=== PATIENT | female | born 1995 | race Asian ===

== ENCOUNTER 2019-12-25 16:53 | Outpatient (REF) | payer OTHER, SELFPAY | END 2019-12-25 16:54 | disposition home or self-care (01) | LOC: HO.LNP 16:53 | PROVIDERS: Visit Provider Nurse Practitioner Family | DX: J02.9 Acute pharyngitis, unspecified (principal) | CPT/HCPCS: 87071; 87880 ==

== ENCOUNTER 2019-12-30 14:00 | Outpatient (REF) | payer OTHER, SELFPAY ==
[2020-01-06 14:40] LABS: Influenza A PCR NEGATIVE (Negative); Influenza B PCR NEGATIVE (Negative); Resp Syncy Virus RNA Qual PCR NEGATIVE (Negative); SARS COV2 PCR INHOUSE NEGATIVE (Negative)
== END 2019-12-30 14:01 | disposition home or self-care (01) ==
LOC: HO.HMGCLNP 14:00
PROVIDERS: Visit Provider Nurse Practitioner Family
DX: Z20.828 Contact with and (suspected) exposure to other viral communicable diseases (principal)
CPT/HCPCS: 0241U

== ENCOUNTER 2020-01-30 13:13 | Outpatient (REF) | payer OTHER, SELFPAY ==
[2020-01-30 15:11] LABS: Influenza A PCR NEGATIVE (Negative); Influenza B PCR NEGATIVE (Negative); Resp Syncy Virus RNA Qual PCR NEGATIVE (Negative); SARS COV2 PCR INHOUSE NEGATIVE (Negative)
== END 2020-01-30 13:14 | disposition home or self-care (01) ==
LOC: HO.LAB 13:13
PROVIDERS: Visit Provider Hospitalist
DX: Z20.828 Contact with and (suspected) exposure to other viral communicable diseases (principal)
CPT/HCPCS: 0241U

== ENCOUNTER 2020-03-30 22:38 | Emergency (ER) | payer OTHER, SELFPAY ==
--- NOTE | 2020-03-30 22:49 | ED_ITS ---
HPI - Skin/Abscess/Foreign Bdy General Chief complaint: Eye Problems Stated complaint: CONTACT IN EYE Time Seen by Provider: 03/30/20 22:49 Source: patient Mode of arrival: ambulatory Limitations: no limitations History of Present Illness HPI narrative: 24 y/o female presents to the ED with right eye pain since she thinks she got a contact lens stuck. She states at 7pm she tried to take the contact lens out but was unable to. Several people in her home attempted to remove the lens. She states she does not know if the lens is still in her eye. She does not feel a foreign body in her eye but she has pain, watering and redness. Her vision is blurry due to watering, otherwise no vision changes. She is wearing her glasses on arrival. She reports mild headache as well. Related Data Home Medications Medication Instructions Recorded Confirmed acetaminophen 300 mg-codeine 30 mg tab PO 12/25/19 01/30/20 tablet amitriptyline 50 mg tablet 50 mg PO BEDTIME 12/25/19 01/30/20 clonazepam 1 mg tablet 3 mg PO Q OTHER DAY PRN 12/25/19 01/30/20 erenumab-aooe 140 mg/mL 140 mg SUBCUT 12/25/19 01/30/20 subcutaneous auto-injector flu vacc [id number] 6mos up(PF) ml IM 12/25/19 01/30/20 galcanezumab-gnlm 120 mg/mL mg SUBCUT 12/25/19 01/30/20 subcutaneous pen injector levocetirizine 5 mg tablet 5 mg PO DAILY 12/25/19 01/30/20 norethindrone 1 mg-ethinyl 1 tab PO DAILY 12/25/19 01/30/20 estradiol 35 mcg tablet ondansetron HCl 8 mg tablet mg PO 12/25/19 01/30/20 prazosin 2 mg capsule 2 mg PO BEDTIME 12/25/19 01/30/20 topiramate 100 mg tablet 100 mg PO BID 12/25/19 01/30/20 zolpidem 10 mg tablet 10 mg PO BEDTIME PRN 12/25/19 01/30/20 Previous Rx's Medication Instructions Recorded codeine 10 mg-guaifenesin 100 mg/5 5 ml PO Q6H PRN #120 ml 12/30/19 mL oral liquid azithromycin 250 mg tablet See Rx Instructions PO .COMPLEX #6 01/30/20 tab ciprofloxacin HCl See Rx Instructions .ROUTE 03/30/20 .COMPLEX #5 ml Allergies Allergy/AdvReac Type Severity Reaction Status Date / Time Penicillins [PENICILLINS] Allergy Mild RASH Verified 03/30/20 23:29 amoxicillin [From AUGMENTIN] Allergy Unknown RASH Verified 03/30/20 23:29 clavulanic acid Allergy Unknown RASH Verified 03/30/20 23:29 [From AUGMENTIN] Pork/Porcine Containing AdvReac Unknown rastafarian Verified 03/30/20 23:29 Products reasons [PORK/PORCINE CONTAINING PRODUCTS] Review of Systems Review of Systems: Constitutional: No Fever, No Chills ENT/Mouth: No sore throat, No Rhinorrhea, No Swallowing Difficulty Eyes: + Eye Pain, + Swelling, + Redness Skin: No Skin Lesions, No rash Neuro: No Dizziness, + Headache Psych: + Anxiety/Panic Heme/Lymph: No Bruising PMFSH Past Medical History Attestation statement: The following information was validated with the patient. Social History Social History Smoking Status: Never smoker Use of substances other than those prescribed or required for medical reasons: No Advance Directives: No Physical Exam Vital Signs: Vital Signs: Last Vital Signs Temp 97.4 F 03/30/20 22:56 Pulse 97 03/30/20 22:56 Resp 16 03/30/20 22:56 BP 115/79 03/30/20 22:56 Pulse Ox 100 03/30/20 22:56 Body Mass Index 24.7 Appearance: Alert. Oriented X3. No acute distress. HEENT: right eye with injection and mild upper lid edema, no foreign body identified. Fluorescine exam consistent with small linear corneal abrasion at 6 o'clock, no ulcerations CVS: Normal heart rate and rhythm. Pulses normal. Respiratory: No respiratory distress. Skin: Skin warm and dry. Normal skin color. Normal skin turgor. No rashes. Extremities: atraumatic, no edema Neuro: Oriented X 3. Non-focal Course Course Course Narrative: 24 yo female presenting with question of stuck contact in her right eye. No visible contact on exam. Consistent with corneal abrasion. Will give Rx for cipro gtts given she wears contacts. She was advised to not wear her contacts for at least 1 week and f/u with her doctor. Stable for d/c. Discharge Plan Discharge Clinical Impression: Contact lens stuck Corneal abrasion Qualifiers: Encounter type: initial encounter Laterality: right Qualified Code(s): S05.01XA - Injury of conjunctiva and corneal abrasion without foreign body, right eye, initial encounter Patient Disposition: Home, Self-Care Instructions: Corneal Abrasion (ED), Eye Foreign Body (ED) Additional Instructions: Do not wear your contacts for 1 week. Use the prescribed antibiotic drops as directed. Follow up with the eye doctor if you have persistent or worsening symptoms. Prescriptions: New ciprofloxacin HCl 0.3 % drops See Rx Instructions .ROUTE .COMPLEX Qty: 5 RF: 0 No Action clonazepam 1 mg tablet 3 mg PO Q OTHER DAY PRNRF: 0 Emgality Pen 120 mg/mL pen injector subcut RF: 0 prazosin 2 mg capsule 2 mg PO BEDTIME RF: 0 amitriptyline 50 mg tablet 50 mg PO BEDTIME RF: 0 topiramate 100 mg tablet 100 mg PO BID RF: 0 Alyacen 1/35 (28) 1-35 mg-mcg tablet 1 tab PO DAILY RF: 0 Fluzone Quad [id number] (PF) 60 mcg (15 mcg x 4)/0.5 mL syringe IM RF: 0 zolpidem 10 mg tablet 10 mg PO BEDTIME PRNRF: 0 acetaminophen-codeine 300-30 mg tablet PO RF: 0 levocetirizine 5 mg tablet 5 mg PO DAILY RF: 0 Aimovig Autoinjector 140 mg/mL auto-injector 140 mg subcut RF: 0 ondansetron HCl 8 mg tablet PO RF: 0 codeine-guaifenesin [Guaifenesin AC] 10-100 mg/5 mL liquid 5 ml PO Q6H PRN (Reason: allergy symptoms) Qty: 120 RF: 0 azithromycin 250 mg tablet See Rx Instructions PO .COMPLEX Qty: 6 RF: 0 Referrals: Reynaldo Simmons [Physician] - 2 days Stand Alone Forms: Work/School Release Interventions: ED Discharge Assessment Last Done: 03/30/20 23:34 Discharge Date/Time: 03/30/20 23:40
[2020-03-30 22:56] VITALS: BP 115/79; PULSE 97; RESP 16; TEMP 36.3; O2SAT 100; BMI 24.7
[2020-03-30] MEDS: Tetracaine HCl/PF 0.5% Oph Sol 4 ML DROPS 3 DROP EYE-RIGHT (23:29)
[2020-03-30] MEDS: Fluorescein Sodium STRIP 1 STRIP EYE-RIGHT (23:29)
== END 2020-03-30 23:40 | disposition home or self-care (01) ==
LOC: HO.ED 23:15
PROVIDERS: Emergency Provider Student in an Organized Health Care Education/Training Program; PCP Internal Medicine
DX: S05.01XA Injury of conjunctiva and corneal abrasion without foreign body, right eye, initial encounter (principal); X58.XXXA Exposure to other specified factors, initial encounter; Y93.89 Activity, other specified; Y92.019 Unspecified place in single-family (private) house as the place of occurrence of the external cause; Y99.9 Unspecified external cause status
CPT/HCPCS: 99283

== ENCOUNTER 2020-12-30 22:25 | Emergency (ER) | payer OTHER, SELFPAY ==
--- NOTE | ~2020-12-30 | CT_ITS ---
EXAMINATION: CT HEAD WITHOUT CONTRAST CLINICAL INFORMATION: Left mouth droop COMPARISON: Brain MRI and CT dated 11/18/2016 TECHNIQUE: Contiguous axial imaging was performed from the skull base to vertex without intravenous administration of contrast. This CT examination was performed using dose optimization techniques as appropriate, variously including the following: *Automated exposure control *Adjustment of mA and/or kV according to patient size (this includes techniques or standardized protocols for targeted exams where dose is matched to indication/reason for exam; i.e. extremities or head) *Use of iterative reconstruction technique DLP: 679 mGy-cm FINDINGS: There is no evidence of acute intracranial hemorrhage or territorial infarction. No abnormal mass effect or midline shift is seen. Coles to white matter differentiation is well preserved. No extra-axial fluid collections are identified. The ventricles are normal in size. There is no abnormal attenuation within the brain parenchyma. The osseous structures and soft tissues are normal. The mastoid air cells and visualized portions of the paranasal sinuses are well aerated. CT/CT head/brain wo con IMPRESSION: No acute intracranial pathology.
[2020-12-30 22:50] VITALS: BP 137/95; PULSE 105; RESP 20; TEMP 36.8; O2SAT 100; BMI 24.7
--- NOTE | 2020-12-30 22:52 | ED_ITS ---
HPI - General Adult General Chief complaint: Seizure Stated complaint: severe h/a numbness Time Seen by Provider: 12/30/20 22:49 Source: patient and family Mode of arrival: ambulatory Limitations: no limitations History of Present Illness HPI narrative: Patient comes emergency room complaining of a migraine headache and upset a seizure. Patient states that she has taken multiple [id number] medications for the migraine headache which is in the bilateral temples. Patient complaining of nausea. Patient states that she had a pseudo- seizure today. It is noted that patient has drooping of the left side of the mouth, patient states that this is normal for her when she gets migraine headaches, she gets drooping of the mouth and slurred speech, patient has had this multiple times.. Patient denies taking any medications specific for migraines. Patient denies chest pain, no shortness of breath. Patient is not on any medications for pseudoseizures, takes clonazepam, but medications for anxiety/depression. Related Data Home Medications Medication Instructions Recorded Confirmed acetaminophen 300 mg-codeine 30 mg tab PO 12/25/19 01/30/20 tablet amitriptyline 50 mg tablet 50 mg PO BEDTIME 12/25/19 01/30/20 clonazepam 1 mg tablet 3 mg PO Q OTHER DAY PRN 12/25/19 01/30/20 erenumab-aooe 140 mg/mL 140 mg SUBCUT 12/25/19 01/30/20 subcutaneous auto-injector flu vacc [id number] 6mos up(PF) ml IM 12/25/19 01/30/20 galcanezumab-gnlm 120 mg/mL mg SUBCUT 12/25/19 01/30/20 subcutaneous pen injector levocetirizine 5 mg tablet 5 mg PO DAILY 12/25/19 01/30/20 norethindrone 1 mg-ethinyl 1 tab PO DAILY 12/25/19 01/30/20 estradiol 35 mcg tablet ondansetron HCl 8 mg tablet mg PO 12/25/19 01/30/20 prazosin 2 mg capsule 2 mg PO BEDTIME 12/25/19 01/30/20 topiramate 100 mg tablet 100 mg PO BID 12/25/19 01/30/20 zolpidem 10 mg tablet 10 mg PO BEDTIME PRN 12/25/19 01/30/20 Previous Rx's Medication Instructions Recorded codeine 10 mg-guaifenesin 100 mg/5 5 ml PO Q6H PRN #120 ml 12/30/19 mL oral liquid (Guaifenesin AC) azithromycin 250 mg tablet See Rx Instructions PO .COMPLEX #6 01/30/20 tab ciprofloxacin HCl 0.3 % eye drops See Rx Instructions .ROUTE 03/30/20 .COMPLEX #5 ml azithromycin 500 mg tablet 500 mg PO DAILY 5 Days #5 tab 10/28/20 prednisone 20 mg tablet 20 mg PO .COMPLEX #18 tab 10/28/20 ciprofloxacin HCl 500 mg tablet 500 mg PO BID #10 tab 11/23/20 phenazopyridine 200 mg tablet 200 mg PO TID 3 Days #9 tab 11/23/20 (Pyridium) ketorolac 10 mg tablet 10 mg PO TID PRN 5 Days #10 tab 12/31/20 metoclopramide HCl 5 mg tablet 5 mg PO DAILY PRN #10 tab 12/31/20 (Reglan) Allergies Allergy/AdvReac Type Severity Reaction Status Date / Time Penicillins [PENICILLINS] Allergy Mild RASH Verified 11/23/20 08:46 amoxicillin [From AUGMENTIN] Allergy Unknown RASH Verified 11/23/20 08:46 clavulanic acid Allergy Unknown RASH Verified 11/23/20 08:46 [From AUGMENTIN] Pork/Porcine Containing AdvReac Unknown yarsani Verified 11/23/20 08:46 Products reasons [PORK/PORCINE CONTAINING PRODUCTS] Review of Systems Review of Systems: Constitutional : No Weight loss, No Fever, No Chills, No Night Sweats, No Fatigue, No Malaise ENT/Mouth : No Hearing loss, No Ear Pain, No Nasal Congestion, No Sinus Pain, No Hoarseness, No sore throat, No Rhinorrhea, No Swallowing Difficulty Eyes: No Eye Pain, No Swelling, No Redness, No Foreign Body, No Discharge, No Vision Changes Cardiovascular : No Chest Pain, No SOB, No Dyspnea on Exertion, No Orthopnea, No Edema, No Palpitations Respiratory : No Cough, No Sputum, No Wheezing, No Smoke Exposure, No Dyspnea Gastrointestinal : No Nausea, No Vomiting, No Diarrhea, No Constipation, No abdominal Pain, No Hematochezia, No Melena Genitourinary : no irregular bleeding, No Dysuria, No Urinary Frequency, No Hematuria, No Urinary Incontinence, No Urgency, No Flank Pain, No Urinary Flow Changes, No Hesitancy Musculoskeletal : No joint pain, No Myalgias, No Joint Swelling Skin : No Skin Lesions, No rash Neuro : No Weakness, No Numbness, no paresthesias, no loss of consciousness, complaining a migraine headache, complaining of left-sided mouth drooping and slurred speech that happens to her with migraines Psych : No Anxiety/Panic, No Depression, No SI/HI/AH/VH, No Social Issues, Heme/Lymph: No Bruising, No Bleeding,No Lymphadenopathy Endocrine : No Polyuria, No Polydipsia, No Temperature Intolerance [facility] Past Medical History Medical History (Updated 12/31/20 @ 02:27 by Yu Sahni MD) Migraines Pseudoseizures Social History Social History Patient Tobacco Use Status: Never used Tobacco Use of substances other than those prescribed or required for medical reasons: No Advance Directives: No Advance Directives Information Provided: Yes Physical Exam Vital Signs: Vital Signs: Last Vital Signs Temp 98.3 F 12/30/20 22:50 Pulse 104 H 12/31/20 02:20 Resp 20 12/31/20 02:20 BP 125/77 12/31/20 02:20 Pulse Ox 100 12/31/20 00:00 Body Mass Index 24.7 Const: Other: Appearance: Alert. Oriented X3. No acute distress, crying, very anxious Eyes: Pupils equal, round and reactive to light. ENT: Pharynx normal. Neck: Normal inspection. Neck supple. No lymph nodes noted. No crepitus CVS: Normal heart rate and rhythm. Pulses normal. Normal S1 and S2 Respiratory: No respiratory distress. Breath sounds normal. No Wheezing. No rales Abdomen: Soft and nontender. No rigidity. No distention. good BS x4 Skin: Skin warm and dry. Normal skin color. Normal skin turgor. Extremities: No lower extremity edema. No Lacerations. No Rash Neuro: Oriented X 3. Patient has left-sided mouth drooping, slurred speech but still able to talk in full sentences. Course Course Course Narrative: Head CT negative, patient has not had any seizures/pseudoseizures emergency room Patient had 1 dose of sumatriptan p.o., Ativan, patient states that she still has significant headache, but patient has no neurological deficits, patient has no mouth drooping or slurred speech. Patient received 1 dose of IV fluids, Toradol IV, Reglan, Benadryl. Patient states that she feels much better, no longer having headache. On physical exam prior to discharge, patient no longer having slurry speech or drooping of the left mouth, physical exam is normal. Neurologically intact. Patient asymptomatic. Patient ready for discharge. Medical Decision Making Lab Data Result diagrams: 12/30/20 23:11 12/30/20 23:11 Labs: Lab Results 12/30/20 12/30/20 12/31/20 Range/Units 23:11 23:11 01:37 WBC 13.3 H (4.8-10.8) X10*3/uL RBC 4.76 (4.20-5.50) X10*6/uL Hgb 13.2 (12.0-16.0) g/dl Hct 40.2 (37.0-47.0) % MCV 84.5 (80.0-98.0) fL MCH 27.7 (27.0-33.0) pg MCHC 32.8 (31.0-35.0) g/dl RDW 12.9 (11.0-16.0) % Plt Count 283 (160-400) X10*3/uL MPV 9.3 L (9.4-12.3) fL Immature Gran % (Auto) 0.3 (0.0-0.4) % Neut % (Auto) 61.4 (45-73) % Lymph % (Auto) 31.1 (20-40) % [place] % (Auto) 5.6 (2-11) % Eos % (Auto) 1.4 (0-4) % Baso % (Auto) 0.2 (0-2) % Lymph # (Auto) 4.1 (1.2-4.9) X10*3/uL [place] # (Auto) 0.7 (0.1-1.2) X10*3/uL Eos # (Auto) 0.2 (0.0-0.4) X10*3/uL Baso # (Auto) 0.0 (0.0-0.2) X10*3/uL Abs Immat Gran (auto) 0.04 H (0.00-0.03) X10*3/uL Absolute Neuts (auto) 8.1 (2.0-8.3) x10*3/uL Absolute Nucleated RBC 0.000 (0.0-0.012) X10*3/uL Nucleated RBC % (auto) 0.0 (0.0-0.2) /100WBC Sodium 139 (135-145) mmol/L Potassium 4.1 (3.3-5.1) mmol/L Chloride 107 (96-108) mmol/L Carbon Dioxide 21 L (22-29) mmol/L Anion Gap 15 (12-20) BUN 10 (9-16) mg/dL Creatinine 0.79 (0.5-1.4) mg/dL Estim Creat Clear Calc 98.5 Estimated GFR > 60 Random Glucose 83 (60-115) mg/dL Calcium 9.0 (8.4-10.2) mg/dL Total Bilirubin 0.4 (0.0-1.0) mg/dL Direct Bilirubin 0.2 (0.0-0.5) mg/dL AST 18 (5-31) U/L ALT 13 (0-31) U/L Alkaline Phosphatase 41 (39-117) U/L Total Protein 7.7 (6.5-8.0) g/dL Albumin 4.2 (3.5-5.0) g/dL Urine Color YELLOW Urine Appearance CLEAR Urine pH 6.0 (5.0-8.0) Ur Specific [place] 1.015 (1.005-1.025) Urine Protein NEG (NEG-TRACE) MG/DL Urine Glucose (UA) NEG (NEG) MG/DL Urine Ketones NEG (NEG) MG/DL Urine Blood TRACE (NEG) Urine Nitrite NEG (NEG) Ur Leukocyte Esterase NEG (NEG) Urine RBC 1-4 (0) /HPF Urine WBC 0-2 (0-4) /HPF Ur Squamous Epith Cells 2+ /LPF Urine Bacteria NONE /LPF Urine Mucus TRACE /LPF Urine Test (NEGATIVE) Urine Opiates Screen (Not Detect) Urine Fentanyl Screen (Not Detect) Ur Barbiturates Screen (Not Detect) Ur Phencyclidine Scrn (Not Detect) Ur Amphetamines Screen (Not Detect) U Benzodiazepines Scrn (Not Detect) Urine Cocaine Screen (Not Detect) U Marijuana (THC) Screen (Not Detect) 12/31/20 12/31/20 Range/Units 01:37 01:37 WBC (4.8-10.8) X10*3/uL RBC (4.20-5.50) X10*6/uL Hgb (12.0-16.0) g/dl Hct (37.0-47.0) % MCV (80.0-98.0) fL MCH (27.0-33.0) pg MCHC (31.0-35.0) g/dl RDW (11.0-16.0) % Plt Count (160-400) X10*3/uL MPV (9.4-12.3) fL Immature Gran % (Auto) (0.0-0.4) % Neut % (Auto) (45-73) % Lymph % (Auto) (20-40) % [place] % (Auto) (2-11) % Eos % (Auto) (0-4) % Baso % (Auto) (0-2) % Lymph # (Auto) (1.2-4.9) X10*3/uL [place] # (Auto) (0.1-1.2) X10*3/uL Eos # (Auto) (0.0-0.4) X10*3/uL Baso # (Auto) (0.0-0.2) X10*3/uL Abs Immat Gran (auto) (0.00-0.03) X10*3/uL Absolute Neuts (auto) (2.0-8.3) x10*3/uL Absolute Nucleated RBC (0.0-0.012) X10*3/uL Nucleated RBC % (auto) (0.0-0.2) /100WBC Sodium (135-145) mmol/L Potassium (3.3-5.1) mmol/L Chloride (96-108) mmol/L Carbon Dioxide (22-29) mmol/L Anion Gap (12-20) BUN (9-16) mg/dL Creatinine (0.5-1.4) mg/dL Estim Creat Clear Calc Estimated GFR Random Glucose (60-115) mg/dL Calcium (8.4-10.2) mg/dL Total Bilirubin (0.0-1.0) mg/dL Direct Bilirubin (0.0-0.5) mg/dL AST (5-31) U/L ALT (0-31) U/L Alkaline Phosphatase (39-117) U/L Total Protein (6.5-8.0) g/dL Albumin (3.5-5.0) g/dL Urine Color Urine Appearance Urine pH (5.0-8.0) Ur Specific [place] (1.005-1.025) Urine Protein (NEG-TRACE) MG/DL Urine Glucose (UA) (NEG) MG/DL Urine Ketones (NEG) MG/DL Urine Blood (NEG) Urine Nitrite (NEG) Ur Leukocyte Esterase (NEG) Urine RBC (0) /HPF Urine WBC (0-4) /HPF Ur Squamous Epith Cells /LPF Urine Bacteria /LPF Urine Mucus /LPF Urine Test NEGATIVE (NEGATIVE) Urine Opiates Screen Not Detected (Not Detect) Urine Fentanyl Screen Not Detected (Not Detect) Ur Barbiturates Screen Not Detected (Not Detect) Ur Phencyclidine Scrn Not Detected (Not Detect) Ur Amphetamines Screen Not Detected (Not Detect) U Benzodiazepines Scrn Not Detected (Not Detect) Urine Cocaine Screen Not Detected (Not Detect) U Marijuana (THC) Screen Not Detected (Not Detect) Imaging Data CT scan - head: Radiologist's impression: There is no evidence of acute intracranial hemorrhage or territorial infarction. No abnormal mass effect or midline shift is seen. Coles to white matter differentiation is well preserved. No extra-axial fluid collections are identified. The ventricles are normal in size. There is no abnormal attenuation within the brain parenchyma. The osseous structures and soft tissues are normal. The mastoid air cells and visualized portions of the paranasal sinuses are well aerated. ? CT/CT head/brain wo con IMPRESSION: No acute intracranial pathology. Discharge Plan Discharge Clinical Impression: Migraines Qualifiers: Migraine type: unspecified Status migrainosus presence: without status migrainosus Intractability: not intractable Qualified Code(s): G43.909 - Migraine, unspecified, not intractable, without status migrainosus Patient Disposition: Home, Self-Care Instructions: Acute Headache (ED) Additional Instructions: Please follow-up with your primary care physician tomorrow. If you have any worsening or new symptoms, please return to the emergency room or call 911 Prescriptions: New ketorolac 10 mg tablet 10 mg PO TID PRN (Reason: pain) 5 Days Qty: 10 RF: 0 metoclopramide HCl [Reglan] 5 mg tablet 5 mg PO DAILY PRN (Reason: nausea and vomiting) Qty: 10 RF: 0 No Action ciprofloxacin HCl 0.3 % drops See Rx Instructions .ROUTE .COMPLEX Qty: 5 RF: 0 clonazepam 1 mg tablet 3 mg PO Q OTHER DAY PRNRF: 0 Emgality Pen 120 mg/mL pen injector subcut RF: 0 prazosin 2 mg capsule 2 mg PO BEDTIME RF: 0 amitriptyline 50 mg tablet 50 mg PO BEDTIME RF: 0 topiramate 100 mg tablet 100 mg PO BID RF: 0 Alyacen 35 (28) 1-35 mg-mcg tablet 1 tab PO DAILY RF: 0 Fluzone Quad [id number] (PF) 60 mcg (15 mcg x 4)/0.5 mL syringe IM RF: 0 zolpidem 10 mg tablet 10 mg PO BEDTIME PRNRF: 0 acetaminophen-codeine 300-30 mg tablet PO RF: 0 levocetirizine 5 mg tablet 5 mg PO DAILY RF: 0 Aimovig Autoinjector 140 mg/mL auto-injector 140 mg subcut RF: 0 ondansetron HCl 8 mg tablet PO RF: 0 codeine-guaifenesin [Guaifenesin AC] 10-100 mg/5 mL liquid 5 ml PO Q6H PRN (Reason: allergy symptoms) Qty: 120 RF: 0 azithromycin 250 mg tablet See Rx Instructions PO .COMPLEX Qty: 6 RF: 0 azithromycin 500 mg tablet 500 mg PO DAILY 5 Days Qty: 5 RF: 0 prednisone 20 mg tablet 20 mg PO .COMPLEX Qty: 18 RF: 0 ciprofloxacin HCl 500 mg tablet 500 mg PO BID Qty: 10 RF: 0 phenazopyridine [Pyridium] 200 mg tablet 200 mg PO TID 3 Days Qty: 9 RF: 0
[2020-12-30] MEDS: LORazepam 2 MG/ML VIAL IVPUSH (22:55)
[2020-12-30 23:14] LABS: MANUAL DIFF FLAG NO
[2020-12-30] MEDS: SUMAtriptan succinate 100 MG TABLET PO (23:14)
[2020-12-30 23:15] LABS: Basophils Percent Auto 0.2 % (0-2); Eosinophils Absolute Auto 0.2 X10*3/uL (0.0-0.4); Eosinophils Percent Auto 1.4 % (0-4); Hematocrit 40.2 % (37.0-47.0); Hemoglobin 13.2 g/dl (12.0-16.0); Imm Gran Abs Auto 0.04 X10*3/uL (0.00-0.03); Imm Gran Pct Auto 0.3 % (0.0-0.4); Lymphocytes Absolute Auto 4.1 X10*3/uL (1.2-4.9); Lymphocytes Percent Auto 31.1 % (20-40); Mean Corpuscular HGB Conc 32.8 g/dl (31.0-35.0); Mean Corpuscular Hemoglobin 27.7 pg (27.0-33.0); Mean Corpuscular Volume 84.5 fL (80.0-98.0); Mean Platelet Volume 9.3 fL (9.4-12.3); Monocytes Absolute Auto 0.7 X10*3/uL (0.1-1.2); Monocytes Percent Auto 5.6 % (2-11); Neutrophils Absolute Auto 8.1 x10*3/uL (2.0-8.3); Neutrophils Percent Auto 61.4 % (45-73); Platelet Count 283 X10*3/uL (160-400); Red Blood Count 4.76 X10*6/uL (4.20-5.50); Red Cell Distribution Width 12.9 % (11.0-16.0); White Blood Count 13.3 X10*3/uL (4.8-10.8)
[2020-12-30] MEDS: 0.9 % Sodium Chloride 1,000 ML 999 ML IVCONT (23:15)
[2020-12-30 23:33] LABS: Alanine Aminotransferase 13 U/L (0-31); Albumin Level 4.2 g/dL (3.5-5.0); Alkaline Phosphatase 41 U/L (39-117); Anion Gap 15 (12-20); Aspartate Amino Transferase 18 U/L (5-31); Bilirubin Direct 0.2 mg/dL (0.0-0.5); Bilirubin Total 0.4 mg/dL (0.0-1.0); Blood Urea Nitrogen 10 mg/dL (9-16); Carbon Dioxide 21 mmol/L (22-29); Chloride 107 mmol/L (96-108); Creatinine Clr Calc Pharmacy 98.5; Estimated Glomerular Filt Rate > 60; Glucose Random 83 mg/dL (60-115); Potassium 4.1 mmol/L (3.3-5.1); Sodium 139 mmol/L (135-145); Total Protein 7.7 g/dL (6.5-8.0)
[2020-12-31] VITALS: BP 122/86; PULSE 87; RESP 16; O2SAT 100
[2020-12-31] MEDS: diphenhydrAMINE HCL 50 MG/ML VIAL 25 MG IVPUSH (01:12)
[2020-12-31] MEDS: Metoclopramide HCl 10 MG/2 ML VIAL IVPUSH (01:12)
[2020-12-31] MEDS: Ketorolac Tromethamine 15 MG/ML VIAL 30 MG IVPUSH (01:13)
[2020-12-31 02:00] VITALS: BP 124/80; PULSE 86; RESP 16
[2020-12-31 02:10] LABS: Amphetamine Screen Urine Not Detected (Not Detect); Barbiturates, Urine Not Detected (Not Detect); Benzodiazepines Screen Urine Not Detected (Not Detect); Cannabinoid Screen Urine Not Detected (Not Detect); Cocaine Screen Urine Not Detected (Not Detect); Fentanyl, urine Not Detected (Not Detect); Opiate Screen Urine Not Detected (Not Detect); Phencyclidine Screen Urine Not Detected (Not Detect)
[2020-12-31 02:12] LABS: UPreg QC Valid YES; Urine Pregnancy NEGATIVE (NEGATIVE)
[2020-12-31 02:14] LABS: Appearance Urine CLEAR; Color Urine YELLOW; Glucose Urine UA NEG (NEG); Leukocyte Esterase Urine NEG (NEG); Nitrite Urine NEG (NEG); Specific Gravity - Urine 1.015 (1.005-1.025); UACC Culture Trigger NO; Urine Blood TRACE (NEG); Urine Ketones NEG (NEG); Urine Protein NEG (NEG-TRACE)
[2020-12-31 02:16] LABS: Mucus Urine TRACE /LPF; Squamous Epithelial Cell Urine 2+ /LPF; WBC Urine 0-2 /HPF (0-4)
[2020-12-31 02:20] VITALS: BP 125/77; PULSE 104; RESP 20
== END 2020-12-31 02:45 | disposition home or self-care (01) ==
PROVIDERS: Emergency Provider Emergency Medicine; PCP Internal Medicine
DX: G43.909 Migraine, unspecified, not intractable, without status migrainosus (principal)
CPT/HCPCS: 36415; 70450; 80048; 80076; 80307; 81001; 81003; 81025; 85025; 96361; 96374; 96375; 99284; J1200; J1885; J2060; J2765

== ENCOUNTER 2021-06-04 07:22 | Emergency (ER) | payer OTHER, SELFPAY ==
[2021-06-04 07:25] VITALS: BP 134/80; PULSE 98; RESP 15; TEMP 36.1; O2SAT 98; BMI 26.5
--- NOTE | 2021-06-04 08:03 | ED.HA ---
HPI - Headache General Chief Complaint: Headache Stated Complaint: Migraine Time Seen by Provider: 06/04/21 07:56 Source: patient Mode of arrival: ambulatory Limitations: no limitations History of Present Illness HPI Narrative: Patient comes to the emergency room complaining of a migraine headache that started 4 days ago. Patient has tried oral Toradol, Tylenol No. 3. Patient is prone to migraines, states she sees Dr. Cochran from Neurology. Patient takes amitriptyline, montly erenumab shots. Patient states the migraine started with an aura, is on the right side of her head, complaining of photophobia, nausea. Related Data Home Medications Medication Instructions Recorded Confirmed acetaminophen 300 mg-codeine 30 mg tab PO 12/25/19 01/30/20 tablet amitriptyline 50 mg tablet 50 mg PO BEDTIME 12/25/19 01/30/20 clonazepam 1 mg tablet 3 mg PO Q OTHER DAY PRN 12/25/19 01/30/20 erenumab-aooe 140 mg/mL 140 mg SUBCUT 12/25/19 01/30/20 subcutaneous auto-injector flu vacc [id number] 6mos up(PF) ml IM 12/25/19 01/30/20 galcanezumab-gnlm 120 mg/mL mg SUBCUT 12/25/19 01/30/20 subcutaneous pen injector levocetirizine 5 mg tablet 5 mg PO DAILY 12/25/19 01/30/20 norethindrone 1 mg-ethinyl 1 tab PO DAILY 12/25/19 01/30/20 estradiol 35 mcg tablet ondansetron HCl 8 mg tablet mg PO 12/25/19 01/30/20 prazosin 2 mg capsule 2 mg PO BEDTIME 12/25/19 01/30/20 topiramate 100 mg tablet 100 mg PO BID 12/25/19 01/30/20 zolpidem 10 mg tablet 10 mg PO BEDTIME PRN 12/25/19 01/30/20 Previous Rx's Medication Instructions Recorded codeine 10 mg-guaifenesin 100 mg/5 5 ml PO Q6H PRN #120 ml 12/30/19 mL oral liquid (Guaifenesin AC) azithromycin 250 mg tablet See Rx Instructions PO .COMPLEX #6 01/30/20 tab ciprofloxacin HCl 0.3 % eye drops See Rx Instructions .ROUTE 03/30/20 .COMPLEX #5 ml azithromycin 500 mg tablet 500 mg PO DAILY 5 Days #5 tab 10/28/20 prednisone 20 mg tablet 20 mg PO .COMPLEX #18 tab 10/28/20 ciprofloxacin HCl 500 mg tablet 500 mg PO BID #10 tab 11/23/20 phenazopyridine 200 mg tablet 200 mg PO TID 3 Days #9 tab 11/23/20 (Pyridium) ketorolac 10 mg tablet 10 mg PO TID PRN 5 Days #10 tab 12/31/20 metoclopramide HCl 5 mg tablet 5 mg PO DAILY PRN #10 tab 12/31/20 (Reglan) diphenhydramine HCl 25 mg capsule 25 mg PO BEDTIME PRN #14 cap 06/04/21 (Benadryl) ketorolac 10 mg tablet 10 mg PO TID PRN 5 Days #10 tab 06/04/21 metoclopramide HCl 5 mg tablet 5 mg PO DAILY PRN #10 tab 06/04/21 (Reglan) Allergies Allergy/AdvReac Type Severity Reaction Status Date / Time Penicillins [PENICILLINS] Allergy Mild RASH Verified 11/23/20 08:46 amoxicillin [From AUGMENTIN] Allergy Unknown RASH Verified 11/23/20 08:46 clavulanic acid Allergy Unknown RASH Verified 11/23/20 08:46 [From AUGMENTIN] Pork/Porcine Containing AdvReac Unknown rastafari Verified 11/23/20 08:46 Products reasons [PORK/PORCINE CONTAINING PRODUCTS] Review of Systems Review of Systems: Constitutional : No Weight loss, No Fever, No Chills, No Night Sweats, No Fatigue, No Malaise ENT/Mouth : No Hearing loss, No Ear Pain, No Nasal Congestion, No Sinus Pain, No Hoarseness, No sore throat, No Rhinorrhea, No Swallowing Difficulty Eyes: No Eye Pain, No Swelling, No Redness, No Foreign Body, No Discharge, No Vision Changes Cardiovascular : No Chest Pain, No SOB, No Dyspnea on Exertion, No Orthopnea, No Edema, No Palpitations Respiratory : No Cough, No Sputum, No Wheezing, No Smoke Exposure, No Dyspnea Gastrointestinal : No Nausea, No Vomiting, No Diarrhea, No Constipation, No abdominal Pain, No Hematochezia, No Melena Genitourinary : no irregular bleeding, No Dysuria, No Urinary Frequency, No Hematuria, No Urinary Incontinence, No Urgency, No Flank Pain, No Urinary Flow Changes, No Hesitancy Musculoskeletal : No joint pain, No Myalgias, No Joint Swelling Skin : No Skin Lesions, No rash Neuro : No Weakness, No Numbness, No Paresthesias, No Loss of Consciousness, No Dizziness, complaining of a migraine Headache Psych : No Anxiety/Panic, No Depression, No SI/HI/AH/VH, No Social Issues, Heme/Lymph: No Bruising, No Bleeding,No Lymphadenopathy Endocrine : No Polyuria, No Polydipsia, No Temperature Intolerance [facility] Past Medical History Medical History (Updated 06/04/21 @ 10:43 by Yu Sahni MD) Migraines Pseudoseizures Social History Social History Alcohol intake: never Patient Tobacco Use Status: Never used Tobacco Use of substances other than those prescribed or required for medical reasons: No Advance Directives: No Advance Directives Information Provided: No Patient : No Physical Exam Vital Signs: Vital Signs: Last Vital Signs Temp 98.8 F 06/04/21 10:22 Pulse 84 06/04/21 10:22 Resp 14 06/04/21 10:22 BP 110/74 06/04/21 10:22 Pulse Ox 100 06/04/21 10:22 BMI result Body Mass Index 26.5 Course Course Course Narrative: Patient is getting IV fluids, Reglan, Benadryl and Toradol. We will reassess for clinical improvement Patient states she feels much better, headache nearly resolved. Patient requesting medication to help her sleep. Discharge Plan Discharge Clinical Impression: Migraines Patient Disposition: Home, Self-Care Instructions: Migraine Headache (ED) Additional Instructions: Please follow-up with your primary care physician tomorrow. If you have any worsening or new symptoms, please return to the emergency room or call 911 Prescriptions: New ketorolac 10 mg tablet 10 mg PO TID PRN (Reason: pain) 5 Days Qty: 10 0RF Rx Instructions: Do not use this medication with NSAIDs/Motrin. In case of migraines take together with Reglan metoclopramide HCl [Reglan] 5 mg tablet 5 mg PO DAILY PRN (Reason: nausea and vomiting) Qty: 10 0RF Rx Instructions: Take together with ketorolac p.r.n. migraine diphenhydramine HCl [Benadryl] 25 mg capsule 25 mg PO BEDTIME PRN (Reason: sleep) Qty: 14 0RF No Action ciprofloxacin HCl 0.3 % drops See Rx Instructions .ROUTE .COMPLEX Qty: 5 0RF Rx Instructions: put 1-2 drps in affected eye(s) every 2hr up to 8 times/day x2days; then 4 times/day x5days ketorolac 10 mg tablet 10 mg PO TID PRN (Reason: pain) 5 Days Qty: 10 0RF metoclopramide HCl [Reglan] 5 mg tablet 5 mg PO DAILY PRN (Reason: nausea and vomiting) Qty: 10 0RF Rx Instructions: Take together with Toradol p.r.n. migraine headache clonazepam 1 mg tablet 3 mg PO Q OTHER DAY PRN0RF Emgality Pen 120 mg/mL pen injector subcut 0RF prazosin 2 mg capsule 2 mg PO BEDTIME 0RF amitriptyline 50 mg tablet 50 mg PO BEDTIME 0RF topiramate 100 mg tablet 100 mg PO BID 0RF Alyacen /35 (28) 1-35 mg-mcg tablet 1 tab PO DAILY 0RF Fluzone Quad [id number] (PF) 60 mcg (15 mcg x 4)/0.5 mL syringe IM 0RF zolpidem 10 mg tablet 10 mg PO BEDTIME PRN0RF acetaminophen-codeine 300-30 mg tablet PO 0RF levocetirizine 5 mg tablet 5 mg PO DAILY 0RF Aimovig Autoinjector 140 mg/mL auto-injector 140 mg subcut 0RF ondansetron HCl 8 mg tablet PO 0RF codeine-guaifenesin [Guaifenesin AC] 10-100 mg/5 mL liquid 5 ml PO Q6H PRN (Reason: allergy symptoms) Qty: 120 0RF azithromycin 250 mg tablet See Rx Instructions PO .COMPLEX Qty: 6 0RF Rx Instructions: take 500 mg today (day 1), then 250 mg for 4 days (days 2-5) PO azithromycin 500 mg tablet 500 mg PO DAILY 5 Days Qty: 5 0RF prednisone 20 mg tablet 20 mg PO .COMPLEX Qty: 18 0RF Rx Instructions: 20 mg PO 3 p.o. daily for 3 days followed by 2 p.o. daily for 3 days followed by 1 p.o. daily for 3 days; ciprofloxacin HCl 500 mg tablet 500 mg PO BID Qty: 10 0RF phenazopyridine [Pyridium] 200 mg tablet 200 mg PO TID 3 Days Qty: 9 0RF
[2021-06-04] MEDS: Ketorolac Tromethamine 30 MG/ML VIAL IVPUSH (08:30)
[2021-06-04] MEDS: diphenhydrAMINE HCL 50 MG/ML VIAL 25 MG IVPUSH (08:31)
[2021-06-04] MEDS: Metoclopramide HCl 10 MG/2 ML VIAL IVPUSH (08:32)
[2021-06-04] MEDS: 0.9 % Sodium Chloride 1,000 ML 999 ML IVCONT (08:32)
[2021-06-04 10:22] VITALS: BP 110/74; PULSE 84; RESP 14; TEMP 37.1; O2SAT 100
== END 2021-06-04 10:58 | disposition home or self-care (01) ==
PROVIDERS: Emergency Provider Emergency Medicine; PCP Internal Medicine
DX: G43.909 Migraine, unspecified, not intractable, without status migrainosus (principal)
CPT/HCPCS: 96361; 96374; 96375; 99284; J1200; J1885; J2765

== ENCOUNTER 2021-12-05 10:49 | Outpatient (REF) | payer OTHER, SELFPAY ==
[2021-12-05 11:16] LABS: Binax Now Covid-19 Ag Negative (Negative)
[2021-12-05 11:17] LABS: Binax Internal Control QC Valid
== END 2021-12-05 10:50 | disposition home or self-care (01) ==
LOC: HO.HMGCLDS 10:49
PROVIDERS: PCP Internal Medicine; Visit Provider Internal Medicine
DX: Z20.822 Contact with and (suspected) exposure to COVID-19 (principal); J06.9 Acute upper respiratory infection, unspecified
CPT/HCPCS: 87811; C9803

== ENCOUNTER → 2022-04-06 10:07 | Outpatient (BNVA) | payer OTHER, SELFPAY | PROVIDERS: PCP Internal Medicine; Visit Provider Nurse Practitioner Family | DX: G43.109 Migraine with aura, not intractable, without status migrainosus (principal); G47.00 Insomnia, unspecified | CPT/HCPCS: 99202 ==

== ENCOUNTER 2022-04-19 17:40 | Outpatient (REF) | payer OTHER, SELFPAY ==
[2022-04-19 18:34] LABS: Influenza A PCR NEGATIVE (Negative); Influenza B PCR NEGATIVE (Negative); Resp Syncy Virus RNA Qual PCR NEGATIVE (Negative); SARS COV2 PCR INHOUSE NEGATIVE (Negative)
== END 2022-04-19 17:41 | disposition home or self-care (01) ==
LOC: HO.LNP 17:40
PROVIDERS: Visit Provider Nurse Practitioner Family
DX: Z20.822 Contact with and (suspected) exposure to COVID-19 (principal); R09.89 Other specified symptoms and signs involving the circulatory and respiratory systems
CPT/HCPCS: 0241U

== ENCOUNTER 2022-04-28 10:34 | Outpatient (REF) | payer OTHER, SELFPAY ==
[2022-04-28 11:24] LABS: MANUAL DIFF FLAG NO
[2022-04-28 11:39] LABS: Basophils Percent Auto 0.2 % (0-2); Eosinophils Absolute Auto 0.1 X10*3/uL (0.0-0.4); Eosinophils Percent Auto 0.7 % (0-4); Hematocrit 38.4 % (37.0-47.0); Hemoglobin 12.6 g/dl (12.0-16.0); Imm Gran Abs Auto 0.03 X10*3/uL (0.00-0.03); Imm Gran Pct Auto 0.3 % (0.0-0.4); Lymphocytes Absolute Auto 4.8 X10*3/uL (1.2-4.9); Mean Corpuscular HGB Conc 32.8 g/dl (31.0-35.0); Mean Corpuscular Hemoglobin 27.3 pg (27.0-33.0); Mean Corpuscular Volume 83.3 fL (80.0-98.0); Mean Platelet Volume 10.4 fL (9.4-12.3); Monocytes Absolute Auto 0.6 X10*3/uL (0.1-1.2); Monocytes Percent Auto 5.7 % (2-11); Neutrophils Absolute Auto 4.8 x10*3/uL (2.0-8.3); Neutrophils Percent Auto 46.1 % (45-73); Platelet Count 295 X10*3/uL (160-400); Red Blood Count 4.61 X10*6/uL (4.20-5.50); Red Cell Distribution Width 12.8 % (11.0-16.0); White Blood Count 10.3 X10*3/uL (4.8-10.8)
[2022-04-28 12:39] LABS: Glucose Fasting 76 mg/dL (60-99)
[2022-04-28 13:17] LABS: TSH reflex Free T4 3.53 uIU/mL (0.32-4.0); Vitamin B12 272 pg/mL (200-900); Vitamin D 25-OH Total 7.6 ng/mL (>30)
== END 2022-04-28 10:35 | disposition home or self-care (01) ==
LOC: HO.HMGCLDS 10:34
PROVIDERS: PCP Internal Medicine; Visit Provider Internal Medicine
DX: F32.A Depression, unspecified (principal); F41.9 Anxiety disorder, unspecified; G47.00 Insomnia, unspecified; R12 Heartburn; R53.83 Other fatigue
CPT/HCPCS: 36415; 82306; 82607; 82746; 82947; 84443; 85025

== ENCOUNTER 2022-05-22 14:32 | Outpatient (REF) | payer OTHER, SELFPAY | END 2022-05-22 14:33 | disposition home or self-care (01) | LOC: HO.MDS 14:32 | PROVIDERS: Visit Provider Nurse Practitioner Family | DX: G43.109 Migraine with aura, not intractable, without status migrainosus (principal) | CPT/HCPCS: 96365; J3032 ==

== ENCOUNTER 2022-06-26 12:00 | Outpatient (RCR) | payer OTHER, SELFPAY ==
--- NOTE | 2022-06-26 13:24 | MHC.PT.EP ---
[facility] [place] [facility] [place] [facility] [place] Office [address] Jacki Kapadia [address] [phone] F: [phone] F: [phone] F: [phone] F: [phone] Physical Therapy Plan of Care Date of Evaluation: Date of Surgery: N/A Diagnosis: cervicalgia, migraine with aura (RC) Assessment: pt is a 26 y/o female presenting to physical therapy w/ referring diagnosis of cervicalgia, migraine with aura. Impairments include pain, decreased range of motion, decreased strength, impaired functional mobility, impaired postural awareness, and altered ambulation mechanics. pt is a good candidate for skilled PT due to age, potential remediation of impairments, typical disease/condition progression and prognosis, comorbidities, and motivation. pt would benefit from skilled PT intervention to provide a tailored strengthening and stretching exercise program, functional training, gait training, postural re-training, neuromuscular re-education, modalities as needed for pain, equipment safety demonstration. Frequency and Duration: The patient will be seen 1/wk for 6 wks Short Term Goals: pt will be I w/ HEP to promote self-management of condition. pt will demo proper sitting posture w/ lumbar roll to promote neutral spine w/ seated ADLs/work related tasks. Long-Term Goals: pt will improve B cervical rotation by 10 degrees to promote ease w/ head turns while driving. pt will report a statistically significant improvement in self-reported outcome measure, NDI, to promote return to PLOF. Treatment Plan: Modalities to reduce pain, spasms and effusion. Manual therapy to restore motion and function. Therapeutic exercise to improve strength and flexibility. Neuromuscular re-education for posture and balance. Therapeutic activities to return to functional activities of daily living. Electronically signed by: Mira Hernandez PT, DPT Please sign and return to therapist. Thank you for your referral.
--- NOTE | 2022-07-11 12:42 | MHC.PT.DC ---
[facility] [place] Office [place] Office [place] Office [address] Jacki Kapadia [address] [phone] F: [phone] F: [phone] F: [phone] F: [phone] Physical Therapy Discharge Report Diagnosis: cervicalgia, migraine with aura (RC) Date of Surgery: N/A Date of Evaluation: 06/26/22 Date of Discharge: 07/11/22 Treatments to Date: 1 Cancellations to Date: 0 No Shows to Date: 2 Discharge Status: Visit Non-compliance Discharge Summary: The patient only scheduled two follow-ups compared to the recommended 8+. She no showed the two she scheduled. She will be discharged for visit non-compliance. Of note, she did appear to have severe anxiety and may benefit from behavioral/mental therapy evaluation to determine if this may have any effect on her symptoms as well. I do not believe physical therapy alone would address all her symptoms. Electronically signed by: Mira Hernandez PT, DPT Please sign and return to therapist. Thank you for your referral.
== END 2022-07-11 12:42 | disposition home or self-care (01) ==
LOC: HO.PT 12:00
PROVIDERS: PCP Internal Medicine; Visit Provider Nurse Practitioner Family
DX: G43.109 Migraine with aura, not intractable, without status migrainosus (principal); M54.2 Cervicalgia
CPT/HCPCS: 97110; 97162; 97535

== ENCOUNTER 2022-08-21 08:12 | Outpatient (REF) | payer OTHER, SELFPAY | END 2022-08-21 08:13 | disposition home or self-care (01) | LOC: HO.MDS 08:12 | PROVIDERS: Visit Provider Nurse Practitioner Family | DX: G43.109 Migraine with aura, not intractable, without status migrainosus (principal) | CPT/HCPCS: 96365; J3032 ==

== ENCOUNTER 2022-11-22 14:34 | Outpatient (AMB) | payer OTHER, SELFPAY ==
--- NOTE | 2022-11-22 14:43 | MHC.OFFVIS ---
Intake Vital Signs 11/22/22 14:45 Height 5 ft 3 in Weight 154 lb 4 oz BMI 27.3 BP 100/84 Blood Pressure Location Rt brachial Pulse 79 Pulse Source Pulse Oximeter Pulse Oximetry (%) 98 Oxygen Delivery Method Room Air Intake Visit Reasons: headache/insomnia-LVM Intake Note: Patient presents for headache/ insomnia. Patient states I'm following up on medication, I'm due for medication and I've been getting headaches, I'm also having insomnia episodes I take Ambien and I sleep for about 3 hours you wake up and in between sleep. Allergies Penicillins [PENICILLINS] Allergy (Mild, Verified 11/22/22 14:47) RASH amoxicillin [From AUGMENTIN] Allergy (Unknown, Verified 11/22/22 14:47) RASH clavulanic acid [From AUGMENTIN] Allergy (Unknown, Verified 11/22/22 14:47) RASH Pork/Porcine Containing Products [PORK/PORCINE CONTAINING PRODUCTS] Adverse Reaction (Unknown, Verified 11/22/22 14:47) christianity reasons Medication List - Last Reconciled 11/22/22 by BRITTANY Dia buspirone 5 mg PO TID cholecalciferol (vitamin D3) 1,250 mcg PO QWEEK 3 months clonazepam 1 mg PO BEDTIME 30 days eptinezumab-jjmr (Vyepti) 100 mg IV [id number] 90 days famotidine 20 mg PO DAILY fluticasone propionate 50 mcg/actuation 1 spray intranasal Q12H levocetirizine 5 mg PO QPM naratriptan take 1/2 - 1 tab at onset of headache; if no relief may repeat 1 tab after at least 4 hrs; max = 2 tabs/24 hrs orally PRN; 30 days norethindrone-ethin estradiol 1-35 mg-mcg 1 tab PO DAILY ondansetron 4 mg PO Q8H PRN pantoprazole 40 mg PO DAILY prednisone 20 mg PO BID rizatriptan 5 - 10 mg (0.5 - 1 x 10 mg) PO Q2H PRN 21 days zolpidem 10 mg PO BEDTIME PRN 30 days HPI HPI Comments History of Present Illness Details 27-yr-old female presents for f/u visit. Pt denies any significant interval medical changes. Pt reports that her migraine attacks are much better controlled since starting Vyepti. She is now usually only having bothersome breakthrough migraines in the 7-9 days priro to her next Vyepti infusion. No side effects from use. She is not tolertaing Naratriptan. Sometimes reading can trigger headache- both from eye strain and need to focus. Pt reports she cannot fall asleep without taking her Ambien. This allows her to sleep for 3 hours, and then has fragmented sleep. Sometimes is she cannot fall back asleep, she will take an extra dose of Buspirone 5mg or an extra Ambien. Gets into bed around 9-10pm and does not fall asleep until 12-1am, and gets out of bed by 9-10am. Goes to the gym after work- to tire herself out. Often wakes up clenching and very tight. She is occasionally having panic attacks- triggered by stress, poor sleep, migraine. Noticing difficulty focusing, distractable, wanting to do multiple things at once. She is seeing a therapist every 2 weeks. She is also looking to be assessed for ADHD/ADD. [facility] Medical History Chronic heartburn Fatigue Pseudoseizures Surgical History Hx of appendectomy Family History Father Epilepsy Hypertension Diabetes Mental health disorder Mother Hyperthyroidism Sister Hyperthyroidism Social History Housing: House Alcohol intake: never Patient Tobacco Use Status: Never used Tobacco e-Cigarette/Vaping Use: Never Used Current occupational status: employed Cognitive needs: No Hearing needs: No Vision needs: Yes Review of Systems Const All systems reviewed & are unremarkable except as noted in HPI and below Physical Exam Vital Signs: Last Vital Signs Pulse 79 11/22/22 14:45 BP 100/84 11/22/22 14:45 Pulse Ox 98 11/22/22 14:45 Oxygen Delivery Method Room Air 11/22/22 14:45 BMI result Body Mass Index 27.3 Const General: cooperative and no acute distress Orientation/consciousness: patient oriented x3 HEENT Head: Yes normocephalic Resp Effort & Inspection: normal respiratory effort and able to speak in complete sentences Neuro General: patient oriented x3, gait normal and CN's II-XI intact bilaterally Cognition (Neuro): normal cognition Motor exam (neuro): 5/5 motor strength present throughout Psych Appearance: grossly normal Mental Status: mental status grossly normal Speech and movement: Normal speech and movement present Affect: normal affect Attitude: cooperative Thought process: Normal thought process present Thought content: Normal thought content present Insight: Good insight present (Psych) Judgement: Good judgement present (Psych) Assessment & Plan Assessment & Plan (1) Migraine with aura: Code(s): G43.109 - Migraine with aura, not intractable, without status migrainosus (2) Insomnia: Code(s): G47.00 - Insomnia, unspecified Plan For overall headache management: Discussed importance of good self-care, including but not limited to maintaining a healthy diet, adequate fluid intake, adequate sleep, and engaging in regular physical activity. For headache triggers: Track headaches. Eye exam as scheduled. For sleep: Continue Clonazepam 1mg qhs. Adjust Ambien from 10mg IR qhs prn to 12.5mg ER qhs prn.. Patient may benefit from listening to online CBTi resources- info given. Future considerations: Biofeedback. Gabapentin. For cognition- Info given on psychologist who does ADHD evaluations in the [facility]. ? For acute headache treatment: Re-try Ubrelvy 100mg prn- especially in the 1-2 weeks prior to her next Vyepti infusion is due. Previous acute migraine medication trials: Sumatriptan- chest burning. Ubrelvy 50mg samples- unsure of effect. Rizatripatn- not tolerated. Naratriptan- not tolerated. Acute migraine medication contraindications: none at this time. ? For headache prevention medication: Pt stopped Amitriptyline 75mg qhs- was not tolerating Continue Vyepti 100mg/ml IV infusion every 3 months, as pt is having significant reduction in migraine frequency. Previous migraine prevention medication trials: Topiramate- ineffective and mood changes. Propranolol- caused hypotension. Aimovig- nausea, joint pain. Ajovy- ineffective. Emgality- ineffective. Botox- x's 2 cycles- ineffective. Mag- ineffective. Migraine prevention medication contraindications: I would avoid atogepant d/t risk for worsening constipation. ? Information also given on non-pharmacological interventions, such as Cefaly or Nerivio neuromodulation devices. ? f/u in 4 months or sooner prn. Medications: New ubrogepant (Ubrelvy) take at onset of migraine, may repeat in 2hrs (may take w/ Ibuprofen) 50 - 100 mg (0.5 - 1 x 100 mg) PO ONCE 30 days PRN 16 tabs 3RF migraine headache zolpidem ER 12.5 mg PO BEDTIME 30 days PRN 30 tabs 2RF sleep Coding Level of Care Code Est Pt Level 4 (74519) Diagnoses Migraine with aura G43.109 Insomnia G47.00
[2022-11-22 14:45] VITALS: BP 100/84; PULSE 79; O2SAT 98; BMI 27.3
== END 2022-11-22 15:32 | disposition home or self-care (01) ==
PROVIDERS: PCP Internal Medicine; Visit Provider Nurse Practitioner Family
DX: G43.109 Migraine with aura, not intractable, without status migrainosus (principal); G47.00 Insomnia, unspecified
CPT/HCPCS: 99214

== ENCOUNTER → 2022-11-22 14:34 | Outpatient (BNVA) | payer OTHER, SELFPAY | PROVIDERS: PCP Internal Medicine; Visit Provider Nurse Practitioner Family | DX: G43.109 Migraine with aura, not intractable, without status migrainosus (principal); G47.00 Insomnia, unspecified | CPT/HCPCS: 99212 ==

== ENCOUNTER 2022-11-23 08:46 | Outpatient (REF) | payer OTHER, SELFPAY | END 2022-11-23 08:47 | disposition home or self-care (01) | LOC: HO.MDS 08:46 | PROVIDERS: Visit Provider Nurse Practitioner Family | DX: G43.109 Migraine with aura, not intractable, without status migrainosus (principal) | CPT/HCPCS: 96365; 96375; J1200; J2405; J3032 ==

== ENCOUNTER 2023-02-16 13:09 | Outpatient (AMB) | payer OTHER, SELFPAY ==
[2023-02-16 14:47] VITALS: BP 110/74; PULSE 76; O2SAT 99; BMI 27.3
--- NOTE | 2023-02-16 14:47 | AM.OFFWIN_ITS ---
Intake Vital Signs 02/16/23 14:47 Height 5 ft 3 in Weight 154 lb BMI 27.3 BP 110/74 Blood Pressure Location Rt brachial Position Sitting Pulse 76 Pulse Source Pulse Oximeter Pulse Oximetry (%) 99 Intake Visit Reasons: EST/sore throat ([phone]) Intake Note: pt is here today for sore throat started 1 week ago Patient Tobacco Use Status: Never used Tobacco Allergies eptinezumab-jjmr Allergy (Severe, Verified 02/16/23 15:12) throat swelling Penicillins [PENICILLINS] Allergy (Mild, Verified 02/16/23 15:12) RASH amoxicillin [From AUGMENTIN] Allergy (Unknown, Verified 02/16/23 15:12) RASH clavulanic acid [From AUGMENTIN] Allergy (Unknown, Verified 02/16/23 15:12) RASH Pork/Porcine Containing Products [PORK/PORCINE CONTAINING PRODUCTS] Adverse Reaction (Unknown, Verified 02/16/23 15:12) rastafari reasons Medication List - Last Reconciled 02/16/23 by Earnest Paredes MD buspirone 5 mg PO TID cholecalciferol (vitamin D3) 1,250 mcg PO QWEEK 3 months clonazepam 1 mg PO BEDTIME 30 days epinephrine 0.3 mg (0.3 mL) IM Q15M PRN 7 days famotidine 20 mg PO DAILY fluticasone propionate 50 mcg/actuation 1 spray intranasal Q12H levocetirizine 5 mg PO QPM naratriptan take 1/2 - 1 tab at onset of headache; if no relief may repeat 1 tab after at least 4 hrs; max = 2 tabs/24 hrs orally PRN; 30 days norethindrone-ethin estradiol 1-35 mg-mcg 1 tab PO DAILY ondansetron 4 mg PO Q8H PRN pantoprazole 40 mg PO DAILY prednisone 20 mg PO BID rizatriptan 5 - 10 mg (0.5 - 1 x 10 mg) PO Q2H PRN 21 days ubrogepant (Ubrelvy) 50 - 100 mg (0.5 - 1 x 100 mg) PO ONCE PRN 30 days zolpidem 10 mg PO BEDTIME PRN 30 days zolpidem ER 12.5 mg PO BEDTIME PRN 30 days Do you need a note to return to daycare/school/sports/work: No HPI EST/sore throat ([phone]) HPI Details Patient presents for a sick visit. Reporting symptoms of sinus congestion, sore throat and difficulty swallowing. Low-grade fever. No family member is sick. Recently travelled from [place]. Patient reports symptoms of malaise and fatigue. [facility] Medical History Chronic heartburn Fatigue Pseudoseizures Surgical History Hx of appendectomy Family History Father Epilepsy Hypertension Diabetes Mental health disorder Mother Hyperthyroidism Sister Hyperthyroidism Social History Housing: House Alcohol intake: never Patient Tobacco Use Status: Never used Tobacco e-Cigarette/Vaping Use: Never Used Current occupational status: employed Cognitive needs: No Hearing needs: No Vision needs: Yes Physical Exam Const General: cooperative and healthy appearing Nutritional Appearance: well nourished Orientation/consciousness: patient oriented x3 Limitations: no limitations HEENT Head: Yes normal to inspection Eyes General: appearance normal, both eyes and all related structures Neck Neck: Yes normal visual inspection Chest Chest palpation & inspection: normal palpation of entire chest wall Resp Effort & Inspection: normal respiratory effort Neuro General: patient oriented x3 Assessment & Plan Assessment & Plan (1) Acute bronchitis: Code(s): J20.9 - Acute bronchitis, unspecified Plan: Antibiotics ordered. Increase fluid intake. Tylenol for aches and pains. If symptoms worsen, follow-up here for a recheck. Coding Level of Care Code Est Pt Level 3 (54182) Diagnoses Acute bronchitis J20.9
== END 2023-02-16 15:34 | disposition home or self-care (01) ==
PROVIDERS: PCP Internal Medicine; Visit Provider Internal Medicine
DX: J20.9 Acute bronchitis, unspecified (principal)
CPT/HCPCS: 99213

== ENCOUNTER 2023-03-05 15:03 | Outpatient (REF) | payer OTHER, SELFPAY | END 2023-03-05 15:04 | disposition home or self-care (01) | LOC: HO.MDS 15:03 | PROVIDERS: Visit Provider Nurse Practitioner Family | DX: G43.109 Migraine with aura, not intractable, without status migrainosus (principal) | CPT/HCPCS: 96365; 96375; J1200; J1720; J3032 ==

== ENCOUNTER 2023-03-14 09:16 | Outpatient (AMB) | payer OTHER, SELFPAY ==
--- NOTE | 2023-03-14 09:16 | A.OFFVIS_ITS ---
Intake Intake Visit Reasons: f/u for HURTADO & Insomnia-LVM Intake Note: Patient presents for insomnia. not doing any better Allergies eptinezumab-jjmr Allergy (Severe, Verified 03/14/23 09:17) throat swelling Penicillins [PENICILLINS] Allergy (Mild, Verified 03/14/23 09:17) RASH amoxicillin [From AUGMENTIN] Allergy (Unknown, Verified 03/14/23 09:17) RASH clavulanic acid [From AUGMENTIN] Allergy (Unknown, Verified 03/14/23 09:17) RASH Pork/Porcine Containing Products [PORK/PORCINE CONTAINING PRODUCTS] Adverse Reaction (Unknown, Verified 03/14/23 09:17) yazdanism reasons Medication List - Last Reconciled 03/14/23 by BRITTANY Dia albuterol sulfate 90 mcg/actuation (Ventolin HFA) 1 inh inhalation QID PRN azithromycin take 500 mg today (day 1), then 250 mg for 4 days (days 2-5) PO buspirone 5 mg PO TID cholecalciferol (vitamin D3) 1,250 mcg PO QWEEK 3 months clonazepam 1 mg PO BEDTIME 30 days diphenhydramine-0.9 % sod.chlr 50 mg/50 mL 50 mg (50 mL) IV Q4H PRN 7 days epinephrine 0.3 mg (0.3 mL) IM Q15M PRN 7 days famotidine 20 mg PO DAILY fluticasone propionate 50 mcg/actuation 1 spray intranasal Q12H hydrocortisone sod succ (PF) 100mg prior to Vyepti infusion and then prn intravenously 2 times a day PRN; 7 days levocetirizine 5 mg PO QPM naratriptan take 1/2 - 1 tab at onset of headache; if no relief may repeat 1 tab after at least 4 hrs; max = 2 tabs/24 hrs orally PRN; 30 days norethindrone-ethin estradiol 1-35 mg-mcg 1 tab PO DAILY ondansetron 4 mg PO Q8H PRN ondansetron HCl 4 - 8 mg (2 - 4 mL) IV Q4H PRN 7 days pantoprazole 40 mg PO DAILY prednisone 20 mg PO BID rizatriptan 5 - 10 mg (0.5 - 1 x 10 mg) PO Q2H PRN 21 days ubrogepant (Ubrelvy) 50 - 100 mg (0.5 - 1 x 100 mg) PO ONCE PRN 30 days zolpidem 10 mg PO BEDTIME PRN 30 days HPI HPI Comments History of Present Illness Details 27-year-old female presents for f/u tele video visit via [employer]. Pt currently has URI symptoms, which she attributes to her COVID-19 vaccination yesterday which she did due to exposure to COVID. During the last Vyepti infusion, where she was pre-medicated w/ IV solu-medrol 10-15 minutes prior to the infusion, she developed throat tightness. She was given IV benadryl, and within 15 minutes the throat tightness resolved, did have some residual coughing, but otherwise felt fine. She would like to continue biopsy if possible, she has found it to be very effective in reducing her migraine. She does have an appointment w/ [facility] mental health to establish care w/ a psychiatrist to discuss treatment of her mood and ADHD symptoms. She continues to have sleep difficulties, but now finds that she is doing better on Ambien and to release melatonin. Baseline headache characteristics: Aura: She can see dark bubbles/circles- may come the day or so before. During the headache- this is more pronounced- dark circles, squirrly lines, and colors. Severe, Bitemporal throbbing pain a/w Photophobia, phonophobia, osmophobia, nausea, vomiting, jaw clenching, not right in space dizziness, generalized weakness, facial weakness, brain fog, left mouth mild spasms, stuttering/word finding difficulties, activity intolerance, pseudoseizures. Current number of typical migraine days per month: 1 attack per per week of shorter duration- now just 1-2 days, however increased to daily in the week prior to the Vyepti infusion. Average painfulness of these migraines: Severe on day 1, then mild on 2nd day Current number of non-migraine headache days per month: None Average painfulness of these headaches: n/a Current number of days of acute medication use per month: 3 Previous number of migraine days per month prior to starting current preventive tx: > 12 severe days per month. [facility] Medical History Chronic heartburn Fatigue Pseudoseizures Surgical History Hx of appendectomy Family History Father Epilepsy Hypertension Diabetes Mental health disorder Mother Hyperthyroidism Sister Hyperthyroidism Social History Housing: House Alcohol intake: never Patient Tobacco Use Status: Never used Tobacco e-Cigarette/Vaping Use: Never Used Current occupational status: employed Cognitive needs: No Hearing needs: No Vision needs: Yes Physical Exam Const General: cooperative and no acute distress Orientation/consciousness: patient oriented x3 HEENT Other: Mild audible nasal congestion Resp Effort & Inspection: normal respiratory effort and able to speak in complete sentences Neuro General: patient oriented x3 Cognition (Neuro): normal cognition Psych Appearance: grossly normal Mental Status: mental status grossly normal Speech and movement: Normal speech and movement present Affect: normal affect Attitude: cooperative Assessment & Plan Assessment & Plan (1) Migraine with aura: Code(s): G43.109 - Migraine with aura, not intractable, without status migrainosus (2) ADHD (attention deficit hyperactivity disorder): Code(s): F90.9 - Attention-deficit hyperactivity disorder, unspecified type (3) Bipolar disorder: Code(s): F31.9 - Bipolar disorder, unspecified (4) Insomnia: Code(s): G47.00 - Insomnia, unspecified Plan For overall headache management: Continue to optimize good self-care, including but not limited to maintaining a healthy diet, adequate fluid intake, adequate sleep, and engaging in regular physical activity. Track headaches. ? For sleep: Continue Clonazepam 1mg qhs. Continue Ambien from 10mg IR qhs prn. Continue melatonin PRN. Only Patient may benefit from listening to online CBTi resources- info was resting previously given. Future considerations: Biofeedback. Gabapentin. ? For ADHD and mood d/o- Psychiatry consult at [facility] as scheduled ? For acute headache treatment: Ubrelvy 100mg prn- especially in the 1-2 weeks prior to her next Vyepti infusion is due. Previous acute migraine medication trials: Sumatriptan- chest burning. Ubrelvy 50mg samples- unsure of effect. Rizatripatn- not tolerated. Naratriptan- not tolerated. Acute migraine medication contraindications: none at this time. ? For headache prevention medication: For now hold Vyepti 100mg/ml IV infusion every 3 months, as pt is having significant reduction in migraine frequency. Trial Qulipta 60 mg q.h.s.. Monitor for constipation, weight loss. If Qulipta ineffective, especially at the end of the Vyepti cycle approaches, reconsider trying Vyepti with a longer duration of pre-infusion steroid prophylactic treatment. Previous migraine prevention medication trials: Topiramate- ineffective and mood changes. Propranolol- caused hypotension. Aimovig- nausea, joint pain. Ajovy- ineffective. Emgality- ineffective. Botox- x's 2 cycles- ineffective. Mag- ineffective. Amitriptyline 75mg qhs- not tolerated. Migraine prevention medication contraindications: I would avoid atogepant d/t risk for worsening constipation. Nurtec G-tube contains pork, which is religiously contraindicated. ? Information also given on non-pharmacological interventions, such as Cefaly or Nerivio neuromodulation devices. ? f/u in early May or sooner prn. Medications: New atogepant at bedtime 60 mg PO DAILY 30 tabs 6RF 30 days Discontinued zolpidem ER Discontinued Reason: Doctor's Order 12.5 mg PO BEDTIME 30 days PRN 30 tabs 2RF sleep Telehealth Telehealth Location of provider rendering services: practice address Location of patient: address on file Patient Identification confirmed using: Name, : Yes Telehealth method: video Patient verbally consented to treatment: Yes Patient verbally consented to billing insurance company: Yes Patient informed of any privacy concerns related to visit: Yes Minutes spent on Phone/Video with Pt.: 30 Coding Level of Care Code Tele Est Pt Level 4 (13302) Diagnoses Migraine with aura G43.109 ADHD (attention deficit hyperactivity disorder) F90.9 Bipolar disorder F31.9 Insomnia G47.00
== END 2023-03-15 10:49 | disposition home or self-care (01) ==
LOC: HO.HSMS 09:16
PROVIDERS: PCP Internal Medicine; Visit Provider Nurse Practitioner Family
DX: G43.109 Migraine with aura, not intractable, without status migrainosus (principal); F90.9 Attention-deficit hyperactivity disorder, unspecified type; F31.9 Bipolar disorder, unspecified; G47.00 Insomnia, unspecified
CPT/HCPCS: 99214

== ENCOUNTER → 2023-03-14 09:16 | Outpatient (BNVA) | payer OTHER, SELFPAY | PROVIDERS: PCP Internal Medicine; Visit Provider Nurse Practitioner Family ==

== ENCOUNTER → 2023-04-11 08:33 | Outpatient (AMB) | payer OTHER, SELFPAY ==
[2023-04-11 08:38] VITALS: BP 100/68; PULSE 81; O2SAT 99; BMI 26.2
--- NOTE | 2023-04-11 08:38 | A.OFFPC_ITS ---
Vital Signs 04/11/23 08:38 Height 5 ft 3 in Weight 148 lb BMI 26.2 BP 100/68 Blood Pressure Location Lt brachial Position Sitting Pulse 81 Pulse Source Pulse Oximeter Pulse Oximetry (%) 99 Oxygen Delivery Method Room Air Intake Visit Reasons: Annual PE Intake Note: Pt is here today for her PE: last papsmear last year in [place] Is last menstrual period known: Yes Last menstrual period: 03/28/23 Allergies eptinezumab-jjmr Allergy (Severe, Verified 04/11/23 08:59) throat swelling Penicillins [PENICILLINS] Allergy (Mild, Verified 04/11/23 08:59) RASH amoxicillin [From AUGMENTIN] Allergy (Unknown, Verified 04/11/23 08:59) RASH clavulanic acid [From AUGMENTIN] Allergy (Unknown, Verified 04/11/23 08:59) RASH Pork/Porcine Containing Products [PORK/PORCINE CONTAINING PRODUCTS] Adverse Reaction (Unknown, Verified 04/11/23 08:59) sabianism reasons Medication List - Last Reconciled 04/11/23 by Мария Rodriguez MD albuterol sulfate 90 mcg/actuation (Ventolin HFA) 1 inh inhalation QID PRN atogepant 60 mg PO DAILY 30 days clonazepam 1 mg PO BEDTIME 30 days diphenhydramine-0.9 % sod.chlr 50 mg/50 mL 50 mg (50 mL) IV Q4H PRN 7 days epinephrine 0.3 mg (0.3 mL) IM Q15M PRN 7 days eptinezumab-jjmr (Vyepti) 100 mg IV [id number] hydrocortisone sod succ (PF) 100mg prior to Vyepti infusion and then prn intravenously 2 times a day PRN; 7 days levocetirizine 5 mg PO QPM norethindrone-ethin estradiol 1-35 mg-mcg 1 tab PO DAILY ondansetron 4 mg PO Q8H PRN ondansetron HCl 4 - 8 mg (2 - 4 mL) IV Q4H PRN 7 days ubrogepant (Ubrelvy) 50 - 100 mg (0.5 - 1 x 100 mg) PO ONCE PRN 30 days zolpidem 10 mg PO BEDTIME Tobacco use date assessed: 04/11/23 Dental Screening Dental Screen Date: 04/11/23 Did you have a dental visit in the last 12 months?: Yes Did you have a dental problem in the last 6 months where you did not have access to dental care?: No Was dental information given to patient?: Patient has dentist HPI Annual PE HPI Details 27-year-old lady with history of migrain e with aura, ADHD, bipolar disorder, primary insomnia, here today for her physical exam. She goes to [place] for her routine Pap and pelvic exam, last done a year ago is up-to-date with her COVID vaccinations including booster and flu shot as well as Tdap. Requesting to have an STI screening. She is currently being followed by [facility] neurology department for her chronic migraine with aura, insomnia and has been referred to [facility] psych for evaluation and treatment of her ADHD and bipolar disorder. She missed her appointment for this month, but already rescheduled for next month to be seen. [facility] Medical History (Updated 04/11/23 @ 23:58 by Мария Rodriguez MD) Vitamin D deficiency Family history of hyperthyroidism Chronic heartburn Fatigue Pseudoseizures Surgical History Hx of appendectomy Family History Father Epilepsy Hypertension Diabetes Mental health disorder Mother Hyperthyroidism Sister Hyperthyroidism Social History Housing: House Alcohol intake: never Patient Tobacco Use Status: Never used Tobacco e-Cigarette/Vaping Use: Never Used Current occupational status: employed Cognitive needs: No Hearing needs: No Vision needs: Yes Female Reproductive History Menstrual Date of last menstrual period: 03/28/23 Date of last pap smear: 07/10/22 Other: Goes to [facility] for her routine Pap smear and pelvic exam Questionnaire PHQ-9 Over the last 2 weeks, how often have you been bothered by any of the following problems? 1. Little interest or pleasure in doing things: several days 2. Feeling down, depressed, or hopeless: several days 3. Trouble falling or staying asleep, or sleeping too much: nearly every day 4. Feeling tired or having little energy: several days 5. Poor appetite or overeating: several days 6. Feeling bad about yourself - or that you are a failure or have let yourself or your family down: several days 7. Trouble concentrating on things, such as reading the newspaper or watching television: several days 8. Moving or speaking so slowly that other people could have noticed. Or the opposite - being so fidgety or restless that you have been moving around a lot more than usual: several days 9. Thoughts that you would be better off or of hurting yourself in some way: not at all Total score: 10 Depression Screening Interpretation: Positive (Has bipolar disorder, referred to Psychiatry by her neurologist) Depression Screening Follow-up: Existing condition, In treatment and Community Mental Health Worker F/U Depression Screening Done: Yes 24634 - PHQ-9 Billing: Yes Source: Developed by Drs. Coy Gabriel, Patricia Ceja, Mahin Huang and colleagues, with an educational nishi from [employer]. Thrive Questionnaire Date Thrive assessed: 04/11/23 I am a: Patient What is your living situation today?: I have a steady place to live Within the past 12 months, did the food you bought not last and you didn't have the money to get more?: Never true Within the past 12 months, did you worry whether your food would run out before you got money to buy more?: Never true Do you have trouble paying for medicines?: No Do you have trouble getting transportation to medical appointments?: No Do you have trouble paying your heating and electricity bill?: No Do you have trouble taking care of your child, family member or friend?: No Do you have trouble with day-to-day activities such as bathing, preparing meals, shopping, managing finances, etc.?: No Are you currently unemployed and looking for a job?: No Are you interested in more education?: No Please select the resources that you would like help with: None THRIVE Score: 0 AUDIT C Alcohol Use Questionnaire (AUDIT-C) 1. How often do you have a drink containing alcohol?: Never 2. How many drinks containing alcohol do you have on a typical day when you are drinking?: 1 or 2 3. How often do you have six or more drinks on one occasion?: Never Total Score: 0 AXEL-7 AMB Questionnaire AXEL-7 Date AXEL - 7 assessed: 04/11/23 Feeling nervous, anxious, or on edge: 2 = More than half the days Not being able to stop or control worryin = More than half the days Worrying too much about different things: 2 = More than half the days Trouble relaxin = Several days Being so restless that it is hard to sit still: 2 = More than half the days Becoming easily annoyed or irritable: 2 = More than half the days Feeling afraid as if something awful might happen: 2 = More than half the days Total AXEL-7 score (0-4 normal; 5-9 mild; 10-14 moderate; 15-21 severe): 13 Source: Developed by Drs. Coy Gabriel, Patricia Ceja, Mahin Huang and colleagues, with an educational nishi from [employer]. AXEL-7 Assessment Billing AXEL-7 Assessment Tool: AXEL-7 Assessment 08910 Review of Systems Const Reports as per HPI Eyes Denies change in vision and Reports requires corrective lenses ENT Reports no additional complaints Card Denies chest pain, Denies rapid heart rate, Denies irregular heart rhythm, Denies lightheadedness and Denies dyspnea Resp Denies cough and Denies dyspnea GI Denies abdominal pain, Denies melena, Denies hematochezia and Denies heartburn Reports no additional complaints Musc Reports arthralgias Skin/Breast Denies breast swelling, Denies breast pain, Denies breast mass and Denies rash Neuro Reports no additional complaints Psych Reports anxiety and Reports depression Endo Reports no additional complaints Kendall/Lymph Denies easy bleeding Aller/Immun Reports no additional complaints Physical exam (Primary Care) Vital Signs: Last Vital Signs Pulse 81 04/11/23 08:38 BP 100/68 04/11/23 08:38 Pulse Ox 99 04/11/23 08:38 Oxygen Delivery Method Room Air 04/11/23 08:38 BMI result Body Mass Index 26.2 Tobacco/Smoking Status: Tobacco use Status Tobacco use date assessed 04/11/23 04/11/23 08:44 Patient Tobacco Use Status Never used Tobacco 04/11/23 08:44 e-Cigarette/Vaping Use Never Used 04/11/23 08:44 PHQ-9: PHQ-9 Score PHQ-9: Total score 10 04/11/23 16:03 Depression Screening Interpretation: Positive (Has bipolar disorder, referred to Psychiatry by her neurologist) Depression Screening Follow-up: Existing condition, In treatment and Community Mental Health Worker F/U Thrive Assessment: Date of Thrive Assessment Date Thrive assessed 04/11/23 04/11/23 08:44 Const Other: Alert oriented x3, no acute cardiorespiratory distress noted, ambulatory with normal gait Orientation/consciousness: patient oriented x3 HENMT Head: Yes normocephalic Ears: external ears normal, TM's normal bilaterally and EAC's normal General nose exam: Normal external nose present and No nasal discharge present Face and sinus: Yes face symmetric Mouth: Normal oral and palatal mucosa present and moist mucous membranes Eyes General: appearance normal, both eyes and all related structures Neck Neck: Yes full ROM, Yes no lymphadenopathy and Yes supple Thyroid: Thyroid normal Chest Breast/axilla inspection: normal inspection of the breasts Breast/axilla palpation: normal palpation of the breasts Resp Auscultation: clear to auscultation bilaterally Cardio Other: S1-S2 present regular rate and rhythm GI Palpation (GI): Soft to palpation, nontender, no guarding and no masses Auscultation: normal bowel sounds Other: Followed by OBGYN at [place] General: Yes no CVA tenderness and Yes deferred Back/Spine/Pelvis Back: no CVA tenderness and No back tenderness Skin General skin exam: no rashes or lesions noted Neuro General: patient oriented x3, gait normal, moves all extremities, Normal light touch and pain sensation, no focal motor deficits and CN's II-XI intact bilaterally Extrem General: Yes full ROM, Yes no joint enlargement, Yes no clubbing, cyanosis or edema, Yes no calf tenderness and Yes normal gait Psych Appearance: grossly normal and well kempt Mental Status: mental status grossly normal Speech and movement: Normal speech and movement present Affect: normal affect Attitude: cooperative Thought process: Normal thought process present Thought content: Normal thought content present Assessment and Plan Assessment & Plan (1) Bipolar disorder: Code(s): F31.9 - Bipolar disorder, unspecified Qualifiers: Active/Remission status: remission status unspecified Qualified Code(s): F31.9 - Bipolar disorder, unspecified Plan: She has been referred to see [facility] Psychiatry, has an appointment already scheduled for next month. (2) ADHD (attention deficit hyperactivity disorder): Code(s): F90.9 - Attention-deficit hyperactivity disorder, unspecified type Qualifiers: Attention deficit-hyperactivity disorder type: unspecified Qualified Code(s): F90.9 - Attention-deficit hyperactivity disorder, unspecified type Plan: She has been referred to see [facility] Psychiatry, has an appointment already scheduled for next month (3) Insomnia: Code(s): G47.00 - Insomnia, unspecified Qualifiers: Insomnia type: primary Qualified Code(s): F51.01 - Primary insomnia Plan: Followed by sleep clinic at [place], started on zolpidem 10 mg at bedtime as needed (4) Migraine with aura: Code(s): G43.109 - Migraine with aura, not intractable, without status migrainosus Qualifiers: Status migrainosus presence: without status migrainosus Intractability: not intractable Qualified Code(s): G43.109 - Migraine with aura, not intractable, without status migrainosus Plan: Followed by Neurology at [facility], currently on She has been referred to see [facility] Psychiatry, has an appointment already scheduled for next month peeryepti infusion every 3 month which has been helping control her migraines has not had any headache for the last several months since starting the medication (5) Annual visit for general adult medical examination with abnormal findings: Code(s): Z00.01 - Encounter for general adult medical examination with abnormal findings Plan: Will check appropriate labs. Recommended dental visit every 6 months and regular eye exams, at least every 2 years. Take adequate calcium in diet and vitamin-D 3 at 2000 IU per cap once a day, in addition to weight-bearing exercises to help maintain good muscle tone and weight control. Instructed to do self-breast exam, and recommended to get yearly mammogram, starting at age 40. Up-to-date with her vaccinations. (6) Screening examination for STI: Code(s): Z11.3 - Encounter for screening for infections with a predominantly sexual mode of transmission Plan: Will check hepatitis-B and C profile as well as HIV antibody. Patient without any history of exposure to STDs (7) Family history of hyperthyroidism: Code(s): Z83.49 - Family history of other endocrine, nutritional and metabolic diseases Plan: Check TSH and free T4 level (8) Vitamin D deficiency: Code(s): E55.9 - Vitamin D deficiency, unspecified Plan: Will check vitamin-D level Orders: Orders Comprehensive [place]. Panel Fast 04/11/23 E55.9 - Vitamin D deficiency, unspecified, G47.00 - Insomnia, unspecified, Z13.1 - Encounter for screening for diabetes mellitus, Z13.220 - Encounter for screening for lipoid disorders, Z83.49 - Family history of other endocrine, nutritional and metabolic diseases Lipid Panel 04/11/23 E55.9 - Vitamin D deficiency, unspecified, G47.00 - Insomnia, unspecified, Z13.1 - Encounter for screening for diabetes mellitus, Z13.220 - Encounter for screening for lipoid disorders, Z83.49 - Family history of other endocrine, nutritional and metabolic diseases HIV Ab/Ag 04/11/23 Z11.3 - Encounter for screening for infections with a predominantly sexual mode of transmission Hepatitis B,C Profile 04/11/23 Z11.3 - Encounter for screening for infections with a predominantly sexual mode of transmission Complete Blood Count Auto Diff 04/11/23 E55.9 - Vitamin D deficiency, unspecified, G47.00 - Insomnia, unspecified, Z13.1 - Encounter for screening for diabetes mellitus, Z13.220 - Encounter for screening for lipoid disorders, Z83.49 - Family history of other endocrine, nutritional and metabolic diseases Vitamin D 25-OH Total 04/11/23 E55.9 - Vitamin D deficiency, unspecified, G47.00 - Insomnia, unspecified, Z13.1 - Encounter for screening for diabetes mellitus, Z13.220 - Encounter for screening for lipoid disorders, Z83.49 - Family history of other endocrine, nutritional and metabolic diseases TSH reflex Free T4 04/11/23 E55.9 - Vitamin D deficiency, unspecified, G47.00 - Insomnia, unspecified, Z13.1 - Encounter for screening for diabetes mellitus, Z13.220 - Encounter for screening for lipoid disorders, Z83.49 - Family history of other endocrine, nutritional and metabolic diseases Coding Level of Care Code Est Pt Prev Care 18-39y(15409) Diagnoses Bipolar affective disorder, remission status unspecified F31.9 Active/Remission status: remission status unspecified Attention deficit hyperactivity disorder (ADHD), unspecified ADHD type F90.9 Attention deficit-hyperactivity disorder type: unspecified Primary insomnia F51.01 Insomnia type: primary Migraine with aura and without status migrainosus, not intractable G43.109 Status migrainosus presence: without status migrainosus Intractability: not intractable Annual visit for general adult medical examination with abnormal findings Z00.01 Screening examination for STI Z11.3 Family history of hyperthyroidism Z83.49 Vitamin D deficiency E55.9 Additional Codes AXEL-7 Assessment Billing - AXEL-7 Assessment Tool: AXEL-7 Assessment 84771 ([id number])
== END ==
PROVIDERS: PCP Internal Medicine; Visit Provider Internal Medicine
DX: Z00.00 Encounter for general adult medical examination without abnormal findings (principal); F31.9 Bipolar disorder, unspecified; F90.9 Attention-deficit hyperactivity disorder, unspecified type; F51.01 Primary insomnia; G43.109 Migraine with aura, not intractable, without status migrainosus; Z11.3 Encounter for screening for infections with a predominantly sexual mode of transmission; Z83.49 Family history of other endocrine, nutritional and metabolic diseases; E55.9 Vitamin D deficiency, unspecified
CPT/HCPCS: 99395

== ENCOUNTER 2023-04-11 09:25 | Outpatient (REF) | payer OTHER, SELFPAY ==
[2023-04-11 11:32] LABS: MANUAL DIFF FLAG NO
[2023-04-11 11:49] LABS: Basophils Percent Auto 0.5 % (0-2); Eosinophils Absolute Auto 0.1 X10*3/uL (0.0-0.4); Eosinophils Percent Auto 1.5 % (0-4); Hematocrit 38.3 % (37.0-47.0); Hemoglobin 12.9 g/dl (12.0-16.0); Imm Gran Abs Auto 0.02 X10*3/uL (0.00-0.03); Imm Gran Pct Auto 0.3 % (0.0-0.4); Lymphocytes Absolute Auto 2.9 X10*3/uL (1.2-4.9); Lymphocytes Percent Auto 36.7 % (20-40); Mean Corpuscular HGB Conc 33.7 g/dl (31.0-35.0); Mean Corpuscular Hemoglobin 28.2 pg (27.0-33.0); Mean Corpuscular Volume 83.6 fL (80.0-98.0); Mean Platelet Volume 10.2 fL (9.4-12.3); Monocytes Absolute Auto 0.4 X10*3/uL (0.1-1.2); Monocytes Percent Auto 5.5 % (2-11); Neutrophils Absolute Auto 4.3 x10*3/uL (2.0-8.3); Neutrophils Percent Auto 55.5 % (45-73); Platelet Count 266 X10*3/uL (160-400); Red Blood Count 4.58 X10*6/uL (4.20-5.50); Red Cell Distribution Width 12.6 % (11.0-16.0); White Blood Count 7.8 X10*3/uL (4.8-10.8)
[2023-04-11 12:45] LABS: Alanine Aminotransferase 16 U/L (0-31); Alkaline Phosphatase 43 U/L (39-117); Anion Gap 12 (12-20); Aspartate Amino Transferase 14 U/L (5-31); Bilirubin Total 0.3 mg/dL (0.0-1.0); Blood Urea Nitrogen 15 mg/dL (9-16); Calcium 9.1 mg/dL (8.4-10.2); Carbon Dioxide 25 mmol/L (22-29); Chloride 107 mmol/L (96-108); Cholesterol 152 mg/dL (<200); Estimated Glomerular Filt Rate > 60; Glucose Fasting 72 mg/dL (60-99); HDL Cholesterol 36 mg/dL (>40); LDL Cholesterol Calculated 94 mg/dL (<100); Potassium 3.7 mmol/L (3.3-5.1); Sodium 140 mmol/L (135-145); TSH reflex Free T4 1.96 uIU/mL (0.32-4.0); Total Protein 7.4 g/dL (6.5-8.0); Triglycerides 111 mg/dL (<150); Vitamin D 25-OH Total 90.6 ng/mL (>30)
[2023-04-12 04:19] LABS: HBc Num1 0.19 S/CO (0.00-0.79); HBsAGNum1 0.39 S/CO (0.00-0.99); HIV AB/AG Nonreactive (Nonreactive); HIV Num 1 0.05 S/CO (0.00-0.99); Hepatitis B Core Antibody Nonreactive (Nonreactive); Hepatitis B Surface Antigen Negative (Negative); ~Hepatitis B Surface Antibody REACTIVE (Nonreactive); ~Hepatitis C Antibody Nonreactive (Nonreactive)
== END 2023-04-11 09:26 | disposition home or self-care (01) ==
LOC: HO.HMGCLDS 09:25
PROVIDERS: PCP Internal Medicine; Visit Provider Internal Medicine
DX: G47.00 Insomnia, unspecified (principal); E55.9 Vitamin D deficiency, unspecified; Z83.49 Family history of other endocrine, nutritional and metabolic diseases; Z13.220 Encounter for screening for lipoid disorders; Z13.1 Encounter for screening for diabetes mellitus; Z11.3 Encounter for screening for infections with a predominantly sexual mode of transmission
CPT/HCPCS: 36415; 80053; 80061; 82306; 84443; 85025; 86704; 86706; 86803; 87340; 87389

== ENCOUNTER → 2023-06-26 10:40 | Outpatient (BNVA) | payer OTHER, SELFPAY | PROVIDERS: PCP Internal Medicine; Visit Provider Nurse Practitioner Family ==

== ENCOUNTER 2023-06-26 10:56 | Outpatient (AMB) | payer OTHER, SELFPAY ==
--- NOTE | 2023-06-26 10:40 | A.OFFVIS_ITS ---
Intake Visit Reasons: Follow Up - Confirmed Intake Note: Patient presents for f/u. Allergies eptinezumab-jjmr Allergy (Severe, Verified 06/26/23 10:41) throat swelling Penicillins [PENICILLINS] Allergy (Mild, Verified 06/26/23 10:41) RASH amoxicillin [From AUGMENTIN] Allergy (Unknown, Verified 06/26/23 10:41) RASH clavulanic acid [From AUGMENTIN] Allergy (Unknown, Verified 06/26/23 10:41) RASH Pork/Porcine Containing Products [PORK/PORCINE CONTAINING PRODUCTS] Adverse Reaction (Unknown, Verified 06/26/23 10:41) mandaen reasons Medication List - Last Reconciled 06/26/23 by BRITTANY Dia albuterol sulfate 90 mcg/actuation (Ventolin HFA) 1 inh inhalation QID PRN atogepant 60 mg PO DAILY 30 days clonazepam 1 mg PO BEDTIME 30 days diphenhydramine-0.9 % sod.chlr 50 mg/50 mL 50 mg (50 mL) IV Q4H PRN 7 days epinephrine 0.3 mg (0.3 mL) IM Q15M PRN 7 days eptinezumab-jjmr (Vyepti) 100 mg IV [id number] hydrocortisone sod succ (PF) 100mg prior to Vyepti infusion and then prn intravenously 2 times a day PRN; 7 days levocetirizine 5 mg PO QPM norethindrone-ethin estradiol 1-35 mg-mcg 1 tab PO DAILY ondansetron 4 mg PO Q8H PRN ondansetron HCl 4 - 8 mg (2 - 4 mL) IV Q4H PRN 7 days ubrogepant (Ubrelvy) 50 - 100 mg (0.5 - 1 x 100 mg) PO ONCE PRN 30 days zolpidem 10 mg PO BEDTIME 30 days HPI Comments Details: 27-yr-old female presents for f/u televideo visit via [facility]. Pt denies any significant interval medical changes. Pt reports that the Qulipta 60mg qd is very helpful. Pt has noted some wt loss and constipation. She is having less intense and less frequent headaches. She is having 3-4 headache days per week, but duration are intensity are much more tolerable. Before starting qulipta she was 6-7 migraine dyas per week, which would last longer. Using Advil as needed, finds it more helpful than Ubrelvy. Baseline headache characteristics: Aura: She can see dark bubbles/circles- may come the day or so before. During the headache- this is more pronounced- dark circles, squirrly lines, and colors. Severe, Bitemporal throbbing pain a/w Photophobia, phonophobia, osmophobia, nausea, vomiting, jaw clenching, not right in space dizziness, generalized weakness, facial weakness, brain fog, left mouth mild spasms, stuttering/word finding difficulties, activity intolerance, pseudoseizures. She also would like to discuss her sleep. States she is able to fall asleep for 4-5 hrs, but then wakes up and has di fficulty falling back asleep. She typically takes the Ambien 1/2 hr before going to bed, goes to bed once sleepy, around 10-11pm, then wakes up after 5hrs, and then she cannot fall back asleep. She is using the weighted, warming blanket, and white noise. Denies daytime naps. Takes coffee in the am. She has been noticing waking up biting her lip (like there a sustained lip bite, but no blood or tongue biting) and her whole body feels clenched. Denies loss of urine/bowel. Denies h/o seizure. Has a h/o daytime pseudoseizure sz's- but has not had an attack in a long time. She did have psychiatry consult- who suggested trying pt on lexapro. [facility] Medical History (Updated 06/26/23 @ 21:23 by BRITTANY Dia) Vitamin D deficiency Family history of hyperthyroidism Chronic heartburn Fatigue Pseudoseizures Surgical History Hx of appendectomy Family History Father Epilepsy Hypertension Diabetes Mental health disorder Mother Hyperthyroidism Sister Hyperthyroidism Social History Housing: House Alcohol intake: never Patient Tobacco Use Status: Never used Tobacco e-Cigarette/Vaping Use: Never Used Current occupational status: employed Cognitive needs: No Hearing needs: No Vision needs: Yes Physical Exam Const General: cooperative and no acute distress Orientation/consciousness: patient oriented x3 Resp Effort & Inspection: normal respiratory effort and able to speak in complete sentences Neuro General: patient oriented x3 Cognition (Neuro): normal cognition Psych Appearance: grossly normal Mental Status: mental status grossly normal Speech and movement: Normal speech and movement present Affect: normal affect Attitude: cooperative Telehealth Telehealth Tele[facility] Location of provider rendering services: practice address Location of patient: address on file Patient Identification confirmed using: Name, : Yes Telehealth method: video Patient verbally consented to treatment: Yes Patient verbally consented to billing insurance company: Yes Patient informed of any privacy concerns related to visit: Yes Minutes spent on Phone/Video with Pt.: 23 Assessment & Plan Assessment & Plan (1) Migraine with aura: Code(s): G43.109 - Migraine with aura, not intractable, without status migrainosus Category: Medical Qualifiers: Status migrainosus presence: without status migrainosus Intractability: not intractable Qualified Code(s): G43.109 - Migraine with aura, not intractable, without status migrainosus (2) Insomnia: Code(s): G47.00 - Insomnia, unspecified Category: Medical Qualifiers: Insomnia type: primary Qualified Code(s): F51.01 - Primary insomnia (3) Depression: Code(s): F32.A - Depression, unspecified Category: Medical (4) ADHD (attention deficit hyperactivity disorder): Code(s): F90.9 - Attention-deficit hyperactivity disorder, unspecified type Category: Medical Qualifiers: Attention deficit-hyperactivity disorder type: unspecified Qualified Code(s): F90.9 - Attention-deficit hyperactivity disorder, unspecified type Plan For overall headache management: Continue to optimize good self-care, including but not limited to maintaining a healthy diet, adequate fluid intake, adequate sleep, and engaging in regular physical activity. Track headaches. ? For sleep: Continue Clonazepam 1mg qhs. Continue Ambien 10mg IR qhs prn. Continue melatonin PRN. Future considerations: Biofeedback. Gabapentin. Lunesta/Belsomra. ? For ADHD and mood d/o- Reviewed Psychiatry consult. Start Lexapro 5mg qam. ? For acute headache treatment: Ubrelvy 100mg prn- especially in the 1-2 weeks prior to her next Vyepti infusion is due. Previous acute migraine medication trials: Sumatriptan- chest burning. Ubrelvy 50mg samples- unsure of effect. Rizatripatn- not tolerated. Naratriptan- not tolerated. Acute migraine medication contraindications: none at this time. ? For headache prevention medication: Continue Qulipta 60 mg q.h.s.. Monitor for constipation, weight loss. Start Magensium 400mg qhs- may help sleep and nocturnal muscle tension as well. Previous migraine prevention medication trials: Topiramate- ineffective and mood changes. Propranolol- caused hypotension. Aimovig- nausea, joint pain. Ajovy- ineffective. Emgality- ineffective. Botox- x's 2 cycles- ineffective. Mag- ineffective. Amitriptyline 75mg qhs- not tolerated. Vyepti 100mg- effective but caused hypersensitivity recation. Migraine prevention medication contraindications: Nurtec ODT- contains pork, which is religiously contraindicated. ? ? Will f/u w/ pt in 1-2 months and f/u in clinic in 6 months or sooner prn. Medications: New magnesium oxide may hold for loose stools 400 mg PO BEDTIME 30 tabs 6RF 30 days escitalopram oxalate 5 mg PO DAILY 30 tabs 3RF 30 days Scribe Plan - Not visible on output: Reviewed possible medication side effects, including but not limited to drowsiness, dizziness. Coding Level of Care Code Tele Est Pt Level 4 (17303) Diagnoses Migraine with aura and without status migrainosus, not intractable G43.109 Status migrainosus presence: without status migrainosus Intractability: not intractable Primary insomnia F51.01 Insomnia type: primary Depression F32.A Attention deficit hyperactivity disorder (ADHD), unspecified ADHD type F90.9 Attention deficit-hyperactivity disorder type: unspecified
== END 2023-06-26 11:00 | disposition home or self-care (01) ==
PROVIDERS: PCP Internal Medicine; Visit Provider Nurse Practitioner Family
DX: G43.109 Migraine with aura, not intractable, without status migrainosus (principal); F51.01 Primary insomnia; F32.A Depression, unspecified; F90.9 Attention-deficit hyperactivity disorder, unspecified type
CPT/HCPCS: 99214

== ENCOUNTER 2023-08-03 15:18 | Outpatient (AMB) | payer OTHER, SELFPAY ==
[2023-08-03 15:19] VITALS: BMI 26.6
--- NOTE | 2023-08-03 15:19 | A.OFFVIS_ITS ---
Vital Signs 08/03/23 15:19 Height 5 ft 3 in Weight 150 lb BMI 26.6 Intake Visit Reasons: ED follow up [employer] Required: No Accompanied by: Self / Same As Patient Allergies eptinezumab-jjmr Allergy (Severe, Verified 08/03/23 15:20) throat swelling Penicillins [PENICILLINS] Allergy (Mild, Verified 08/03/23 15:20) RASH amoxicillin [From AUGMENTIN] Allergy (Unknown, Verified 08/03/23 15:20) RASH clavulanic acid [From AUGMENTIN] Allergy (Unknown, Verified 08/03/23 15:20) RASH Pork/Porcine Containing Products [PORK/PORCINE CONTAINING PRODUCTS] Adverse Reaction (Unknown, Verified 08/03/23 15:20) mandaeism reasons Medication List - Last Reconciled 08/03/23 by BRITTANY Dia albuterol sulfate 90 mcg/actuation (Ventolin HFA) 1 inh inhalation QID PRN atogepant 60 mg PO DAILY 30 days blood sugar diagnostic (Advanced Glucose Meter Test Strips) As directed blood-glucose meter (Advanced Glucose Meter) As directed clonazepam 1 mg PO BEDTIME 30 days clonazepam 1 mg (2 x 0.5 mg) PO BEDTIME 30 days diphenhydramine-0.9 % sod.chlr 50 mg/50 mL 50 mg (50 mL) IV Q4H PRN 7 days epinephrine 0.3 mg (0.3 mL) IM Q15M PRN 7 days eptinezumab-jjmr (Vyepti) 100 mg IV [id number] escitalopram oxalate 5 mg PO DAILY 30 days hydrocortisone sod succ (PF) 100mg prior to Vyepti infusion and then prn intravenously 2 times a day PRN; 7 days levocetirizine 5 mg PO QPM magnesium oxide 400 mg PO BEDTIME 30 days norethindrone-ethin estradiol 1-35 mg-mcg 1 tab PO DAILY ondansetron 4 mg PO Q8H PRN ondansetron HCl 4 - 8 mg (2 - 4 mL) IV Q4H PRN 7 days zolpidem 10 mg PO BEDTIME 30 days HPI Comments Details: 27-yr-old female presents for f/u urgent televideo visit via [facility]- for episodes of pre-syncope/syncope.. Pt reports 2 weeks ago, she had a convulsive syncopal episode. She went to the ER, and work-up was normal. Her BG was 60-70. 07/17/23, Head CT w/o- unremarkable. Per [facility] note, 07/17/23: Patient did have 1 minute long tonic-clonic seizure upon arrival to the ED which was self resolving. ?She was given a Keppra load of 1 g. ?Patient appeared to be slightly confused after the episode however had no urinary incontinence or tongue biting. ?Patient then stated she was feeling very anxious, she was given 1 mg of IV Ativan as well as 2.5 mg of droperidol. 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 CBC, CMP, TSH- NL. There was elevated Lactate- [facility] 07/17/23 18:49 07/17/23 17:21 Lactate 1.7 ?5.8 H Normal Range: 0.5- 2.2 Ever since, she has had 4 episodes of feeling heart racing, head spinning, muscle stiffness, shaking, everything going black, almost fainting. It feels like she will pass out. This is f/b a strong headache. This feels similar to the episode 2 weeks ago. Now she feels she is able to prevent the episode from progressing into passing out, by sitting down and taking sugar (as there was thought that this may be due to low blood sugar). One episode started when working/standing. Today, she was sitting when her heart rate started racing, then got up and walked around when she felt the other symptoms and almost passed out. Overall she is not eating much- likely d/t the Qulipta, however it does help the migraine attacks. But today she had eaten and taken a coffee and a poweraide. She also wonders if this is r/t her recently starting lexapro- she ?'s serotonin syndrome [facility] Medical History (Updated 08/04/23 @ 16:44 by BRITTANY Dia) Vitamin D deficiency Family history of hyperthyroidism Chronic heartburn Fatigue Pseudoseizures Surgical History Hx of appendectomy Family History Father Epilepsy Hypertension Diabetes Mental health disorder Mother Hyperthyroidism Sister Hyperthyroidism Social History Housing: House Alcohol intake: never Patient Tobacco Use Status: Never used Tobacco e-Cigarette/Vaping Use: Never Used Current occupational status: employed Cognitive needs: No Hearing needs: No Vision needs: Yes Physical Exam Vital Signs: BMI result Body Mass Index 26.6 Const General: cooperative, no acute distress and tired appearing (pale) Orientation/consciousness: patient oriented x3 Resp Effort & Inspection: normal respiratory effort and able to speak in complete sentences Neuro General: patient oriented x3 Cognition (Neuro): normal cognition Psych Appearance: grossly normal Mental Status: mental status grossly normal Speech and movement: Normal speech and movement present Affect: normal affect Attitude: cooperative Telehealth Telehealth Telehealth Platform: [employer] Location of provider rendering services: practice address Location of patient: address on file Patient Identification confirmed using: Name, : Yes Telehealth method: video Patient verbally consented to treatment: Yes Patient verbally consented to billing insurance company: Yes Patient informed of any privacy concerns related to visit: Yes Minutes spent on Phone/Video with Pt.: 23 Assessment & Plan Assessment & Plan (1) Convulsive syncope: Comment: Pt had a witnessed 1 min tonic-clonic episode f/b fatigue and confusion in [facility] ER a/w transient elevated Lactate level- which does support a dx of epileptic convulsion. However, since, pt has had similar episodes where she has been able to halt the attack before full convulsive syncope commences- which does suggest a nonepileptic convulsion. Note- it is possible for a pt to have both epileptic and non-epileptic convulsion d/o's. ? if Lexapro, even at low 5mg dose, could be affecting seizure threshold and/or mood control. Code(s): R55 - Syncope and collapse Category: Medical (2) Palpitations: Code(s): R00.2 - Palpitations Category: Medical (3) Syncope: Code(s): R55 - Syncope and collapse Category: Medical (4) Pre-syncope: Code(s): R55 - Syncope and collapse Category: Medical (5) Migraine with aura: Code(s): G43.109 - Migraine with aura, not intractable, without status migrainosus Category: Medical Qualifiers: Status migrainosus presence: without status migrainosus Intractability: not intractable Qualified Code(s): G43.109 - Migraine with aura, not intractable, without status migrainosus Plan Hold Lexapro Increase fluids, including electrolyte beverages Add several small meals Check blood sugar during episodes palpitations, shakiness, and presyncope. Pt advised to undergo baseline EEG as already ordered, and 72 hr EEG, 72 hr Holter, and tilt table test. Will f/u upon review of above. Orders: Orders ECG Tilt Table Test 08/03/23 R00.2 - Palpitations, R55 - Syncope and collapse ECG 3 day holter monitor 08/03/23 R00.2 - Palpitations, R55 - Syncope and collapse EEG ambulatory 08/03/23 R00.2 - Palpitations, R55 - Syncope and collapse Medications: New blood-glucose meter (Advanced Glucose Meter) As directed 1 ea 0RF E16.2 - Hypoglycemia, unspecified blood sugar diagnostic (Advanced Glucose Meter Test Strips) As directed 100 ea 1RF E16.2 - Hypoglycemia, unspecified Coding Level of Care Code Tele Est Pt Level 4 (90355) Diagnoses Convulsive syncope R55 Palpitations R00.2 Syncope R55 Pre-syncope R55 Migraine with aura and without status migrainosus, not intractable G43.109 Status migrainosus presence: without status migrainosus Intractability: not intractable
== END 2023-08-03 16:00 ==
LOC: HO.HSMS 15:18
PROVIDERS: PCP Internal Medicine; Visit Provider Nurse Practitioner Family
DX: R55 Syncope and collapse (principal); R00.2 Palpitations; G43.109 Migraine with aura, not intractable, without status migrainosus
CPT/HCPCS: 99214

== ENCOUNTER → 2023-08-03 15:18 | Outpatient (BNVA) | payer OTHER, SELFPAY | PROVIDERS: PCP Internal Medicine; Visit Provider Nurse Practitioner Family ==

== ENCOUNTER → 2023-09-05 13:43 | Outpatient (REF) | payer OTHER, SELFPAY ==
--- NOTE | 2023-09-05 13:47 | HM_ITS ---
Conclusion: 1. Patient was monitored for total period of 2 days and 20 hours 2. Baseline was normal sinus rhythm with average heart of 75 beats per minute 3. No significant arrhythmias or pauses noted 4. Patient marked the counter 3 times with symptoms of heart racing, dizziness, dizziness and palpitation correlating with sinus rhythm and sinus tachycardia. MTDD
== END ==
LOC: HO.CARD 13:43
PROVIDERS: PCP Internal Medicine; Visit Provider Nurse Practitioner Family
DX: R00.2 Palpitations (principal); R55 Syncope and collapse
CPT/HCPCS: 93242

== ENCOUNTER → 2023-09-05 13:47 | Outpatient (BNV) | payer OTHER, SELFPAY | PROVIDERS: PCP Internal Medicine; Visit Provider Internal Medicine Cardiovascular Disease | DX: R00.0 Tachycardia, unspecified (principal) | CPT/HCPCS: 93244 ==

== ENCOUNTER 2023-10-17 09:02 | Outpatient (AMB) | payer OTHER, SELFPAY ==
[2023-10-17 09:11] VITALS: BP 104/60; PULSE 81; BMI 23.8
--- NOTE | 2023-10-17 09:11 | A.OFFVIS_ITS ---
Vital Signs 10/17/23 09:11 10/17/23 09:21 10/17/23 09:22 10/17/23 09:23 Height 5 ft 3 in Weight 134 lb 7.712 oz BMI 23.8 BP 104/60 108/70 116/75 119/79 Blood Pressure Location Lt brachial Lt brachial Lt brachial Lt brachial Position Sitting Supine Sitting Standing Pulse 81 85 82 100 Pulse Source Monitor Pulse Oximeter Pulse Oximeter Pulse Oximeter Intake Visit Reasons: [employer]/ Sharon Mares/Syncope and collapse Allergies eptinezumab-jjmr Allergy (Severe, Verified 08/03/23 15:20) throat swelling Penicillins [PENICILLINS] Allergy (Mild, Verified 08/03/23 15:20) RASH amoxicillin [From AUGMENTIN] Allergy (Unknown, Verified 08/03/23 15:20) RASH clavulanic acid [From AUGMENTIN] Allergy (Unknown, Verified 08/03/23 15:20) RASH Pork/Porcine Containing Products [PORK/PORCINE CONTAINING PRODUCTS] Adverse Reaction (Unknown, Verified 08/03/23 15:20) alevism reasons Medication List - Last Reconciled 10/17/23 by Eric Rucker MD albuterol sulfate 90 mcg/actuation (Ventolin HFA) 1 inh inhalation QID PRN atogepant 60 mg PO DAILY 30 days blood-glucose meter (Advanced Glucose Meter) As directed clonazepam 1 mg PO BEDTIME 30 days diphenhydramine-0.9 % sod.chlr 50 mg/50 mL 50 mg (50 mL) IV Q4H PRN 7 days epinephrine 0.3 mg (0.3 mL) IM Q15M PRN 7 days eptinezumab-jjmr (Vyepti) 100 mg IV [id number] hydrocortisone sod succ (PF) 100mg prior to Vyepti infusion and then prn intravenously 2 times a day PRN; 7 days magnesium oxide 400 mg PO BEDTIME 30 days norethindrone-ethin estradiol 1-35 mg-mcg 1 tab PO DAILY omega 8-[id number]-fish oil 100-160-1,000 mg (Fish Oil) caps PO ondansetron 4 mg PO Q8H PRN ondansetron HCl 4 - 8 mg (2 - 4 mL) IV Q4H PRN 7 days zolpidem 10 mg PO BEDTIME 30 days HPI Comments Details: Thank you for referring Juany in cardiology consultation today for recurrent episodes of syncope. She is a 28-year-old young woman who has been having long history of migraine headaches as well as possible bipolar disorder and ADHD. Patient over the last 3 months since starting Qlipta has been having episodes of passing out. Patient says since starting the medication for migraine which has helped her significantly she has had reduced appetite, she has lost weight but also has led to reduced oral water intake and salt intake. She said she just does not feel like eating much. However she has noticed increased symptoms of passing out in the last 3 months. Especially worse on heart days. She says a typical symptoms she would happen in upright position when she would start getting lightheaded and then feel cold and then she would feel heart racing and then feel like she has black out vision and then if she would not sit down she would pass out. She usually passes out even when she tries to sit down. The best weight aborted is when she lies down and raises her legs. She underwent a tilt-table test at [facility] which was positive for syncopal episode where she after prolonged period of standing had symptoms which would typical and subsequently she passed out and a blood pressure was 70 systolic. Heart rate prior to passing out was 140 beats per minute in sinus tachycardia with no clear drop in the heart rate reported. In the past she has to have similar symptoms and was labeled as having panic attacks although she says symptoms similar with heart racing. However she has never passed out in the past. These symptoms only have accentuated in this year since starting her medication with reduced oral intake. She denies any exertional chest pain. Denies any shortness of breath, orthopnea, PND, leg edema. [facility] Medical History Vitamin D deficiency Family history of hyperthyroidism Chronic heartburn Fatigue Pseudoseizures Surgical History Hx of appendectomy Family History Father Epilepsy Hypertension Diabetes Mental health disorder Mother Hyperthyroidism Sister Hyperthyroidism Social History Housing: House Alcohol intake: never Patient Tobacco Use Status: Never used Tobacco e-Cigarette/Vaping Use: Never Used Current occupational status: employed Cognitive needs: No Hearing needs: No Vision needs: Yes Review of Systems Const Denies weakness ENT Reports dizziness Card Denies chest pain, Denies chest pain with activity, Denies syncope, Denies rapid heart rate, Denies pedal edema, Denies edema, Denies leg edema, Denies lightheadedness, Denies palpitations, Denies dyspnea, Denies dyspnea on exertion and Denies orthopnea Resp Denies cough, Denies dyspnea and Denies dyspnea on exertion GI Denies hematochezia and Denies change in stool character Musc Denies abnormal gait, Denies muscle cramps, Denies muscle weakness, Denies numbness, Denies radiating pain into limb and Denies tingling Neuro Denies abnormal gait, Reports dizziness, Denies syncope, Denies numbness, Denies tingling and Denies weakness Endo Denies palpitations Physical Exam Vital Signs: Last Vital Signs Pulse 100 10/17/23 09:23 BP 119/79 10/17/23 09:23 BMI result Body Mass Index 23.8 Const General: cooperative, comfortable, no acute distress, well developed, alert, awake and Physically active Nutritional Appearance: average body habitus and well nourished Orientation/consciousness: patient oriented x3 Limitations: no limitations HEENT Head: Yes normocephalic and Yes atraumatic Neck Neck: Yes trachea midline, Yes supple and Yes no JVD Resp Effort & Inspection: normal respiratory effort Auscultation: clear to auscultation bilaterally Cardio Jugular venous distension: no JVD Palpation: normal PMI Rate: regular rate Rhythm: regular rhythm Heart sounds: S1 normal heart sound present, S2 normal heart sound present, no click, no gallops, no murmurs and no rubs GI Auscultation: normal bowel sounds Skin General skin exam: no rashes or lesions noted Neuro General: patient oriented x3 and no focal motor deficits Extrem General: Yes no clubbing, cyanosis or edema Psych Appearance: grossly normal Office Procedures EKG Details: EKG shows normal sinus rhythm with right axis deviation with nonspecific ST changes [id number], Complete Assessment & Plan Assessment & Plan (1) Syncope: Code(s): R55 - Syncope and collapse Category: Medical Plan: Syncopal episodes young woman since starting new migraine medication. I do not see any obvious reported incidences of orthostatic hypotension with this medication and based on mechanism of action less likely. Her most likely related to reduced oral intake of fluids as well as losing weight. She has clear demonstration of orthostatic syncope on tilt table test. Most likely diagnosis postural orthostatic tachycardia syndrome rather than neurocardiogenic syncope although management would be the same. This was discussed with her. I would obtain echocardiogram to evaluate for any structural abnormalities. I have advised her to increase fluid intake and liberalize her salt intake or solute intake significantly. If her symptoms remain persistently present at that point time would suggest her to be started on fludrocortisone therapy as intravascular volume expanded. This was discussed with her. Orthostatic precautions were discussed in details. She understands the symptoms well. Adv ised to seek most often supine position. Also advised to avoid prolonged standing postures which kind of provoked her symptoms as well. Will follow up in the clinic in 6 weeks time, sooner p.r.n.. Thank you for allowing me to partake in his care Orders: Orders TSH reflex Free T4 Today R55 - Syncope and collapse Metanephrines, Plasma Today R55 - Syncope and collapse Complete Blood Count Auto Diff Today R55 - Syncope and collapse Basic Metabolic Panel Today R55 - Syncope and collapse Coding Level of Care Code New Pt Level 4 (89774) Diagnoses Syncope R55 CPT Codes EKG - CPT: 20924-[id number], Complete ([id number])
[2023-10-17 09:21] VITALS: BP 108/70; PULSE 85
[2023-10-17 09:22] VITALS: BP 116/75; PULSE 82
[2023-10-17 09:23] VITALS: BP 119/79; PULSE 100
== END 2023-10-17 09:44 | disposition home or self-care (01) ==
PROVIDERS: PCP Internal Medicine; Visit Provider Internal Medicine Cardiovascular Disease
DX: R55 Syncope and collapse (principal)
CPT/HCPCS: 93010; 99204

== ENCOUNTER → 2023-10-17 09:02 | Outpatient (BNVA) | payer OTHER, SELFPAY | PROVIDERS: PCP Internal Medicine; Visit Provider Internal Medicine Cardiovascular Disease | DX: R55 Syncope and collapse (principal) | CPT/HCPCS: 93005; 99202 ==

== ENCOUNTER 2023-11-07 09:00 | Outpatient (REF) | payer OTHER, SELFPAY ==
[2023-11-07 10:09] LABS: MANUAL DIFF FLAG NO
[2023-11-07 10:18] LABS: Basophils Percent Auto 0.2 % (0-2); Eosinophils Absolute Auto 0.1 X10*3/uL (0.0-0.4); Eosinophils Percent Auto 1.6 % (0-4); Hematocrit 39.2 % (37.0-47.0); Hemoglobin 13.3 g/dl (12.0-16.0); Imm Gran Abs Auto 0.03 X10*3/uL (0.00-0.03); Imm Gran Pct Auto 0.4 % (0.0-0.4); Lymphocytes Absolute Auto 3.1 X10*3/uL (1.2-4.9); Mean Corpuscular HGB Conc 33.9 g/dl (31.0-35.0); Mean Corpuscular Hemoglobin 28.4 pg (27.0-33.0); Mean Corpuscular Volume 83.6 fL (80.0-98.0); Mean Platelet Volume 9.8 fL (9.4-12.3); Monocytes Absolute Auto 0.4 X10*3/uL (0.1-1.2); Neutrophils Absolute Auto 4.7 x10*3/uL (2.0-8.3); Neutrophils Percent Auto 55.8 % (45-73); Platelet Count 286 X10*3/uL (160-400); Red Blood Count 4.69 X10*6/uL (4.20-5.50); Red Cell Distribution Width 12.5 % (11.0-16.0); White Blood Count 8.3 X10*3/uL (4.8-10.8)
[2023-11-07 10:49] LABS: Anion Gap 13 (12-20); Blood Urea Nitrogen 15 mg/dL (9-16); Calcium 9.3 mg/dL (8.4-10.2); Carbon Dioxide 20 mmol/L (22-29); Chloride 108 mmol/L (96-108); Estimated Glomerular Filt Rate > 60; Glucose Random 110 mg/dL (60-115); Potassium 3.7 mmol/L (3.3-5.1); Sodium 137 mmol/L (135-145)
[2023-11-07 10:56] LABS: TSH reflex Free T4 2.52 uIU/mL (0.32-4.0)
== END 2023-11-07 09:01 | disposition home or self-care (01) ==
LOC: HO.HMGCLDS 09:00
PROVIDERS: PCP Internal Medicine; Visit Provider Internal Medicine Cardiovascular Disease
DX: R55 Syncope and collapse (principal)
CPT/HCPCS: 36415; 80048; 84443; 85025

== ENCOUNTER → 2023-12-12 | Outpatient (REF) | payer OTHER, SELFPAY ==
[2023-12-16 16:48] LABS: Metanephrine, Free 28 pg/mL (<=57); Normetanephrines, Free 43 pg/mL (<=148); Total Metanephrine, Free 71 pg/mL (<=205)
== END ==
LOC: HO.CARD
PROVIDERS: PCP Internal Medicine; Visit Provider Internal Medicine Cardiovascular Disease
DX: R55 Syncope and collapse (principal)
CPT/HCPCS: 36415; 83835

== ENCOUNTER 2024-01-04 07:57 | Outpatient (REF) | payer OTHER, SELFPAY ==
--- NOTE | 2024-01-04 08:02 | EEG_ITS ---
This is a 16-channel EEG with an EKG lead. The patient is reported awake during the tracing. Background EEG rhythm is low amplitude fast with no obvious asymmetry or paroxysmal tendency. Photic stimulation does not produce any significant abnormality. Hyperventilation is unremarkable. Cardiac lead does not reveal any significant abnormality. No sharp wave spikes or paroxysmal tendency noted. IMPRESSION: Unremarkable EEG. MD GEMMA Gomez/NEO / [id number]
== END 2024-01-04 07:58 | disposition home or self-care (01) ==
LOC: HO.NEURO 07:57
PROVIDERS: Visit Provider Nurse Practitioner Family
DX: R56.9 Unspecified convulsions (principal)
CPT/HCPCS: 95816

== ENCOUNTER 2024-02-18 11:18 | Outpatient (AMB) | payer OTHER, SELFPAY ==
--- NOTE | 2024-02-18 11:19 | A.OFFVIS_ITS ---
Intake Visit Reasons: 7 month F/U Intake Note: patient presents for follow up. Allergies eptinezumab-jjmr Allergy (Severe, Verified 02/18/24 11:19) throat swelling Penicillins [PENICILLINS] Allergy (Mild, Verified 02/18/24 11:19) RASH amoxicillin [From AUGMENTIN] Allergy (Unknown, Verified 02/18/24 11:19) RASH clavulanic acid [From AUGMENTIN] Allergy (Unknown, Verified 02/18/24 11:19) RASH Pork/Porcine Containing Products [PORK/PORCINE CONTAINING PRODUCTS] Adverse Re action (Unknown, Verified 02/18/24 11:19) jewish reasons Medication List - Last Reconciled 02/18/24 by BRITTANY Dia albuterol sulfate 90 mcg/actuation (Ventolin HFA) 1 inh inhalation QID PRN atogepant 60 mg PO DAILY 30 days blood-glucose meter (Advanced Glucose Meter) As directed clonazepam 1 mg PO BEDTIME 30 days diphenhydramine-0.9 % sod.chlr 50 mg/50 mL 50 mg (50 mL) IV Q4H PRN 7 days epinephrine 0.3 mg (0.3 mL) IM Q15M PRN 7 days eptinezumab-jjmr (Vyepti) 100 mg IV [id number] hydrocortisone sod succ (PF) 100mg prior to Vyepti infusion and then prn intravenously 2 times a day PRN; 7 days magnesium oxide 400 mg PO BEDTIME 30 days norethindrone-ethin estradiol 1-35 mg-mcg 1 tab PO DAILY omega 2-cmc-sdo-fish oil 100-160-1,000 mg (Fish Oil) caps PO ondansetron 4 mg PO Q8H PRN ondansetron HCl 4 - 8 mg (2 - 4 mL) IV Q4H PRN 7 days zolpidem 10 mg PO BEDTIME 30 days HPI Comments Details: 28-yr-old female presents for f/u televideo visit via [employer]- for episodes of pre-syncope/syncope and migraine. Pt had positive tilt table test for orthostatic syncope during the test. Report diagnosis was neurocardiogenic syncope, however follow-up cardiology consult suggested diagnosis is likely POTS. Pt has opted to try conservative measures for now. She is trying to take fluids and salt liberally- but is not specifically measuring her salt intake She states this is helping, but can still have episodes of lightheadedness and syncope. She also has been having increased anxiety, which is preventing her from sleeping well even with taking Ambien. Her ring alerts her that her nocturnal HR can be elevated in the 90s. Last night, she had to take Nyquil in addition to her Ambien in order to get some sleep. She is taking the Clonazepam qhs and 1 extra tab qhs for sleep. She is seeing a therapist, who suggested the patient start on a medication for her mood. She did have a psychiatric consult in 04/17/2023, who did not feel that patient had bipolar disorder. Recommendations included retrial of sertraline- as 50 mg was previously ineffective the patient notes she did not tolerate this, trying an alternate SSRI such as fluoxetine or paroxetine, trial of escitalopram- patient states she had tried this before did not tolerate, trial of an SNRI such as duloxetine, or could consider trial of lamotrigine for mood stabilization. Other previous trials: Bupropion caused severe mood changes. Her migraine is better controlled on Qulipta, now having 3-4 bad migraine days per month. Previous HPI, 08/03/23: Pt reports 2 weeks ago, she had a convulsive syncopal episode. She went to the ER, and work-up was normal. Her BG was 60-70. 07/17/23, Head CT w/o- unremarkable. Per [facility] note, 07/17/23: Patient did have 1 minute long tonic-clonic seizure upon arrival to the ED which was self resolving. ?She was given a Keppra load of 1 g. ?Patient appeared to be slightly confused after the episode however had no urinary incontinence or tongue biting. ?Patient then stated she was feeling very anxious, she was given 1 mg of IV Ativan as well as 2.5 mg of droperidol. 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 CBC, CMP, TSH- NL. There was elevated Lactate- [facility] 07/17/23 18:49 07/17/23 17:21 Lactate 1.7 ?5.8 H Normal Range: 0.5- 2.2 Ever since, she has had 4 episodes of feeling heart racing, head spinning, muscle stiffness, shaking, everything going black, almost fainting. It feels like she will pass out. This is f/b a strong headache. This feels similar to the episode 2 weeks ago. Now she feels she is able to prevent the episode from progressing into passing out, by sitting down and taking sugar (as there was thought that this may be due to low blood sugar). One episode started when working/standing. Today, she was sitting when her heart rate started racing, then got up and walked around when she felt the other symptoms and almost passed out. Overall she is not eating much- likely d/t the Qulipta, however it does help the migraine attacks. But today she had eaten and taken a coffee and a poweraide. She also wonders if this is r/t her recently starting lexapro- she ?'s serotonin syndrome [facility] Medical History (Updated 02/18/24 @ 13:27 by BRITTANY Dia) Bipolar disorder Vitamin D deficiency Family history of hyperthyroidism Chronic heartburn Fatigue Pseudoseizures Surgical History Hx of appendectomy Family History Father Epilepsy Hypertension Diabetes Mental health disorder Mother Hyperthyroidism Sister Hyperthyroidism Social History Housing: House Alcohol intake: never Patient Tobacco Use Status: Never used Tobacco e-Cigarette/Vaping Use: Never Used Current occupational status: employed Cognitive needs: No Hearing needs: No Vision needs: Yes Physical Exam Const General: cooperative, no acute distress and tired appearing (pale) Orientation/consciousness: patient oriented x3 Resp Effort & Inspection: normal respiratory effort and able to speak in complete sentences Neuro General: patient oriented x3 Cognition (Neuro): normal cognition Psych Appearance: grossly normal Mental Status: mental status grossly normal Speech and movement: Normal speech and movement present Affect: normal affect Attitude: cooperative Telehealth Telehealth Telehealth Platform: [facility] Location of provider rendering services: practice address Location of patient: address on file Patient Identification confirmed using: Name, : Yes Telehealth method: video Patient verbally consented to treatment: Yes Patient verbally consented to billing insurance company: Yes Patient informed of any privacy concerns related to visit: Yes Minutes spent on Phone/Video with Pt.: 29 Assessment & Plan Assessment & Plan (1) Convulsive syncope: Comment: Pt had a witnessed 1 min tonic-clonic episode f/b fatigue and confusion in [facility] ER a/w transient elevated Lactate level- which does support a dx of epileptic convulsion. However, since, pt has had similar episodes where she has been able to halt the attack before full convulsive syncope commences- which does suggest a nonepileptic convulsion. Note- it is possible for a pt to have both epileptic and non-epileptic convulsion d/o's. ? if Lexapro, even at low 5mg dose, could be affecting seizure threshold and/or mood control. Code(s): R55 - Syncope and collapse Category: Medical (2) Palpitations: Code(s): R00.2 - Palpitations Category: Medical (3) Syncope: Comment: POTS versus neurocardiogenic syncope Code(s): R55 - Syncope and collapse Category: Medical (4) Pre-syncope: Code(s): R55 - Syncope and collapse Category: Medical (5) Migraine with aura: Code(s): G43.109 - Migraine with aura, not intractable, without status migrainosus Category: Medical Qualifiers: Status migrainosus presence: without status migrainosus Intractability: not intractable Qualified Code(s): G43.109 - Migraine with aura, not intractable, without status migrainosus (6) Sleep difficulties: Code(s): G47.9 - Sleep disorder, unspecified Category: Medical Plan For syncope: Reviewed EEG: Unremarkable. Reviewed tilt-table test and Cardiology notes: Orthostatic hypotension, tachycardia. Likely POTS I have encouraged her to increase intake of fluids and salt, including electrolyte replacement beverages.. Try taking boluses of fluids prior to situations likely to exacerbate orthostatic hypotension, such as showering right during hot environments. Ensure she is eating several small meals a day. Follow-up with cardiology as scheduled. For sleep and mood: Start fluoxetine 20 mg q.a.m.- this may help POTS symptoms as well. Reviewed common adverse effects of fluoxetine, patient advised to notify us with any untoward effects. Start propranolol 10 mg p.o. b.i.d. p.r.n. anxiety, tachycardia. Patient advised to monitor for worsening of orthostatic lightheadedness. Continue clonazepam 1 mg q.h.s., may take extra half tab q.d. p.r.n.. For now, continue zolpidem 10 mg q.h.s.. For acute headache treatment: Ubrelvy 100mg prn. Previous acute migraine medication trials: Sumatriptan- chest burning. Ubrelvy 50mg samples- unsure of effect. Rizatripatn- not tolerated. Naratriptan- not minda erated. Acute migraine medication contraindications: none at this time. ? For headache prevention medication: Continue Qulipta 60 mg q.h.s.- reviewed that this may decrease her appetite, should be mindful to eat several small meals throughout the day to prevent syncopal episodes. Continue Magnesium 400mg qhs- is helpful for constipation as well. Previous migraine prevention medication trials: Topiramate- ineffective and mood changes. Propranolol- caused hypotension. Aimovig- nausea, joint pain. Ajovy- ineffective. Emgality- ineffective. Botox- x's 2 cycles- ineffective. Mag- ineffective. Amitriptyline 75mg qhs- not tolerated. Vyepti 100mg- effective but caused hypersensitivity recation. Migraine prevention medication contraindications: Nurtec ODT- contains pork, which is religiously contraindicated. Pt to follow-up in 3-4 months or sooner prn. Medications: New fluoxetine 20 mg PO QAM 30 days 30 tabs 6RF propranolol 10 mg PO BID 30 days PRN 30 tabs 1RF tachycardia and anxiety Changed From clonazepam 1 mg PO BEDTIME 30 days 30 tabs 3RF To clonazepam 1 - 2 mg (1 - 2 x 1 mg) PO BEDTIME 30 days 45 tabs 3RF Refilled magnesium oxide may hold for loose stools 400 mg PO BEDTIME 30 days 30 tabs 6RF atogepant at bedtime 60 mg PO DAILY 30 days 30 tabs 6RF ubrogepant (Ubrelvy) take at onset of migraine, may repeat in 2hrs (may take w/ Ibuprofen) 50 - 100 mg (0.5 - 1 x 100 mg) PO ONCE 30 days PRN 16 tabs 6RF migraine headache Coding Level of Care Code Tele Est Pt Level 4 (00674) Complex EM visit Add On G2211 Diagnoses Convulsive syncope R55 Palpitations R00.2 Syncope R55 Pre-syncope R55 Migraine with aura and without status migrainosus, not intractable G43.109 Status migrainosus presence: without status migrainosus Intractability: not intractable Sleep difficulties G47.9
== END 2024-02-21 08:06 | disposition home or self-care (01) ==
LOC: HO.HSMS 11:18
PROVIDERS: PCP Internal Medicine; Visit Provider Nurse Practitioner Family
DX: R55 Syncope and collapse (principal); R00.2 Palpitations; G43.109 Migraine with aura, not intractable, without status migrainosus; G47.9 Sleep disorder, unspecified
CPT/HCPCS: 99214; G2211

== ENCOUNTER → 2024-02-18 11:18 | Outpatient (BNVA) | payer OTHER, SELFPAY | PROVIDERS: PCP Internal Medicine; Visit Provider Nurse Practitioner Family ==

== ENCOUNTER 2024-05-13 10:50 | Outpatient (AMB) | payer OTHER, SELFPAY ==
[2024-05-13 10:54] VITALS: BP 102/60; PULSE 69; TEMP 36.6; O2SAT 100; BMI 22.0
--- NOTE | 2024-05-13 10:54 | AM.OFFWIN_ITS ---
Intake Vital Signs 05/13/24 10:54 Height 5 ft 3 in Weight 124 lb 2 oz BMI 22.0 BP 102/60 Blood Pressure Location Lt brachial Position Sitting Pulse 69 Pulse Source Pulse Oximeter Temp 97.8 F Temp Source Oral Pulse Oximetry (%) 100 Oxygen Delivery Method Room Air Intake Visit Reasons: EP-fainting spells & rt shoulder pain from a fall Intake Note: Pt presents to the office today for c/o fainting on sunday while walking up the stairs due to her POTS. Pt states she fell on her right side mainly hitting her shoulder. Pt does not remember if she hit her head but does have pain on the right side of her head. Patient Tobacco Use Status: Never used Tobacco Allergies eptinezumab-jjmr Allergy (Severe, Verified 05/13/24 10:57) throat swelling Penicillins [PENICILLINS] Allergy (Mild, Verified 05/13/24 10:57) RASH amoxicillin [From AUGMENTIN] Allergy (Unknown, Verified 05/13/24 10:57) RASH clavulanic acid [From AUGMENTIN] Allergy (Unknown, Verified 05/13/24 10:57) RASH Pork/Porcine Containing Products [PORK/PORCINE CONTAINING PRODUCTS] Adverse Reaction (Unknown, Verified 05/13/24 10:57) jainism reasons HPI HPI Comments History of Present Illness Details This is a 28-year-old female with a past medical history of postural tachycardic syndrome presenting for evaluation of right shoulder pain. Patient states that she is currently fasting from sunrise to sunset as it is Ramadan. Patient states secondary to fasting and her postural tachycardia syndrome, she feels significantly more lightheaded during this time. On Sunday, the patient was walking up the stairs with a laundry basket in her hand when she had a brief syncopal episode falling onto her right side. Patient is complaining of pain in her right shoulder that radiates to her neck. She has been taking Advil and Tylenol without relief of her symptoms. Additionally, patient states that she has had an unintentional 10 lb weight loss since September. She intends to follow up with her primary care provider as an outpatient. [facility] Medical History (Updated 05/13/24 @ 11:38 by Mira Soto PA-C) Bipolar disorder Vitamin D deficiency Family history of hyperthyroidism Chronic heartburn Fatigue Pseudoseizures Surgical History Hx of appendectomy Family History Father Epilepsy Hypertension Diabetes Mental health disorder Mother Hyperthyroidism Sister Hyperthyroidism Social History Housing: House Alcohol intake: never Patient Tobacco Use Status: Never used Tobacco e-Cigarette/Vaping Use: Never Used Current occupational status: employed Cognitive needs: No Hearing needs: No Vision needs: Yes Review of Systems Const All systems reviewed & are unremarkable except as noted in HPI and below Reports no additional complaints and Reports weight loss (10lb past six months) Eyes Reports no additional complaints ENT Reports no additional complaints and Reports neck pain Card Reports no additional complaints Resp Reports no additional complaints GI Reports no additional complaints Reports no additional complaints Musc Reports no additional complaints, Reports arthralgias (right shoulder) and Reports neck pain Skin/Breast Reports system reviewed and no additional complaints, except as documented Neuro Reports no additional complaints Psych Reports no additional complaints Endo Reports no additional complaints Kendall/Lymph Reports no additional complaints Aller/Immun Reports no additional complaints Physical Exam Vital Signs: Last Vital Signs Temp 97.8 F 05/13/24 10:54 Pulse 69 05/13/24 10:54 BP 102/60 05/13/24 10:54 Pulse Ox 100 05/13/24 10:54 Oxygen Delivery Method Room Air 05/13/24 10:54 BMI result Body Mass Index 22.0 Const General: cooperative, healthy appearing, comfortable, no acute distress, well developed, alert, awake and Physically active Nutritional Appearance: thin Orientation/consciousness: patient oriented x3 Limitations: no limitations Back/Spine/Pelvis Cervical Spine: normal cervical lordosis, cervical ROM normal, cervical muscular tenderness (right radiating to right SCM), No cervical spasm and No Cervical spine tenderness Skin General skin exam: no rashes or lesions noted Neuro General: patient oriented x3 Extrem Right upper extremity: normal to inspection and shoulder/upper arm (pain to palpation lateral right shoulder with limited abduction) Details: normal to inspection and tenderness Location: of the clavicle Laterality: laterally; no swelling Psych Appearance: grossly normal Mental Status: mental status grossly normal Affect: normal affect Insight: Good insight present (Psych) Judgement: Good judgement present (Psych) Results Reviewed Results Reviewed: No acute findings noted on imaging of the right shoulder. Assessment & Plan Assessment & Plan (1) Pain of right shoulder after trauma: Comment: No acute findings noted on imaging. Code(s): M25.511 - Pain in right shoulder Plan: Naprosyn b.i.d. to be taken prior to sunrise and after sunset daily with food for 7-10 days, ROM as tolerated and warm compresses. Orders: Orders XR shoulder RT min 2V Today M25.511 - Pain in right shoulder Medications: New naproxen (Naprosyn) 500 mg PO BID 20 tabs 0RF Coding Level of Care Code Est Pt Level 3 (02444) Diagnoses Pain of right shoulder after trauma M25.511 Time Spent (min) 25
--- OUTSIDE RECORDS SUMMARY | 2024-05-13 12:53 | XMS_ITS | Clinical Summary ---
Author Organization [employer] Address [address] [place] [address] [address] [place] [address] Care Team Providers Care Forger Helper Name Role Phone Unavailable Primary Care Provider Unavailabl e Allergies Active Allergy Reactions Criticality Noted Date Comments Amoxicillin-Pot Clavulanate 12/20/19 Medications clonazePAM (KlonoPIN) 1 MG tablet Take 1 tablet by mouth at bedtime. 12/20/2015 Active Alyacen 1/35 1-35 MG-MCG tablet Take 1 tablet by mouth Once per day. Active zolpidem CR (Ambien CR) 6.25 MG ER tablet Take 6.25 mg by mouth if needed at bedtime for sleep. Do not crush, chew, or split. Active Social History Tobacco Use Types Packs/Day Years Used Date Smoking Tobacco: Never Smokeless Tobacco: Never Tobacco Cessation:Counseling Given: Not Answered Alcohol Use Standard Drinks/Week Comments Defer 0 (1 standard drink = 0.6 oz pur e alcohol) Comments Unknown Sex and Gender Information Value Date Recorded Sex Assigned at Female 12/26/2021 10:26 AM EDT Legal Sex Female 10:26 AM EDT Gender Identity Female 12/26/2021 10:26 AM EDT Sexual Orientation Straight 12/26/2021 10 :26 AM EDT Last Filed Vital Signs Vital Sign Reading Time Taken Comments Blood Pressure 110/80 12/31/2023 10:48 AM EST Pulse - - Temperature - - Respiratory Rate - - Oxygen Saturation - - Inhaled Oxygen Concentration - - Weight - - Height - - Body Mass Index - - Plan of Treatment Health Maintenance Due Date Last Done Comments Depression Screening 1996 HIV Screening 1996 SDOH Screening 1996 Alcohol/Substance Use Screening 2008 Family Planning (PISQ) 08/22/2011 Hepatitis A Vaccines (2 of 2 - 2-dose series) 04/25/2013 10/25/2012 Hepatitis C Screening 2014 Pap Smear 2017 Dental Oral Exam 01/07/2022 07/06/2021, , 10/15/2013 Dental Prophylaxis 01/07/2022 07/06/2021, 0 11/22/2015, 10/15/2013 COVID-19 Vaccine ( season) 2023 03/04/2021, 03/23/2020, 02/24/2020 Influenza Vaccine (#1) 2023 , 11/09/2020, 11/02/2019, Additional history exists DTaP/Tdap/Td Vaccines (8 - Td or Tdap) 09/30/2024 09/30/2014, 10/25/2012, 08/20/2001, Additional history exists Dental X-Ray: Bitewings 12/20/2024 12/20/19 24, 07/06/2021, 11/22/2015, Additional history exists Tobacco Screening 12/30/2024 12/31/2023 Dental X-Ray: Full Mouth 12/20/2026 024, 07/06/2021, 11/12/2013 Zoster Vaccines (1 of 2) 2046 RSV Patients and Patients Aged 60 years or older (1 - 1-dose 75+ series) 08/22/2071 HIB Vaccines Completed 08/20/2001, 01/26, 1996, Additional history exists Hepatitis B Vaccines Completed 10/25/2012, 08/20/2001, 02/13/1998, Additional history exists IPV Vaccines Completed 10/25/2012, 07/28, 02/13/1998, Additional history exists Meningococcal Vaccine Completed 10/01/2014, 015 HPV Vaccines Aged Out No longer eligi ble based on patient's age to complete this topic Pneumococcal Vaccine: Pediatrics (0 to 5 Years) and At-Risk Patients (6 to 49) Years) Aged Out No longer eligible based on patient's age to complete this topic RSV under 20 months Aged Out No longe r eligible based on patient's age to complete this topic Rotavirus Vaccines Aged Out No longer eligible based on patient's age to complete this topic Procedures Procedure Name Priority Date/Time Associated Diagnosis Comments PANORAMIC RADIOGRAPHIC IMAGE Routine 12/20/2023 1:00 PM EDT BITEWING - SINGLE RADIOGRAPHIC IMAGE Routine 12/20/2023 1:00 PM EDT PROPHYLAXIS - ADULT Routine 07/06/2021 1 2:00 AM EDT PERIODIC ORAL EVALUATION - ESTABLISHED PATIENT Routine 07/06/2021 12:00 AM EDT from Last 3 Months or Most Recently Relevant to Health Maintenance Insurance [place] AD[place]
--- OUTSIDE RECORDS SUMMARY | 2024-05-13 12:53 | XMS_ITS | Encounter Summary ---
Author Organization [employer] [facility] Address [address] [place] [id number] Care Team Providers Care Shank Faker Name Role Phone Unavailable Primary Care Provider Unavailabl e Encounter Details Date Type Department Care Team (Latest Contact Info) Description 07/06/2021 Abstract [facility] CONVERSIONS Dental, Provider, DDS Social History Tobacco Use Types Packs/Day Years Used Date Smoking Tobacco: Never Assessed Comments Unknown Sex and Gender Information Value Date Recorded Sex Assigned at Female 12/26/2021 10:26 AM EDT Legal Sex Female 10:26 AM EDT Gender Identity Female 12/26/2021 10:26 AM EDT Sexual Orientation Straight 12/26/2021 10 :26 AM EDT documented as of this encounter Plan of Treatment Not on file documented as of this encounter Visit Diagnoses Not on filedocumented in this encounter
--- OUTSIDE RECORDS SUMMARY | 2024-05-13 12:53 | XMS_ITS | Encounter Summary ---
Author Organization [employer] Address [address] [place] [address] [address] [place] [address] Care Team Providers Care Metal Baler Name Role Phone Unavailable Primary Care Provider Unavailabl e Reason for Visit * Reason Onset Date Comments rs no show appt 02/05/2024 Encounter Details Date Type Department Care Team ([facility] st Contact Info) Description 02/05/2024 Telephone C [facility] [address] [place], [place] [phone] Jeffrey Pool [address] [place], [place] [phone] rs no show appt Social History Tobacco Use Types Packs/Day Years Used Date Smoking Tobacco: Never Smokeless Tobacco: Never Alcohol Use Standard Drinks/Week Comments Defer 0 (1 standard drink = 0.6 oz pur e alcohol) Comments Unknown Sex and Gender Information Value Date Recorded Sex Assigned at Female 12/26/2021 10:26 AM EDT Legal Sex Female 10:26 AM EDT Gender Identity Female 12/26/2021 10:26 AM EDT Sexual Orientation Straight 12/26/2021 10 :26 AM EDT documented as of this encounter Miscellaneous Notes * Telephone Encounter - Maria Del Carmen Iverson - 02/05/2024 9:37 AM EST Patient called in stating that she had half of rct done and then appt was cancelled by office. Reminded patient next 2 appts were no show and there is currently a waiting period before her next appt can be scheduled. Informed patient if she has pain or swelling she may come in as an emergency patient. However she is currently waiting to have it rescheduled and office will reach out to her with a date and time to come in. documented in this encounter Plan of Treatment Not on file documented as of this encounter Visit Diagnoses Not on filedocumented in this encounter
== END 2024-05-13 11:40 | disposition home or self-care (01) ==
PROVIDERS: PCP Internal Medicine; Visit Provider Physician Assistant
DX: M25.511 Pain in right shoulder (principal)

== ENCOUNTER 2024-05-13 10:50 | Outpatient (REF) | payer OTHER, SELFPAY ==
--- NOTE | ~2024-05-13 | XR_ITS ---
EXAMINATION: XR SHOULDER 2 OR MORE VIEWS RIGHT HISTORY: M25.511 - Pain in right shoulder COMPARISON: There are no prior studies available for comparison. FINDINGS: Three views of the right shoulder are submitted. Osseous mineralization is normal. There is no fracture or dislocation. The glenohumeral and acromioclavicular joint spaces are preserved. The soft tissues are unremarkable. XR/XR shoulder RT min 2V IMPRESSION: Unremarkable examination of the right shoulder. Electronically signed by: Coy Soler MD 05/13/2024 12:28 PM EDT
--- OUTSIDE RECORDS SUMMARY | 2024-05-13 13:43 | XMS_ITS | Clinical Summary ---
Author Organization [facility] Address [address] [place] [phone] Phone Care Team Providers Care Clutch Inspector Name Role Phone Мария Rodriguez MD Primary Care Provider [phone] Immunizations Name Administration Dates Next Due COVID-19 (Pre-12/18) Moderna Vaccine, mRNA, PF 03/04/2021,03/23/2020,02/24/2020 Hepatitis B Adult 10/25/2012, 2,02/13/1998,1996,1996,1996 Influenza Quadrivalent Prese rvative Free IM 12/01/2021 Influenza, Unspecified Formulation 11/09/2020 MMR 10/25/2012, 2,02/13/1998,1997 Tdap 10/25/2012 Varicella 10/25/2012,08/20/1997 Social History Tobacco Use Types Packs/Day Years Used Date Smoking Tobacco: Never Assessed Education Answer Date Recorded Are you interested in more education? Not on cruz e 06/24/2022 Are you concerned about learning? Not on file 06/24/2022 No 06/24/2022 No 06/24/2022 Digital Access Answer Date Recorded No 07/23/2022 No 07/23/2022 No 07/23/2022 Reliable internet access at home? Not on file 07/23/2022 Device with a working camera? Not on file Sex and Gender Information Value Date Recorded Sex Assigned at Not on file Gender Identity Not on file Sexual Orientation Not on file Plan of Treatment Health Maintenance Due Date Last Done Comments DEPRESSION SCREENING 2008 SMOKING Hx and SMOKELESS TOBACCO SCREENING 2009 HEPATITIS A VACCINES (2 of 2 - 2-dose series) 04/25/2013 10/25/2012 HEPATITIS B SCREENING 2014 HEPATITIS C SCREENING 2014 HIV ONE-TIME SCREENING (18-65 YEARS) 2014 PAP SMEAR 2017 INFLUENZA VACCINE (#1) 2023 , 11/09/2020, 11/02/2019, Additional history exists COVID-19 VACCINE ( season) 2023 03/04/2021, 03/23/2020, 02/24/2020 Adult Td,Tdap Booster 09/30/2024 09/30/2014, 013 HIB VACCINES Completed 08/20/2001, 01/26, 1996, Additional history exists HEPATITIS B VACCINES Completed 10/25/2012, 08/20/2001, 02/13/1998, Additional history exists MENINGOCOCCAL VACCINES (ACWY) Completed 10/01/2014 PNEUMOCOCCAL VACCINES (0-49 years) Aged Out No longer eligible based on patient's age to complete this topic Medical Devices Not on file Care Teams Clutch Inspector Relationship Specialty Start Date End Date Мария Rodriguez MD [facility] [place] [id number] PCP - General Internal Medicine 03/01/21 Additional Source Comments The information contained in this document represents components of the legal health record. It is not the complete legal health record.[facility]
--- OUTSIDE RECORDS SUMMARY | 2024-05-13 13:43 | XMS_ITS | Data Portability ---
Author Organization [facility], [address] Address [address] [place] [address] Assessment No assessment recorded. Plan of Treatment Reminders Order Date Submit Date Provider Last Modified By Organization Details Last Modified Time Details Appointments None recorded. Lab rapid strep group A, throat 2022 023 [place] [address] 20[address]_ayla desai, [address] [place] [address] [place], [address], 3 16:45:29 urinalysis, dipstick 2022 023 [email or web address] 20995_ayla desai, [address] [place] [address] [place], [address], 3 19:35:57 test, urine 2022 023 [email or web address] 20995_ayla desai, [address] [place] [address], [address], 3 19:35:57 Referral None recorded. Procedures None recorded. Surgeries None recorded. Imaging None recorded. Medication Orders prednisone 20 mg tablet 2022 023 DONNY [id number], [address] [place], [address], 3 17:05:09 benzonatate 100 mg capsule 2022 023 [place] [address] [id number], [address] [place], [address], 3 17:45:17 fexofenadin e-pseudoeph edrine ER 180 mg-240 mg tablet,ext. release 24 hr 2022 023 DONNY [id number], [address], [place], [address], 3 16:26:20 prednisone 20 mg tablet 2022 023 [email or web address] [facility][id number], [address] [place], [address], 3 16:25:57 Patient TargetsNo targets recorded. Patient Instructions Encounter Date Encounter Id Patient Instructions Last Modified By Organization Details Last Modified Time 04/24/2022 [id number] Sinusitis is an infection of the lining of the sinus cavities in your head. Sinusitis often follows a cold. It causes pain and pressure in your head and face. In most cases, sinusitis gets better on its own in 1 to 2 weeks. But some mild symptoms may last for several weeks. Sometimes antibiotics are needed. if you are having problems. It's also a good idea to know your test results and keep a list of the medicines you take. How can you care for yourself at home? Take an ubgx-rcr-oithzdy pain medicine. Avoid Ibuprofen, Aleve and Aspirin if . If the doctor prescribed antibiotics, take them as directed. Do not stop taking them just because you feel better. You need to take the full course of antibiotics. Be careful when taking czza-umu-erkznnw cold or influenza (flu) medicines and Tylenol at the same time. Many of these medicines have acetaminophen, which is Tylenol. Read the labels to make sure that you are not taking more than the recommended dose. Too much acetaminophen (Tylenol) can be harmful. Breathe warm, moist air from a steamy shower, a hot bath, or a sink filled with hot water. Avoid cold, dry air. Using a humidifier in your home may help. Follow the directions for cleaning the machine. Use saline (saltwater) nasal washes. This can help keep your nasal passages open and wash out mucus and bacteria. You can buy saline nose drops at a grocery store or drugstore. Or you can make your own at home by adding 1 teaspoon (5 millilitres) of salt and 1 teaspoon (5 millilitres) of baking soda to 2 cups (500 mL) of distilled water. If you make your own, fill a bulb syringe with the solution, insert the tip into your nostril, and squeeze gently. Blow your nose. Put a hot, wet towel or a warm gel pack on your face 3 or 4 times a day for 5 to 10 minutes each time. Try a decongestant nasal spray like oxymetazoline (Drixoral). Do not use it for more than 3 days in a row. Using it for more than 3 days can make your congestion worse. [email or web address] Not available 04/24/2022 19:33:59 08/14/2022 [id number] laryngitis: care instructions Not available 08/14/2022 17:05:07 upper respirator y infection (cold): care instructions Not available 08/14/2022 17:05:17 Reason for Referral None Reported. Results Created Date Observation Date Name Description Value Unit Range Abnormal Flag Note LastModifiedBy Organization Detail LastModifiedTime 04/24/1904/24/2022 pregn tegan test, urine Unknown Analyte Normal = Negati ve Not Available jina mac [address], [address], 04/24/2022 19:11:09 04/24/19 23 04/24/2022 pregn tegan test, urine Unknown Analyte negati ve Not Available 2099jina mac [address], [address], 04/24/2022 19:11:09 04/24/19 23 04/24/2022 urina lysis , dipst ick Unknown Analyte Normal = light yellow Not Available jina mac [address], [address], 04/24/2022 19:10:12 04/24/19 23 04/24/2022 urina lysis , dipst ick Unknown Analyte Dark Yellow Not Available jina mac [facility], [place], [address], 04/24/2022 19:10:12 04/24/19 23 04/24/2022 urina lysis , dipst ick Unknown Analyte Normal = clear Not Available jina mac [address], [place], [address], 04/24/2022 19:10:12 04/24/19 23 04/24/2022 urina lysis , dipst ick Unknown Analyte Clear Not Available ayla [address], [place], [address], 04/24/2022 19:10:12 04/24/19 23 04/24/2022 urina lysis , dipst ick Unknown Analyte Normal = negati ve Not Available jina mac [address], [place], [address], 04/24/2022 19:10:12 04/24/19 23 04/24/2022 urina lysis , dipst ick Unknown Analyte Negati ve Not Available jina mac [address], [place], [address], 04/24/2022 19:10:12 04/24/19 23 04/24/2022 urina lysis , dipst ick Unknown Analyte Normal = Negati ve Not Available jina mac [address], [place], [address], 04/24/2022 19:10:12 04/24/19 23 04/24/2022 urina lysis , dipst ick Unknown Analyte Negati ve Not Available jina mac [address], [place], [address], 04/24/2022 19:10:12 04/24/19 23 04/24/2022 urina lysis , dipst ick Unknown Analyte Normal = Negati ve Not Available jina mac [address], [place], [address], 04/24/2022 19:10:12 04/24/19 23 04/24/2022 urina lysis , dipst ick Unknown Analyte Trace Not Available [address], [place], [address], 04/24/2022 19:10:12 04/24/19 23 04/24/2022 urina lysis , dipst ick Unknown Analyte Normal = 1.010, 1.015, 1.020 Not Available [facility] [address], [place], [address], 04/24/2022 19:10:12 04/24/19 23 04/24/2022 urina lysis , dipst ick Unknown Analyte 1.025 Not Available [address], [place], [address], 04/24/2022 19:10:12 04/24/1904/24/2022 urina lysis , dipst ick Unknown Analyte Normal = Negati ve Not Available jina mac [address], [place], [address], 04/24/2022 19:10:12 04/24/19 23 04/24/2022 urina lysis , dipst ick Unknown Analyte Trace- intact Not Available jina mac [address], [place], [address], 04/24/2022 19:10:12 04/24/19 23 04/24/2022 urina lysis , dipst ick Unknown Analyte Normal = 6.5, 7.0, 7.5, 8.0 Not Available 2099jina mac [address], [place], [address], 04/24/2022 19:10:12 04/24/19 23 04/24/2022 urina lysis , dipst ick Unknown Analyte 6.5 Not Available [facility] [address], [place], [address], 04/24/2022 19:10:12 04/24/19 23 04/24/2022 urina lysis , dipst ick Unknown Analyte Normal = Negati ve Not Available jina [address], [place], [address], 04/24/2022 19:10:12 04/24/19 23 04/24/2022 urina lysis , dipst ick Unknown Analyte Trace Not Available [address], [place], [address], 04/24/2022 19:10:12 04/24/19 23 04/24/2022 urina lysis , dipst ick Unknown Analyte Normal = 0.2, 1.0 Not Available jina [address], [place], [address], 04/24/2022 19:10:12 04/24/19 23 04/24/2022 urina lysis , dipst ick Unknown Analyte 1.0 E.U./d L Not Available jina [address], [place], [address], 04/24/2022 19:10:12 04/24/19 23 04/24/2022 urina lysis , dipst ick Unknown Analyte Normal = Negati ve Not Available jina mac [address], [place], [address], 04/24/2022 19:10:12 04/24/19 23 04/24/2022 urina lysis , dipst ick Unknown Analyte Negati ve Not Available [address], [place], [address], 04/24/2022 19:10:12 04/24/1904/24/2022 urina lysis , dipst ick Unknown Analyte Normal = Negati ve Not Available [address] [place] [address], [place], [address], 04/24/2022 19:10:12 04/24/19 23 04/24/2022 urina lysis , dipst ick Unknown Analyte Negati ve Not Available [address] [place] [address], [place], [address], 04/24/2022 19:10:12 08/15/19 23 08/14/2022 rapid strep group A, throa t Unknown Analyte Normal = Negati ve Not Available [address] [place] [address], [place], [address], 08/14/2022 16:29:12 08/15/19 23 08/14/2022 rapid strep group A, throa t Unknown Analyte negati ve Not Available [address] [place] [address], [place], [address], 08/14/2022 16:29:12 Result Notes None recorded. Problems Name Problem SNOMED Code Status Onset Date Resolution Date Notes Provider Name and Address Organization Details Recorded Time Anxiety 23053358 Active 023 MIKO JORDAN null, [place] - [facility] 3 19:09:20 Depressive disorder 42796132 Active 023 MIKO JORDAN null, PA - [facility] 3 19:09:28 Insomnia 632510404 Active 023 MIKO JORDAN null, PA - [facility] 3 19:09:33 Migraine 21663385 Active 023 MIKO JORDAN null, [place] - [facility] 19:09:38 Problem Notes None recorded. Medical Equipment None Reported. Allergies No known drug allergies Medications Name Sig Start Date Stop Date Status Note LastModified by Organization Details LastModified Time buspirone 5 mg tablet TAKE 1 TABLET BY MOUTH THREE TIMES A DAY active Not Available Not Available No t Available azithromyci n 250 mg tablet TAKE 2 TABLETS BY MOUTH TODAY, THEN TAKE 1 TABLET DAILY FOR 4 DAYS 04/24 completed Not Available Not Available Not Available amitriptyli ne 75 mg tablet TAKE 1 TABLET BY MOUTH AT BEDTIME ORALLY ONCE A DAY 30 DAYS 04/24 completed Not Available Not Available Not Available phenazopyri dine 200 mg tablet PLEASE SEE ATTACHED FOR DETAILED DIRECTION S 04/24 completed Not Available Not Available Not Available famotidine 40 mg tablet TAKE 1 TABLET BY MOUTH EVERY DAY 04/24 completed Not Available Not Available Not Available prednisone 20 mg tablet Take 2 tablets every day by oral route in the morning for 5 days. 2022 active Not Available Not Available Not Avai lable rizatriptan 10 mg tablet PLEASE SEE ATTACHED FOR DETAILED DIRECTION S 04/24 completed Not Available Not Available Not Available clonazepam 1 mg tablet TAKE 1 TABLET BY MOUTH AT BEDTIME FOR 30 DAYS active Not Available Not Available No t Available ciprofloxac in 500 mg tablet TAKE 1 TABLET BY MOUTH TWICE A DAY 04/24 completed Not Available Not Available Not Available sulfamethox azole 800 mg-trimetho prim 160 mg tablet TAKE 1 TABLET BY MOUTH TWICE A DAY FOR 3 DAYS 04/24 completed Not Available Not Available Not Available ketorolac 10 mg tablet PLEASE SEE ATTACHED FOR DETAILED DIRECTION S 04/24 completed Not Available Not Available Not Available metoclopram treasure 5 mg tablet PLEASE SEE ATTACHED FOR DETAILED DIRECTION S 04/24 completed Not Available Not Available Not Available benzonatate 100 mg capsule Take 1 capsule 3 times a day by oral route for 5 days. 2022 active Not Available Not Available Not Avai lable pantoprazol e 40 mg tablet,nahed yed release TAKE 1 TABLET BY MOUTH EVERY DAY active Not Available Not Available No t Available Nortrel 1/35 (21) 1 mg-35 mcg tablet TAKE 1 TABLET BY MOUTH EVERY DAY active Not Available Not Available No t Available Banophen 25 mg capsule TAKE 1 CAPSULE BY MOUTH AT BEDTIME NEEDED FOR SLEEP 04/24 completed Not Available Not Available Not Available codeine 10 mg-guaifene sin 100 mg/5 mL oral liquid TAKE 5 ML ORALLY EVERY 6 HOURS NEEDED FOR ALLERGY SYMPTOMS NOT COVERED 04/24 completed Not Available Not Available Not Available zolpidem 5 mg tablet TAKE 1 TABLET BY MOUTH EVERY DAY AT BEDTIME FOR 30 DAYS 04/24 completed Not Available Not Available Not Available zolpidem 10 mg tablet TAKE 1 TABLET BY MOUTH AT BEDTIME NEEDED FOR INSOMNIA FOR 30 DAYS active Not Available Not Available No t Available ondansetron 4 mg disintegrat ing tablet active Not Available Not Available N ot Available fluticasone propionate 50 mcg/actuati on nasal spray,suspe nsion USE 1 SPRAY IN EACH NOSTRIL EVERY 12 HOURS 04/24 completed Not Available Not Available Not Available naratriptan 2.5 mg tablet PLEASE SEE ATTACHED FOR DETAILED DIRECTION S 04/24 completed Not Available Not Available Not Available bupropion HCl XL 150 mg 24 hr tablet, extended release TAKE 1 TABLET BY MOUTH EVERY DAY IN THE MORNING active Not Available Not Available No t Available cholecalcif radha (vitamin D3) 1,250 mcg (50,000 unit) capsule TAKE 1 TABLET BY MOUTH WEEKLY FOR 3 MONTHS active Not Available Not Available No t Available levocetiriz ine 5 mg tablet TAKE 1 TABLET BY MOUTH DAILY IN THE EVENING FOR ALLERGY SYMPTOMS active Not Available Not Available No t Available Alyacen 1/35 (28) 1 mg-35 mcg tablet TAKE 1 TABLET BY MOUTH EVERY DAY active Not Available Not Available No t Available Ajovy 225 mg/1.5 mL subcutaneou s auto-inject or 04/24 completed Not Available Not Available Not Available Vitals Date Recorded Body height Body mass index (BMI) Body weight Body temperature Respiratory rate Oxygen saturation Oxygen saturation in Arterial blood by Pulse oximetry Heart rate Systolic blood pressure Diastolic blood pressure Provider Name and Address Organization Details Last Updated DateTime 3 162.56 cm 19.7 kg/m2 57688.1 2 g 98.2 [degF] 16 /min 97 % 97 % 81 /min 109 mm[Hg] 78 mm[Hg] ARIES ADAMS PA - [facility] 3 16:28:32 Date Recorded Body height Body mass index (BMI) Body weight Pain severity - 0-10 verbal numeric rating [Score] - Reported Respiratory rate Oxygen saturation Oxygen saturation in Arterial blood by Pulse oximetry Heart rate Body temperature Systolic blood pressure Diastolic blood pressure Provider Name and Address Organization Details Last Updated DateTime 3 162.56 cm 25.7 kg/m2 21515.8 6 g 0 20 /min 99 % 99 % 76 /min 98.4 [degF] 132 mm[Hg] 80 mm[Hg] MIKO IRELAND [facility] 3 19:04:56 Social History Question Answer Notes LastModified by [employer] ion Details LastModified Time Tobacco Smoking Status Never Smoker [facility] 04/24/2022 19:10:01 What Is Your Level Of Alcohol Consumption? None [email or web address] Information not available 04/24/2022 Do You Use Any Illicit Or Recreational Drugs? No [email or web address] Information not available 04/24/2022 Have You Recently Traveled Abroad? No [email or web address] Information not available 04/24/2022 Do You Or Have You Ever Used Any Other Forms Of Tobacco Or Nicotine? No [email or web address] Information not available 04/24/2022 Sex: Unknown Functional Status None recorded. Mental Status None recorded. Family History Relationship Description Onset Age of this Age Resolved Age Notes LastModified by Organization Details LastModified Time Father No current problems or disability [email or web address] Not available 04/24 19:09:50 Mother No current problems or disability [email or web address] Not available 04/24 19:09:50 Medical History Condition Response Gout N Cancer, liver N Thyroid disorder N Hyperthyroidism N Rheumatoid arthritis N GI bleeding N Irritable bowel syndrome N Depression N COPD N Tinnitus, unspecified ear N Pneumonia N Cancer, uterus N Mental disorder, NOS N Headaches/Migraines N Insomia N Alzheimer's disease N Anxiety Disorder N Obesity N Arthritis N Cancer N Stroke N Alcohol abuse N Liver disease N Cancer, bladder N Allergy Food/Medication N Peripheral artery disease N Oxygen dependence N Fibromyalgia N Atrial fibrillation N Tinnitus, right ear N Kidney Disease N Deep vein thrombosis DVT leg N Migraine N Disorder of circulatory system N Anxiety N Cancer, brain N Disease of pancreas N Cancer, lung N Eating disorder, unspecified N Cancer, colon N Crohn's disease N Cancer, cervical N N Cancer, breast N Cancer, skin N Coagulation defect, unspecified N Cataract N Asthma N Congestive heart failure (CHF) N Substance Abuse N Vertigo N Coronary artery disease N Pulmonary Embolism N Cancer, pancreas N Tobacco use disorder N Disease of lung N Allergic rhinitis N Joint disorder, unspecified N Menopause N Drug dependence, unspecified N Back disorder N Hypothyroidism N Disorder kidney N Sickle Cell Anemia N Cancer, ovarian N Wu's Palsy N Disorder of eye N Cancer, prostate N Allergy Seasonal N Drug abuse N Disorder of urinary system N Disorder of lymph system N Radiculopathy, site unspecified N Myoneural disorder, unspecified N Nervous system disorder N ADHD N High Cholesterol N Post-herpetic neuralgia N Aneurysm, cerebral N Tinnitus, left ear N Prostate hypertrophy, benign N Disorder of skin/subcutaneous N Osteoarthritis N Disorder of ear N Ovarian cysts N Parkinson's disease N Low back pain N Carpal tunnel syndrome N Disorder of muscle N Anemia N Kidney stone N Bipolar affective disorder N Leukemia, unspecified N Diabetes N Endocrine disorder N Disorder involving the immune mechanism N Seizure N Hyperlipidemia N Lymphoma N Emphysema, unspecified N Eczema N Diverticulitis N Dementia N Lupus N Seizure disorder N Reflux/GERD N Sleep Apnea N Cancer, bone N Disorder of thyroid N Cardiac arrhythmia, unspecified N Disorder of bone N Heart Disease N Liver Disorder N Disorder of brain N Hypertension N Aneurysm, aortic N Osteoporosis N Gastroesophageal reflux (GERD) N Disease of digestive system, unspecified N Gynecological History Statement/Question Response Date of LMP 08/07/2022 Obstetrics History GPAL:G 0 P 0 0 0 0 Past Encounters Encounter ID Performer Location Encounter Start Date Encounter Closed Date Diagnosis/Indication Diagnosis SNOMED-CT Code Diagnosis ICD10 Code Diagnosis Note [id number] [facility] [address] [place] [address] 08/02/2017 14:11:03 08/02/2017 15:47:48 [id number] [facility] [address] [place] [address] 11/28/2017 14:03:54 11/28/2017 15:07:52 [id number] [facility] [address] [place] [address] 06/08/2018 20:09:49 06/08/2018 20:27:16 [id number] [facility] [address] [facility] [place] [address] 11/25/2018 13:37:21 11/25/2018 14:11:43 [id number] [facility] [address] [place] [address] 04/13/2016 15:28:35 04/13/2016 15:58:09 [id number] [facility] [address] [facility] [place] [address] 07/09/2019 14:03:54 07/09/2019 14:26:53 [id number] [facility] [address] [facility] [place] [address] 06/14/2016 11:49:13 06/14/2016 13:04:06 [id number] [facility] [address] [facility] [place] [address] 12/10/2018 18:36:46 12/10/2018 19:37:40 [id number] [address] [address] [place] [address] 11/26/2017 10:23:04 11/26/2017 11:27:01 [id number] [facility] [address] [facility] [place] [address] 11/01/2016 14:26:42 11/01/2016 15:28:03 [id number] [facility] [address] [place] [address] 03/25/2021 15:54:29 03/25/2021 18:50:14 [id number] [facility] [address] [place] [address] 04/06/2017 17:46:58 04/06/2017 18:35:42 [id number] [facility] [address] [facility] [place] [address] 01/15/2019 08:20:12 01/15/2019 09:34:19 [id number] Ryne Irving NP [facility] [address] [place] [address] 04/24/2022 18:50:06 04/24/2022 19:36:32 Acute sinusitis 44616642 J01.90 Mild dehydration 8939875 119 108 E86.0 [id number] Isabella Sepulveda MD [address] [address] [place] [address] 08/14/2022 15:22:24 08/14/2022 17:06:48 Acute laryngitis 6724210 J04.0 Please follow up with PCP or Urgent Care in 3-5 days if no improvemen t or if any new symptoms occur that are concerning . Upper resp iratory infection 10806494 J06.9 Please follow up with PCP or Urgent Care in 3-5 days if no improvemen t or if any new symptoms occur that are concerning .Call 911 or go to nearest ER if you develop any shortness of breath, chest pain, severe headache, dizziness, or other concerning symptoms Health Concerns Section Related Observation LastModified by Organization Detai ls LastModified Time None Recorded Concern Status LastModified by Organization Details LastModified Time None Recorded Advance Directives Directive None Recorded Payers Encounter Date Sequence Insurance Name Policy Number Policy Leiva Covered Member ID Leiva Member ID Guarantor Name 07/09/2019 1 [facility] PL[facility] (MEDICAID HMO) [facility] Haleema Majid [id number] Haleema Majid 03/25/2021 1 [facility] [employer] (MED[place]ID HMO) [place] Hale[place] Majid [id number] Haleema Majid 04/24/2022 1 [facility] PLAN (MEDICAID HMO) [place] Haleema Majid [id number] Haleema Majid 08/14/2022 1 [facility] PLAN (MEDICAID HMO) [place] Haleema Majid [id number] Haleema Majid Notes Date Note Type Note Provider Name and Address Organization Details Recorded Time text/html CongestionReported bypatient.Notes:nasal congestion with post nasal drip x 3 days. denies any fever or fever with chills. no SOB or respiratory distress. Ryne Irving NP [address] [place], [address], [employer], [employer] 04/24/2022 19:36:41 3 text/html Sore throatReported bypatient.Source of patient informationInformation obtained from patient Location:throat Severity:moderate Quality:hurts to swallow Onset/Timin days Associated Symptoms:hoarseness;nasal congestion;coughing Context:no sick contacts; no foreign travel; non-smoker Isabella Sepulveda MD [address] [place], [place] [address], [address], [facility] 08/14/2022 17:46:39 OBGyn Episode No OBEpisode recorded.
== END 2024-05-13 10:51 | disposition home or self-care (01) ==
LOC: HO.HMGCX 10:50
PROVIDERS: PCP Internal Medicine; Visit Provider Physician Assistant
DX: M25.511 Pain in right shoulder (principal)
CPT/HCPCS: 73030; 99212

== ENCOUNTER → 2024-05-13 11:23 | Outpatient (BNV) | payer OTHER, SELFPAY | PROVIDERS: PCP Internal Medicine; Visit Provider Radiology Diagnostic Radiology | DX: M25.511 Pain in right shoulder (principal) | CPT/HCPCS: 73030 ==

== ENCOUNTER 2024-05-21 09:13 | Outpatient (REF) | payer OTHER, SELFPAY ==
[2024-05-21 10:10] LABS: MANUAL DIFF FLAG NO
[2024-05-21 10:31] LABS: Basophils Percent Auto 0.4 % (0-2); Eosinophils Absolute Auto 0.1 X10*3/uL (0.0-0.4); Eosinophils Percent Auto 1.4 % (0-4); Hematocrit 39.9 % (37.0-47.0); Hemoglobin 12.9 g/dl (12.0-16.0); Imm Gran Abs Auto 0.03 X10*3/uL (0.00-0.03); Imm Gran Pct Auto 0.3 % (0.0-0.4); Lymphocytes Absolute Auto 2.8 X10*3/uL (1.2-4.9); Lymphocytes Percent Auto 31.2 % (20-40); Mean Corpuscular HGB Conc 32.3 g/dl (31.0-35.0); Mean Corpuscular Hemoglobin 27.7 pg (27.0-33.0); Mean Corpuscular Volume 85.6 fL (80.0-98.0); Mean Platelet Volume 9.9 fL (9.4-12.3); Monocytes Absolute Auto 0.4 X10*3/uL (0.1-1.2); Monocytes Percent Auto 4.7 % (2-11); Neutrophils Absolute Auto 5.6 x10*3/uL (2.0-8.3); Platelet Count 336 X10*3/uL (160-400); Red Blood Count 4.66 X10*6/uL (4.20-5.50); Red Cell Distribution Width 12.9 % (11.0-16.0)
[2024-05-21 11:58] LABS: Alanine Aminotransferase 13 U/L (0-31); Alkaline Phosphatase 49 U/L (39-117); Anion Gap 10 (12-20); Aspartate Amino Transferase 15 U/L (5-31); Bilirubin Total 0.4 mg/dL (0.0-1.0); Blood Urea Nitrogen 19 mg/dL (9-16); Calcium 9.3 mg/dL (8.4-10.2); Carbon Dioxide 26 mmol/L (22-29); Chloride 109 mmol/L (96-108); Cholesterol 158 mg/dL (<200); Estimated Glomerular Filt Rate > 60; Glucose Fasting 73 mg/dL (60-99); HDL Cholesterol 52 mg/dL (>40); LDL Cholesterol Calculated 85 mg/dL (<100); Potassium 4.7 mmol/L (3.3-5.1); Sodium 140 mmol/L (135-145); TSH reflex Free T4 2.07 uIU/mL (0.32-4.0); Total Protein 7.4 g/dL (6.5-8.0); Triglycerides 105 mg/dL (<150)
[2024-05-21 12:08] LABS: Folate 4.2 ng/mL (> or = 4.0); Vitamin B12 256 pg/mL (200-900)
[2024-05-22 21:04] LABS: Thyroid Peroxidase Antibodies 1 IU/mL (<9)
== END 2024-05-21 09:14 | disposition home or self-care (01) ==
LOC: HO.HMGCLDS 09:13
PROVIDERS: PCP Internal Medicine; Visit Provider Internal Medicine
DX: R63.4 Abnormal weight loss (principal); R55 Syncope and collapse; F32.A Depression, unspecified; E55.9 Vitamin D deficiency, unspecified; F51.01 Primary insomnia; G43.109 Migraine with aura, not intractable, without status migrainosus; R12 Heartburn; Z83.49 Family history of other endocrine, nutritional and metabolic diseases
CPT/HCPCS: 36415; 80053; 80061; 82306; 82607; 82746; 84443; 85025; 86376

== ENCOUNTER 2024-05-22 10:43 | Outpatient (AMB) | payer OTHER, SELFPAY ==
--- NOTE | 2024-05-22 11:07 | A.OFFPC_ITS ---
Vital Signs 05/22/24 11:18 Height 5 ft 3 in Weight 124 lb BMI 22.0 BP 90/62 Blood Pressure Location Rt brachial Position Sitting Respiration 16 Pulse 69 Pulse Source Pulse Oximeter Temp 98.5 F Temp Source Oral Pulse Oximetry (%) 98 Oxygen Delivery Method Room Air Intake Visit Reasons: F/U -WI visit Intake Note: Pt is here today to f/u WI for her RT shoulder pain Allergies eptinezumab-jjmr Allergy (Severe, Verified 05/22/24 11:44) throat swelling Penicillins [PENICILLINS] Allergy (Mild, Verified 05/22/24 11:44) RASH amoxicillin [From AUGMENTIN] Allergy (Unknown, Verified 05/22/24 11:44) RASH clavulanic acid [From AUGMENTIN] Allergy (Unknown, Verified 05/22/24 11:44) RASH Pork/Porcine Containing Products [PORK/PORCINE CONTAINING PRODUCTS] Adverse Reaction (Unknown, Verified 05/22/24 11:44) confucianism reasons Medication List - Last Reconciled 05/22/24 by Мария Rodriguez MD albuterol sulfate 90 mcg/actuation (Ventolin HFA) 1 inh inhalation QID PRN atogepant 60 mg PO DAILY 30 days blood-glucose meter (Advanced Glucose Meter) As directed clonazepam 1 - 2 mg (1 - 2 x 1 mg) PO BEDTIME 30 days epinephrine 0.3 mg (0.3 mL) IM Q15M PRN 7 days magnesium oxide 400 mg PO BEDTIME 30 days norethindrone-ethin estradiol 1-35 mg-mcg 1 tab PO DAILY ondansetron 4 mg PO Q8H PRN propranolol 10 mg PO BID PRN 90 days zolpidem 10 mg PO BEDTIME 30 days Tobacco use date assessed: 05/22/24 Dental Screening Dental Screen Date: 05/22/24 Did you have a dental visit in the last 12 months?: Yes Did you have a dental problem in the last 6 months where you did not have access to dental care?: No Was dental information given to patient?: Patient has dentist HPI F/U -WI visit HPI Details 28-year-old female with a past medical h istory of postural tachycardic syndrome presenting for evaluation of right shoulder pain. Patient states that she is currently fasting from sunrise to sunset as it is Ramadan. Patient states secondary to fasting and her postural tachycardia syndrome, she feels significantly more lightheaded during this time. On Sunday, the patient was walking up the stairs with a laundry basket in her hand when she had a brief syncopal episode falling onto her right side. Patient is complaining of pain in her right shoulder that radiates to her neck, which is starting to improve after taking [id number] NSAIDs. She also has had on unintentional 10 lb weight loss since September,. Denies any chest pain, no weakness. She does say that she has not been eating as much as she has been in the past Also has been having frequent nasal congestion runny nose, postnasal drainage which has not been relieved with taking antihistamines over-the-c ounter. Requesting a referral to an snowblower mechanic for further evaluation management. [facility] Medical History (Updated 05/25/24 @ 14:38 by Мария Rodriguez MD) POTS (postural orthostatic tachycardia syndrome) Environmental and seasonal allergies Allergic rhinitis Weight loss, unintentional Vitamin D deficiency Family history of hyperthyroidism Chronic heartburn Fatigue Pseudoseizures Surgical History Hx of appendectomy Family History Father Epilepsy Hypertension Diabetes Mental health disorder Mother Hyperthyroidism Sister Hyperthyroidism Social History Housing: House Alcohol intake: never Patient Tobacco Use Status: Never used Tobacco e-Cigarette/Vaping Use: Never Used Current occupational status: employed Cognitive needs: No Hearing needs: No Vision needs: Yes Questionnaire PHQ-9 Over the last 2 weeks, how often have you been bothered by any of the following problems? 1. Little interest or pleasure in doing things: not at all 2. Feeling down, depressed, or hopeless: not at all 3. Trouble falling or staying asleep, or sleeping too much: several days 4. Feeling tired or having little energy: more than half the days 5. Poor appetite or overeating: several days 6. Feeling bad about yourself - or that you are a failure or have let yourself or your family down: not at all 7. Trouble concentrating on things, such as reading the newspaper or watching television: not at all 8. Moving or speaking so slowly that other people could have noticed. Or the opposite - being so fidgety or restless that you have been moving around a lot more than usual: not at all 9. Thoughts that you would be better off or of hurting yourself in some way: not at all Total score: 4 Depression Screening Interpretation: Negative Depression Screening Done: Yes 46494 - PHQ-9 Billing: Yes Source: Developed by Drs. Coy Gabriel, Patricia Ceja, Mahin Huang and colleagues, with an educational nishi from [employer]. Thrive Questionnaire Date Thrive assessed: 04/11/23 I am a: Patient What is your living situation today?: I have a steady place to live Within the past 12 months, did the food you bought not last and you didn't have the money to get more?: I choose not to answer this question Within the past 12 months, did you worry whether your food would run out before you got money to buy more?: Never true Do you have trouble paying for medicines?: No Do you have trouble getting transportation to medical appointments?: No Do you have trouble paying your heating and electricity bill?: No Do you have trouble taking care of your child, family member or friend?: No Do you have trouble with day-to-day activities such as bathing, preparing meals, shopping, managing finances, etc.?: No Are you currently unemployed and looking for a job?: No Are you interested in more education?: Yes Please select the resources that you would like help with: None Currently or been in a relationship where the following occur: No concerns reported THRIVE Score: 0 AUDIT C Alcohol Use Questionnaire (AUDIT-C) 1. How often do you have a drink containing alcohol?: Never Total Score: 0 AXEL-7 AMB Questionnaire AXEL-7 Date AXEL - 7 assessed: 04/11/23 Feeling nervous, anxious, or on edge: 3 = Nearly every day Not being able to stop or control worryin = Nearly every day Worrying too much about different things: 3 = Nearly every day Trouble relaxin = Nearly every day Being so restless that it is hard to sit still: 2 = More than half the days Becoming easily annoyed or irritable: 2 = More than half the days Feeling afraid as if something awful might happen: 2 = More than half the days Total AXEL-7 score (0-4 normal; 5-9 mild; 10-14 moderate; 15-21 severe): 18 Source: Developed by Drs. Coy Gabriel, Patricia Ceja, Mahin Huang and colleagues, with an educational nishi from [employer]. Review of Systems Const All systems reviewed & are unremarkable except as noted in HPI and below Reports no additional complaints and Reports weight loss (10lb past six months) Eyes Reports no additional complaints ENT Reports as per HPI, Denies hoarseness, Denies sinus pain and Denies sore throat Card Reports no additional complaints Resp Reports no additional complaints GI Reports no additional complaints Reports no additional complaints Musc Reports as per HPI Skin/Breast Reports system reviewed and no additional complaints, except as documented Neuro Reports no additional complaints Psych Reports no additional complaints Endo Reports no additional complaints Kendall/Lymph Reports no additional complaints Aller/Immun Reports no additional complaints Physical exam (Primary Care) Vital Signs: Last Vital Signs Temp 98.5 F 05/22/24 11:18 Pulse 69 05/22/24 11:18 Resp 16 05/22/24 11:18 BP 90/62 05/22/24 11:18 Pulse Ox 98 05/22/24 11:18 Oxygen Delivery Method Room Air 05/22/24 11:18 BMI result Body Mass Index 22.0 Tobacco/Smoking Status: Tobacco use Status Tobacco use date assessed 05/22/24 05/22/24 11:23 Patient Tobacco Use Status Never used Tobacco 05/22/24 11:07 e-Cigarette/Vaping Use Never Used 05/22/24 11:07 PHQ-9: PHQ-9 Score PHQ-9: Total score 4 05/25/24 14:32 Depression Screening Interpretation: Negative Thrive Assessment: Date of Thrive Assessment Date Thrive assessed 04/11/23 05/22/24 11:07 Currently or been in a relationship where the following occur: No concerns reported Const Other: Alert oriented x3, no acute cardiorespiratory distress noted, ambulatory with normal gait Orientation/consciousness: patient oriented x3 HENMT Head: Yes normocephalic Ears: external ears normal, TM's normal bilaterally and EAC's normal General nose exam: Normal external nose present and No nasal discharge present Face and sinus: Yes face symmetric Mouth: Normal oral and palatal mucosa present and moist mucous membranes Eyes General: appearance normal, both eyes and all related structures Neck Neck: Yes full ROM, Yes no lymphadenopathy and Yes supple Thyroid: Thyroid normal Resp Auscultation: clear to auscultation bilaterally Cardio Other: S1-S2 present regular rate and rhythm GI Palpation (GI): Soft to palpation, nontender, no guarding and no masses Auscultation: normal bowel sounds Other: Followed by OBGYN at [place] General: Yes no CVA tenderness and Yes deferred Back/Spine/Pelvis Back: no CVA tenderness and No back tenderness Skin General skin exam: no rashes or lesions noted Neuro General: patient oriented x3, gait normal, moves all extremities, Normal light touch and pain sensation, no focal motor deficits and CN's II-XI intact bilaterally Extrem General: Yes full ROM, Yes no joint enlargement, Yes no clubbing, cyanosis or edema, Yes no calf tenderness and Yes normal gait Psych Appearance: grossly normal and well kempt Mental Status: mental status grossly normal Speech and movement: Normal speech and movement present Affect: normal affect Attitude: cooperative Thought process: Normal thought process present Thought content: Normal thought content present Results Reviewed Results Reviewed: Name: Juany Julian Age/Sex: 28/F : 1995 Unit#: [id number] Attend Dr: Мария Rodriguez MD Re05/21/24 Status: DEP REF Location: [facility] Disch: SPEC : [id number] YASMINE: 05/21/24 STATUS: COMP REQ : [id number] RECD: 05/21/[address]: Мария Rodriguez MD COMP: 05/21/24 ENTERED: 05/21/[address]: ORDERED: CBC Auto Diff Test Result Flag Reference WBC 9.0 4.8-10.8 X10*3/uL RBC 4.66 4.20-5.50 X10*6/uL HGB 12.9 12.0-16.0 g/dl HCT 39.9 37.0-47.0 % MCV 85.6 80.0-98.0 fL MCH 27.7 27.0-33.0 pg MCHC 32.3 31.0-35.0 g/dl RDW 12.9 11.0-16.0 % PLT 336 160-400 X10*3/uL MPV 9.9 9.4-12.3 fL Neut Pct Auto 62.0 45-73 % ImGran Pct Auto 0.3 0.0-0.4 % Lymp Pct Auto 31.2 20-40 % Appling Pct Auto 4.7 2-11 % Eos Pct Auto 1.4 0-4 % Baso Pct Auto 0.4 0-2 % NRBC Pct Auto 0.0 0.0-0.2 /100WBC ANC Neut Abs # 5.6 2.0-8.3 x10*3/uL ImGran Abs Auto 0.03 0.00-0.03 X10*3/uL Lymph Abs Auto 2.8 1.2-4.9 X10*3/uL Appling Abs Auto 0.4 0.1-1.2 X10*3/uL Eos Abs Auto 0.1 0.0-0.4 X10*3/uL Baso Abs Auto 0.0 0.0-0.2 X10*3/uL NRBC Abs Auto 0.000 0.0-0.012 X10*3/uL Name: Juany Julian Age/Sex: 28/F : 1995 Unit#: [id number] Attend Dr: Мария Rodriguez MD Re05/21/24 Status: DEP REF Location: [facility] Disch: SPEC : [id number] YASMINE: 05/21/24 STATUS: COMP REQ : [id number] RECD: 05/21/241006 SUBM DR: Мария Rodriguez MD COMP: 05/21/24 ENTERED: 05/21/[address]: ORDERED: CMP Fast, Lipid Panel, Vitamin D 25-OH, TSH Rflx Test Result Flag Reference Sodium 140 135-145 mmol/L Potassium 4.7 # 3.3-5.1 mmol/L CL 109 H 96-108 mmol/L CO2 26 22-29 mmol/L Gap 10 L 12-20 BUN 19 H 9-16 mg/dL Creat 0.70 0.5-1.4 mg/dL eGFR > 60 Chronic Kidney Disease: Estimated GFR < 60 mL/min/1.73m2 Severe Kidney Disease: Estimated GFR < 15 mL/min/1.73m2 FBS 73 60-99 mg/dL CA 9.3 8.4-10.2 mg/dL Total Bili 0.4 0.0-1.0 mg/dL AST (GOT) 15 5-31 U/L ALT (GPT) 13 0-31 U/L Protein, Total 7.4 6.5-8.0 g/dL Alb 4.0 3.5-5.0 g/dL Triglyceride 105 <150 mg/dL Desirable Triglyceride: less than 150 mg/dL Borderline High Triglyceride 150-199 mg/dL High Triglyceride: 200-499 mg/dL Very High Triglyceride: greater than or equal to 5OO mg/dL Cholesterol 158 <200 mg/dL Desirable Cholesterol: less than 200 mg/dL Borderline High Cholesterol: 200-239 mg/dL High Cholesterol: greater than 239 mg/dL LDL Calculated 85 <100 mg/dL Desirable LDL: less than 100 mg/dL Near Optimal/Above Optimal LDL: 110-129 mg/dL Borderline High LDL: 130-159 mg/dL High LDL: 160-189 mg/dL Very High LDL: greater than or equal to 190 mg/dL HDL 52 >40 mg/dL Desirable HDL: greater than 40 mg/dL Note: This HDL assay may give artificially low results in patients with liver disease. Alk Phos 49 39-117 U/L Vitamin D 25-OH 30.0 >30 ng/mL Health Based Reference Values* < 20 ng/mL Deficient 20-30 ng/mL Insufficient > 30 ng/mL Sufficient *Keagan SNYDER. N Engl J Med. 2007;357:266-280 There is no well-established upper level of normal vitamin D levels. Some laboratories use 50 ng/mL as an upper limit of normal. However, toxicity is patient-dependent and may occur at any level. Careful correlation with the patient's presentation is necessary and, if there is concern for vitamin D toxicity, treatment should be considered irrespective of the serum level. Care must be taken in interpreting Vitamin D results from different laboratories and methodologies. Published data demonstrated that results from patients undergoing hemodialysis may show a negative bias when tested with various automated 25-OH vitamin D assays when compared to LC-MS/MS. When testing samples from patients whose predominant form of Vitamin D is Vitamin D2, such as patients receiving Vitamin D2 supplementation, results that are subtherapeutic should be confirmed with another method such as LC-MS/MS. TSH 2.07 0.32-4.0 uIU/mL Coding Level of Care Code Est Pt Level 4 (96069) Complex EM visit Add On G2211 Diagnoses Environmental and seasonal allergies J30.89 Pain of right shoulder after trauma M25.511 Unintentional weight loss of less than 10% body weight within 6 months R63.4 Additional Codes PHQ-9 - 27572 - PHQ-9 Billing: Yes ([id number]) Assessment & Plan Assessment & Plan (1) Environmental and seasonal allergies: Code(s): J30.89 - Other allergic rhinitis Category: Medical Plan: [facility], trial of azelastine-fluticasone nasal spray to use as directed (2) Pain of right shoulder after trauma: Comment: No acute findings noted on imaging. Code(s): M25.511 - Pain in right shoulder Category: Medical Plan: pain is resolving, continue with current conservative measures (3) Unintentional weight loss of less than 10% body weight within 6 months: Code(s): R63.4 - Abnormal weight loss Plan: Has had a weight loss of less than 10 lb in the last six-months. Reviewed recent fasting labs done which showed normal fasting glucose electrolytes renal function liver enzymes and has normal total protein and albumin levels, normal thyroid lipids and fasting glucose and normal CBC. Patient does admit to not eating much doing this past few months, advised to eat a healthy diet, will monitor weight Orders: Referrals Allergy & Immunology Referral J30.89 - Other allergic rhinitis Medications: New azelastine-fluticasone 137-50 mcg/spray administer into each nostril 1 spray intranasal BID 23 grams 1RF J30.9 - Allergic rhinitis, unspecified
[2024-05-22 11:18] VITALS: BP 90/62; PULSE 69; RESP 16; TEMP 36.9; O2SAT 98; BMI 22.0
== END 2024-05-22 12:28 | disposition home or self-care (01) ==
LOC: HO.HMCC 10:44
PROVIDERS: PCP Internal Medicine; Visit Provider Internal Medicine
DX: J30.89 Other allergic rhinitis (principal); M25.511 Pain in right shoulder; R63.4 Abnormal weight loss

== ENCOUNTER → 2024-05-22 10:43 | Outpatient (BNVA) | payer OTHER, SELFPAY | PROVIDERS: PCP Internal Medicine; Visit Provider Internal Medicine | DX: J30.89 Other allergic rhinitis (principal); M25.511 Pain in right shoulder; R63.4 Abnormal weight loss | CPT/HCPCS: 96127; 99212 ==

== ENCOUNTER 2024-11-05 14:12 | Outpatient (REF) | payer OTHER, SELFPAY ==
[2024-11-06 09:29] LABS: Chlamydia pneumoniae PCR Not Detected (Not Detect.); Coronavirus 229E PCR Not Detected (Not Detect.); Coronavirus HKU1 PCR Not Detected (Not Detect.); Coronavirus NL63 PCR Not Detected (Not Detect.); Coronavirus OC43 PCR Not Detected (Not Detect.); RSV PCR Not Detected (Not Detect.); Rhino/Enterovirus PCR Detected (Not Detect.)
[2024-11-06 09:48] LABS: Influenza A H1 PCR Not Detected (Not Detect.); Influenza A H1-2009 PCR Not Detected (Not Detect.); Influenza A H3 PCR Not Detected (Not Detect.); SARS-CoV-2 PCR Not Detected (Not Detect.)
== END 2024-11-05 14:13 | disposition home or self-care (01) ==
LOC: HO.LAB 14:12
PROVIDERS: PCP Internal Medicine; Visit Provider Physician Assistant
DX: J06.9 Acute upper respiratory infection, unspecified (principal); J02.9 Acute pharyngitis, unspecified
CPT/HCPCS: 87633; 87880; 99212

== ENCOUNTER 2024-11-05 14:12 | Outpatient (AMB) | payer OTHER, SELFPAY ==
[2024-11-05 14:20] VITALS: BP 94/62; PULSE 82; TEMP 37.3; O2SAT 100; BMI 22.8
--- NOTE | 2024-11-05 14:20 | AM.OFFWIN_ITS ---
Intake Vital Signs 11/05/24 14:20 Height 5 ft 3 in Weight 129 lb BMI 22.8 BP 94/62 Blood Pressure Location Lt brachial Position Sitting Pulse 82 Pulse Source Pulse Oximeter Temp 99.2 F Temp Source Oral Pulse Oximetry (%) 100 Oxygen Delivery Method Room Air Intake Visit Reasons: EP-sore throat, stuffy nose, body ache, headaches Intake Note: pt presents with sore throat with pain swallowing, vomiting yesterday, sinus congestion, body ache/chills, headache for 2 days Patient Tobacco Use Status: Never used Tobacco Allergies eptinezumab-jjmr Allergy (Severe, Verified 11/05/24 14:22) throat swelling Penicillins (PENICILLINS) Allergy (Mild, Verified 11/05/24 14:22) RASH amoxicillin (From AUGMENTIN) Allergy (Unknown, Verified 11/05/24 14:22) RASH clavulanic acid (From AUGMENTIN) Allergy (Unknown, Verified 11/05/24 14:22) RASH Pork/Porcine Containing Products (PORK/PORCINE CONTAINING PRODUCTS) Adverse Reaction (Unknown, Verified 11/05/24 14:22) gnosticism reasons Do you need a note to return to daycare/school/sports/work: No HPI HPI Comments History of Present Illness Details History - The patient is a 29-year-old female pr esenting with symptoms of a sore throat, nasal congestion, headache, chills, body aches, and cough for 3 days, getting worse. - The sore throat is severe, impacting h er ability to swallow. - She reports nasal congestion and a pro ductive cough. - She experiences headaches, chills, and body aches. - No history of COPD or asthma, and no s hortness of breath or wheezing reported. - She has taken Advil and Tylenol for sy mptom relief. Physical Exam General: Cooperative, healthy appearing, comfortable and no acute distress Orientation/consciousness: Patient oriented x3 Limitations: No limitations Head: Normal to inspection Ears: Hearing grossly normal bilaterally, external ears red, TMs with erythema but no infection Nose: Normal external nose present, Normal nares present and No nasal discharge present Face and sinus: Normal facial exam and frontal sinuses tender Mouth: Normal oral and palatal mucosa present and moist mucous membranes Throat: Yes tonsils normal, Yes uvula midline. Posterior oropharynx erythema, no exudates Eyes: Appearance normal, both eyes and all related structures Neck: Normal visual inspection, full ROM Respiratory: Clear to auscultation bilaterally. Normal respiratory effort, able to speak in complete sentences, no respiratory distress, not tachypneic, no tripod positioning and no use of accessory muscles Cardiovascular: Regular rate and rhythm. Normal S1 and S2 Skin: No rashes or lesions noted Neuro: Patient oriented x3 Extremities: Normal to inspection and Yes no clubbing, cyanosis or edema PFSH Medical History (Updated 11/05/24 @ 14:59 by Janice Ventura PA-C) POTS (postural orthostatic tachycardia syndrome) Environmental and seasonal allergies Allergic rhinitis Weight loss, unintentional Vitamin D deficiency Family history of hyperthyroidism Chronic heartburn Fatigue Pseudoseizures Surgical History Hx of appendectomy Family History Father Epilepsy Hypertension Diabetes Mental health disorder Mother Hyperthyroidism Sister Hyperthyroidism Social History Housing: House Alcohol intake: never Patient Tobacco Use Status: Never used Tobacco e-Cigarette/Vaping Use: Never Used Current occupational status: employed Cognitive needs: No Hearing needs: No Vision needs: Yes Review of Systems Const All systems reviewed & are unremarkable except as noted in HPI and below Physical Exam Vital Signs: Last Vital Signs Temp 99.2 F 11/05/24 14:20 Pulse 82 11/05/24 14:20 BP 94/62 11/05/24 14:20 Pulse Ox 100 11/05/24 14:20 Oxygen Delivery Method Room Air 11/05/24 14:20 BMI result Body Mass Index 22.8 Results AMB Rapid Strep AMB Rapid Strep Negative Last Edit by Anjel Hager CMA on 11/05/24 15 :04 Results Reviewed Results Reviewed: Laboratory Last Values Strep Scn Rapid Clinic Negative 11/05/24 14:21 Assessment & Plan Assessment & Plan (1) URI, acute: Code(s): J06.9 - Acute upper respiratory infection, unspecified Plan: Plan Patient was informed and verbally consented to the use of an ambient scribe for clinic note documentation during this visit. Viral sinusitis - VSS, pt well appearing and PE remarkable for sinus tenderness - Rapid strep is negative. - A respiratory panel was ordered to confirm viral infection causing sinusitis. - Prednisone 20 mg daily for five days was prescribed to alleviate symptoms. - Recommended the use of a neti pot with distilled water and Flonase to manage sinus symptoms. - Symptomatic treatment with Advil and Tylenol was advised. - Suggested the use of decongestants and antihistamines for symptom relief. Orders: Orders AMB Rapid Strep Screen Today Z13.9 - Encounter for screening, unspecified Resp Pathogen Panel - [facility] [place] Today J06.9 - Acute upper respiratory infection, unspecified Medications: New prednisone 20 mg PO QAM 5 tabs 0RF Coding Level of Care Code Est Pt Level 3 (73353) Diagnoses URI, acute J06.9
--- OUTSIDE RECORDS SUMMARY | 2024-11-05 17:28 | XMS_ITS | Encounter Summary ---
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
--- OUTSIDE RECORDS SUMMARY | 2024-11-05 17:28 | XMS_ITS | Clinical Summary ---
Author Organization [employer] Address [address] [place] [address] Care Team Providers Care Piercing Mill Operator Name Role Phone Unavailable Primary Care Provider Unavailabl e Allergies Active Allergy Reactions Criticality Noted Date Comments Amoxicillin-Pot Clavulanate 12/20/19 24 Penicillins 05/22/2024 Pork Allergy 05/22/2024 no pork- hindu reasons Medications clonazePAM (KlonoPIN) 1 MG tablet Take 1 tablet by mouth at bedtime. 12/20/19 16 Active Alyacen 1/35 1-35 MG-MCG tablet Take 1 tablet by mouth Once per day. Active zolpidem CR (Ambien CR) 6.25 MG ER tablet Take 6.25 mg by mouth if needed at bedtime for sleep. Do not crush, chew, or split. Active Qulipta 60 MG tablet Active Dymista 137-50 MCG/ACT suspension 05/23/19 25 Active magnesium oxide (Mag-Ox) 400 (240 Mg) MG tablet TAKE 1 TABLET BY MOUTH AT BEDTIME FOR 30 DAYS MAY HOLD FOR LOOSE STOOLS 04/28/19 25 Active naproxen (Naprosyn) 500 MG tablet Take 1 tablet by mouth 2 times daily. 05/14/19 25 Active ondansetron ODT (Zofran-ODT) 4 MG disintegrating tablet Active propranolol (Inderal) 10 MG tablet TAKE 1 TABLET BY MOUTH 2 TIMES A DAY NEEDED FOR TACHYCARDIA AND ANXIETY FOR 90 DAYS 03/18/19 25 Active clonazePAM (KlonoPIN) 0.5 MG tablet Take 0.5 mg by mouth. 02/09/20 17 Active Norethindrone-Eth Estradiol (ALYACEN 1/35 PO) Active zolpidem (Ambien) 10 MG tablet TAKE 1 TABLET ORALLY BEDTIME FOR 30 DAYS Active azithromycin (Zithromax) 250 MG tablet Take (2) tabs 1st day; take (1) tab next 4 days. 6 tablet 05/23/19 25 Active azithromycin (Zithromax) 250 MG tablet Take (2) tabs 1st day; take (1) tab next 4 days. 6 tablet 06/03/19 25 Active Trudhesa 0.725 MG/ACT aerosol solution 07/23/19 Active famotidine (Pepcid) 20 MG tablet Take 1 tablet by mouth Once per day. 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 Menorrhagia 07/07/2014 Encounters Date Type Department Care Team Description 08/08/2024 9:00 AM EDT Office Visit [facility] [address] [place] [address] Markel Aceves Dental calculus (Primary Dx) from Last 3 Months Social History Tobacco Use Types Packs/Day Years [...] Sign Reading Time Taken Comments Blood Pressure 130/70 08/08/2024 9:18 AM EDT Pulse 67 08/08/2024 9:18 AM EDT Temperature - - Respiratory Rate - - Oxygen Saturation - - Inhaled Oxygen Concentration - - Weight - - Height - - Body Mass Index - - Plan of Treatment Health Maintenance Due Date Last Done Comments Depression Screening 1996 HIV Screening 1996 SDOH Screening 1996 Disability Screening 1996 Alcohol/Substance Use Screening 2008 Family Planning (PISQ) 08/22/2011 HPV Vaccines (1 - 3-dose series) 08/22/2011 Hepatitis A Vaccines (2 of 2 - 2-dose series) 04/25/2013 10/25/2012 Hepatitis C Screening 2014 Pap Smear 2017 Dental Oral Exam 01/07/2022 07/06/2021, , 10/15/2013 DTaP/Tdap/Td Vaccines (8 - Td or Tdap) 09/30/2024 09/30/2014, 10/25/2012, 08/20/2001, Additional history exists COVID-19 Vaccine ( season) 2024 03/04/2021, 03/23/2020, 02/24/2020 Influenza Vaccine (#1) 2024 , 11/09/2020, 11/02/2019, Additional history exists Dental Prophylaxis 02/08/2025 08/08/2024, 0 07/06/2021, 11/22/2015, Additional history exists Tobacco Screening 08/08/2025 08/08/2024 Dental X-Ray: Bitewings 08/09/2025 08/09/19 25, 05/22/2024, 12/20/2023, Additional history exists Dental X-Ray: Full Mouth 12/20/2026 024, 07/06/2021, 11/12/2013 Zoster Vaccines (1 of 2) 2046 RSV Patients and Patients Aged 60 years or older (1 - 1-dose 75+ series) 08/22/2071 HIB Vaccines Completed 08/20/2001, 01/26, 1996, Additional history exists Hepatitis B Vaccines Completed 10/25/2012, 08/20/2001, 02/13/1998, Additional history exists IPV Vaccines Completed 10/25/2012, 07/28, 02/13/1998, Additional history exists Meningococcal Vaccine Completed 10/01/2014, 015 Meningococcal B Vaccine Aged Out No l onger eligible based on patient's age to complete this topic Pneumococcal Vaccine: Pediatrics (0 to 5 Years) and At-Risk Patients (6 to 49) Years Aged Out No longer eligible based on patient's age to complete this topic RSV under 20 months Aged Out No longe r eligible based on patient's age to complete this topic Rotavirus Vaccines Aged Out No longer eligible based on patient's age to complete this topic Procedures Procedure Name Priority Date/Time Associated Diagnosis Comments COMPREHENSIVE PERIODONTAL EVALUATION - NEW OR ESTABLISHED PATIENT Routine 08/08/2024 9:00 AM EDT ORAL HYGIENE INSTRUCTIONS Routine 2024 9:00 AM EDT BITEWINGS - 4 RADIOGRAPHIC IMAGES Routine 08/08/2024 9:00 AM EDT Full PROPHYLAXIS - ADULT Routine 025 9:00 AM EDT CASE PRESENTATION, DETAILED AND EXTENSIVE TREATMENT PLANNING Routine 08/08/2024 9:00 AM EDT PANORAMIC RADIOGRAPHIC IMAGE Routine 12/20/2023 1:00 PM EDT PERIODIC ORAL EVALUATION - ESTABLISHED PATIENT Routine 07/06/2021 12:00 AM EDT from Last 3 Months or Most Recently Relevant to Health Maintenance Insurance DENTAL - HSN PARTIAL (MEDICAID)
--- OUTSIDE RECORDS SUMMARY | 2024-11-05 17:28 | XMS_ITS | Clinical Summary ---
Author Organization [facility] Address [address] [place] [phone] Phone Care Team Providers Care Event Decorator And Designer Name Role Phone Мария Rodriguez MD Primary Care Provider Immunizations Immunization Administration Dates Next Due COVID-19 (Pre-12/18) Moderna [...] with a working camera? Not on file Comments Unknown Sex and Gender Information Value Date Recorded Sex Assigned at Not on file Legal Sex Female 9:05 AM EST Gender Identity Not on file Sexual Orientation Not on file Plan of Treatment Health Maintenance Due Date Last Done Comments DEPRESSION SCREENING 2008 SMOKING Hx and SMOKELESS TOBACCO SCREENING 2009 HEPATITIS A VACCINES (2 of 2 - 2-dose series) 04/25/2013 10/25/2012 HEPATITIS C SCREENING 2014 HIV ONE-TIME SCREENING (18-65 YEARS) 2014 PAP SMEAR 2017 INFLUENZA VACCINE (#1) 2024 , 11/09/2020, 11/02/2019, Additional history exists Adult Td,Tdap Booster 09/30/2024 09/30/2014, 013 COVID-19 VACCINE ( season) 2024 03/04/2021, 03/23/2020, 02/24/2020 HIB VACCINES Completed 08/20/2001, 01/26, 1996, Additional history exists MENINGOCOCCAL VACCINES (ACWY) Completed 10/01/2014 MENINGOCOCCAL VACCINES (B) Aged Out N o longer eligible based on patient's age to complete this topic PNEUMOCOCCAL VACCINES (0-49 years) Aged Out No longer eligible based on patient's age to complete this topic Medical Devices Not on file Insurance [facility] Care Teams Event Decorator And Designer Relationship Specialty Start Date End Date Мария Rodriguez MD [facility] [place] [id number] PCP - General Internal Medicine 03/01/21 Additional Source Comments The information contained in this document represents components of the legal health record. It is not the complete legal health record.[facility]
--- OUTSIDE RECORDS SUMMARY | 2024-11-05 17:28 | XMS_ITS | Encounter Summary ---
Author Organization [facility] Address [address] [place] [address] Care Team Providers Care Vinyl Flooring Installer Name Role Phone Unavailable Primary Care Provider Unavailabl e Encounter Details Date Type Department Care Team (Latest Contact Info) Description 07/06/2021 Abstract [facility] CONVERSIONS Dental, Provider, DDS Social History Tobacco [...]
== END 2024-11-05 16:10 | disposition home or self-care (01) ==
PROVIDERS: PCP Internal Medicine; Visit Provider Physician Assistant
DX: J06.9 Acute upper respiratory infection, unspecified (principal); Z13.9 Encounter for screening, unspecified

== ENCOUNTER 2024-11-28 10:52 | Outpatient (AMB) | payer OTHER, SELFPAY ==
--- NOTE | 2024-11-28 11:14 | A.OFFVIS_ITS ---
Vital Signs 11/28/24 11:21 Height 5 ft 3 in Weight 128 lb BMI 22.7 BP 90/60 Blood Pressure Location Lt brachial Position Sitting Pulse 83 Pulse Source Pulse Oximeter Pulse Oximetry (%) 99 Oxygen Delivery Method Room Air Intake Visit Reasons: Follow up Intake Note: patient presents for follow up. Supervisor Home Economics Required: No Accompanied by: Self / Same As Patient Allergies [id number] Allergy (Severe, Verified 11/28/24 11:18) throat swelling Penicillins (PENICILLINS) Allergy (Mild, Verified 11/28/24 11:18) RASH amoxicillin (From AUGMENTIN) Allergy (Unknown, Verified 11/28/24 11:18) RASH clavulanic acid (From AUGMENTIN) Allergy (Unknown, Verified 11/28/24 11:18) RASH Pork/Porcine Containing Products (PORK/PORCINE CONTAINING PRODUCTS) Adverse Reaction (Unknown, Verified 11/28/24 11:18) confucianism reasons Medication List - Last Reconciled 11/28/24 by BRITTANY Dia albuterol sulfate 90 mcg/actuation (Ventolin HFA) 1 inh inhalation QID PRN atogepant 60 mg PO DAILY 30 days azelastine-fluticasone 137-50 mcg/spray 1 spray intranasal BID blood-glucose meter (Advanced Glucose Meter) As directed clonazepam 1 - 2 mg (1 - 2 x 1 mg) PO BEDTIME 30 days dihydroergotamine (Trudhesa) 1 actuation in each nostril x1, may repeat dose x1 after 1h intranasally once; (Max: 4 actuations/day, 6 actuations/wk). Do NOT take w/in 24 hrs of a TRIPTAN. PA APPROVED 07/22/24-01/18/25 28 days epinephrine 0.3 mg (0.3 mL) IM Q15M PRN 7 days magnesium oxide 400 mg PO BEDTIME 90 days norethindrone-ethin estradiol 1-35 mg-mcg 1 tab PO DAILY ondansetron 4 mg PO Q8H PRN propranolol 10 mg PO BID 90 days zolpidem 10 mg PO BEDTIME 30 days HPI Comments Details: 29-yr-old female presents for follow-up of migraine, sleep difficulties, and h/o pre-syncope. The patient reports that she will be leaving the country at the end of December for an extended period to travel to [place] for marriage. She will be returning to [place] intermitt[place] after the wedding and hopes to work remotely for a [place]based company. She is hoping to wean herself off of zolpidem before arriving in [facility]. She is hopeful that she will not need to take zolpidem once in [place], as she states that typically she sleeps better if she shares the bed with somebody else, such as her sister. However, she has been noticing some increase in panic attacks, which she attributes to her sister recently getting and her father being diagnosed with cancer. She is worried she might have more with the transition to [facility], so she wonders if she weans off the zolpidem, can she have an increase in her clonazepam, as this can help her anxiety, panic attacks, and sleep. She states her migraine attacks are better controlled on the Qulipta. However, a panic attack can trigger a migraine. She also notes that she is having increased visual auras with her migraine, and that she has never had them this frequently in past. She is due for an eye exam, her eye clinic is [facility] in [place]. She denies any interval near-syncope or syncopal events. 02/18/2024, HPI: Pt had positive tilt table test for orthostatic syncope during the test. Report diagnosis was neurocardiogenic syncope, however follow-up cardiology consult suggested diagnosis is likely POTS. Pt has opted to try conservative measures for now. She is trying to take fluids and salt liberally- but is not specifically measuring her salt intake She states this is helping, but can still have episodes of lightheadedness and syncope. She also has been having increased anxiety, which is preventing her from sleeping well even with taking Ambien. Her ring alerts her that her nocturnal HR can be elevated in the 90s. Last night, she had to take Nyquil in addition to her Ambien in order to get some sleep. She is taking the Clonazepam qhs and 1 extra tab qhs for sleep. She is seeing a therapist, who suggested the patient start on a medication for her mood. She did have a psychiatric consult in 04/17/2023, who did not feel that patient had bipolar disorder. Recommendations included retrial of sertraline- as 50 mg was previously ineffective the patient notes she did not tolerate this, trying an alternate SSRI such as fluoxetine or paroxetine, trial of escitalopram- patient states she had tried this before did not tolerate, trial of an SNRI such as duloxetine, or could consider trial of lamotrigine for mood stabilization. Other previous trials: Bupropion caused severe mood changes. Her migraine is better controlled on Qulipta, now having 3-4 bad migraine days per month. 08/03/23, HPI: Pt reports 2 weeks ago, she had a convulsive syncopal episode. She went to the ER, and work-up was normal. Her BG was 60-70. 07/17/23, Head CT w/o- unremarkable. Per [facility] note, 07/17/23: Patient did have 1 minute long tonic-clonic seizure upon arrival to the ED which was self resolving. ?She was given a Keppra load of 1 g. ?Patient appeared to be slightly confused after the episode however had no urinary incontinence or tongue biting. ?Patient then stated she was feeling very anxious, she was given 1 mg of IV Ativan as well as 2.5 mg of droperidol. 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 CBC, CMP, TSH- NL. There was elevated Lactate- [facility] 07/17/23 18:49 07/17/23 17:21 Lactate 1.7 ?5.8 H Normal Range: 0.5- 2.2 Ever since, she has had 4 episodes of feeling heart racing, head spinning, muscle stiffness, shaking, everything going black, almost fainting. It feels like she will pass out. This is f/b a strong headache. This feels similar to the episode 2 weeks ago. Now she feels she is able to prevent the episode from progressing into passing out, by sitting down and taking sugar (as there was thought that this may be due to low blood sugar). One episode started when working/standing. Today, she was sitting when her heart rate started racing, then got up and walked around when she felt the other symptoms and almost passed out. Overall she is not eating much- likely d/t the Qulipta, however it does help the migraine attacks. But today she had eaten and taken a coffee and a poweraide. She also wonders if this is r/t her recently starting lexapro- she ?'s serotonin syndrome [facility] Medical History (Updated 11/30/24 @ 21:20 by BRITTANY Dia) POTS (postural orthostatic tachycardia syndrome) Environmental and seasonal allergies Allergic rhinitis Weight loss, unintentional Vitamin D deficiency Family history of hyperthyroidism Chronic heartburn Fatigue Pseudoseizures Surgical History Hx of appendectomy Family History Father Epilepsy Hypertension Diabetes Mental health disorder Mother Hyperthyroidism Sister Hyperthyroidism Social History Housing: House Alcohol intake: never Patient Tobacco Use Status: Never used Tobacco e-Cigarette/Vaping Use: Never Used Current occupational status: employed Cognitive needs: No Hearing needs: No Vision needs: Yes Physical Exam Vital Signs: Last Vital Signs Pulse 83 11/28/24 11:21 BP 90/60 11/28/24 11:21 Pulse Ox 99 11/28/24 11:21 Oxygen Delivery Method Room Air 11/28/24 11:21 BMI result Body Mass Index 22.7 Const General: cooperative, no acute distress and tired appearing (pale) Orientation/consciousness: patient oriented x3 Resp Effort & Inspection: normal respiratory effort and able to speak in complete sentences Neuro General: patient oriented x3, moves all extremities and no focal motor deficits Cranial nerves: Yes CN's II-XII intact bilaterally Cognition (Neuro): normal cognition Motor exam (neuro): 06/30 motor strength present throughout Psych Appearance: grossly normal Mental Status: mental status grossly normal Speech and movement: Normal speech and movement present Affect: normal affect Attitude: cooperative Assessment & Plan Assessment & Plan (1) Convulsive syncope: Comment: Pt had a witnessed 1 min tonic-clonic episode f/b fatigue and confusion in [facility] ER a/w transient elevated Lactate level- which does support a dx of epileptic convulsion. However, since, pt has had similar episodes where she has been able to halt the attack before full convulsive syncope commences- which does suggest a nonepileptic convulsion. Note- it is possible for a pt to have both epileptic and non-epileptic convulsion d/o's. ? if Lexapro, even at low 5mg dose, could be affecting seizure threshold and/or mood control. Code(s): R55 - Syncope and collapse Category: Medical (2) Palpitations: Code(s): R00.2 - Palpitations Category: Medical (3) Syncope: Comment: POTS versus neurocardiogenic syncope Code(s): R55 - Syncope and collapse Category: Medical Qualifiers: Syncope type: vasovagal syncope Qualified Code(s): R55 - Syncope and collapse (4) Pre-syncope: Code(s): R55 - Syncope and collapse Category: Medical (5) Migraine with aura: Code(s): G43.109 - Migraine with aura, not intractable, without status migrainosus Category: Medical Qualifiers: Intractability: not intractable Status migrainosus presence: without status migrainosus Qualified Code(s): G43.109 - Migraine with aura, not intractable, without status migrainosus (6) Sleep difficulties: Code(s): G47.9 - Sleep disorder, unspecified Category: Medical Plan For worsening visual aura: Patient is advised to schedule a follow-up eye exam. Patient is advised to undergo brain MRI with and without contrast to assess for secondary underlying etiologies of worsening visual aura. Patient ask for a referral to [facility], for evaluation of menorrhagia. We did discuss the increased risk of stroke in females who have migraine with aura, and that this risk is increased with the using higher dose OCPs. Patient verbalizes understanding, however states that in the past OCPs with lower estrogen levels did not control her menorrhagia symptoms. Favorable factors include her BP is usually low normal in she does not smoke or use tobacco in any capacity. For syncope: Reviewed EEG: Unremarkable. Reviewed tilt-table test and Cardiology notes: Orthostatic hypotension, tachycardia. Likely POTS Continue to increase intake of fluids and salt, including electrolyte replacement beverages.. Take boluses of fluids prior to situations likely to exacerbate orthostatic hypotension, such as showering right during hot environments. Eat several small meals a day. Follow-up with cardiology as scheduled. For sleep and mood: Continue propranolol 10 mg daily at bedtime, may take extra dose per day as needed for anxiety or tachycardia. Continue to monitor for orthostatic lightheadedness. Increase clonazepam 1 mg twice a day as needed for anxiety/panic attack or sleep difficulties. Advised to wean off zolpidem 10 mg tablet-may reduce dose by quarter tablet every few days, until completely stopped. For acute headache treatment: Continue Ubrogepant (Ubrelvy) 100mg tab, 1/2 - 1 tab (50-100mg) at onset of headache, may repeat in 2 hours. Max of 2 tabs (200mg) per 24 hours. May adjunct with OTC Tylenol 650mg q 4 hours, Ibuprofen 600mg q 6 hours, or Naproxen 440mg q 12 hrs prn. Continue Trudhesa, 1 spray into each nostril for severe migraine attack, may repeat in 1 hour, max of 4 sprays total per day or 6 sprays total per week. Previous acute migraine medication trials: Sumatriptan- chest burning. Ubrelvy 50mg samples- unsure of effect. Rizatripatn- not tolerated. Naratriptan- not tolerated. Acute migraine medication contraindications: Nurtec-as this contains pork. ? For headache prevention medication: Continue Qulipta 60 mg daily at bedtime Continue Magnesium 400mg qhs- is helpful for constipation as well. Previous migraine prevention medication trials: Topiramate- ineffective and mood changes. Propranolol- caused hypotension. Aimovig- nausea, joint pain. Ajovy- ineffective. Emgality- ineffective. Botox- x's 2 cycles- ineffective. Mag- ineffective. Amitriptyline 75mg qhs- not tolerated. Vyepti 100mg- effective but caused hypersensitivity reaction. Migraine prevention medication contraindications: Nurtec ODT- contains pork, which is religiously contraindicated. Pt to follow-up in 3-4 months or sooner prn. Orders: Orders MR head/brain wo/w con 11/28/24 H53.9 - Unspecified visual disturbance, R51.9 - Headache, unspecified Referrals INTERNET SYSTEMS ADMINISTRATOR Referral N92.0 - Excessive and frequent menstruation with regular cycle Medications: Changed From atogepant at bedtime. PA APPROVED 09/09/24-12/08/24 60 mg PO DAILY 30 days 30 tabs 6RF To atogepant at bedtime. 60 mg PO DAILY 90 tabs 3RF 90 days From clonazepam 1 - 2 mg (1 - 2 x 1 mg) PO BEDTIME 30 days 45 tabs 3RF To clonazepam 1 mg PO BID PRN 60 tabs 0RF sleep and panic attack 30 days Refilled dihydroergotamine (Trudhesa) 1 actuation in each nostril x1, may repeat dose x1 after 1h intranasally once; (Max: 4 actuations/day, 6 actuations/wk). Do NOT take w/in 24 hrs of a TRIPTAN. PA APPROVED 07/22/24-01/18/25 4 mL 6RF migraine 28 days G43.109 - Migraine with aura, not intractable, without status migrainosus ubrogepant (Ubrelvy) take at onset of migraine, may repeat in 2hrs (may take w/ Ibuprofen) 50 - 100 mg (0.5 - 1 x 100 mg) PO ONCE PRN 16 tabs 6RF migraine headache 30 days Coding Level of Care Code Est Pt Level 4 (57886) Complex EM visit Add On G2211 Diagnoses Convulsive syncope R55 Palpitations R00.2 Vasovagal syncope R55 Syncope type: vasovagal syncope Pre-syncope R55 Migraine with aura and without status migrainosus, not intractable G43.109 Intractability: not intractable Status migrainosus presence: without status migrainosus Sleep difficulties G47.9
[2024-11-28 11:21] VITALS: BP 90/60; PULSE 83; O2SAT 99; BMI 22.7
--- OUTSIDE RECORDS SUMMARY | 2024-11-28 12:07 | XMS_ITS | Clinical Summary ---
Author Organization [employer] Address [address] [facility] [address] [place] [address] Care Team Providers Care Chief Deputy Sheriff Name Role Phone Unavailable Primary Care Provider Unavailabl e Allergies Active Allergy Reactions Criticality Noted Date Comments Amoxicillin-Pot Clavulanate 12/20/19 24 Penicillins 05/22/2024 Pork Allergy 05/22/2024 no pork- jew reasons Medications clonazePAM (KlonoPIN) 1 MG tablet [...] Active Trudhesa 0.725 MG/ACT aerosol solution 07/23/19 25 Active famotidine (Pepcid) 20 MG tablet Take [...] adolescence 07/14/2014 Dissociative convulsions 07/10/2014 Menorrhagia 07/07/2014 Social History Tobacco Use Types Packs/Day Years [...] Screening 08/08/2025 08/08/2024 Dental X-Ray: Bitewings 08/09/2025 08/09/19, 05/22/2024, 12/20/2023, Additional history exists Dental X-Ray: [...] Procedure Name Priority Date/Time Associated Diagnosis Comments Full PROPHYLAXIS - ADULT Routine 025 9:00 AM EDT BITEWINGS - 4 RADIOGRAPHIC IMAGES Routine 08/08/2024 9:00 AM EDT PANORAMIC RADIOGRAPHIC IMAGE Routine 12/20/2023 1:00 PM EDT PERIODIC ORAL EVALUATION - ESTABLISHED PATIENT Routine 07/06/2021 12:00 AM EDT from Last 3 Months or Most Recently Relevant to Health Maintenance Insurance DENTAL - HSN PARTIAL (MEDICAID)
--- OUTSIDE RECORDS SUMMARY | 2024-11-28 12:07 | XMS_ITS | Encounter Summary ---
Author Organization [facility] Address [address] [facility] [address] [place] [address] Care Team Providers Care Network Lead Name Role Phone Unavailable Primary Care Provider Unavailabl e Encounter Details Date Type Department Care Team (Latest Contact Info) Description 07/06/2021 Abstract [facility] CONVERSIONS Dental, Provider, DDS Social History Tobacco [...]
--- OUTSIDE RECORDS SUMMARY | 2024-11-28 12:07 | XMS_ITS | Clinical Summary ---
Author Organization [facility] Address [address] [place] [address] Phone Care Team Providers Care Hemodialysis Technician Name Role Phone Мария Rodriguez MD Primary [...] topic Medical Devices Not on file Insurance [employer] Care Teams Hemodialysis Technician Relationship Specialty Start Date End Date Мария Rodriguez MD [facility] [place] [address] PCP - General Internal Medicine 03/01/21 Additional Source Comments The information contained in this document represents components of the legal health record. It is not the complete legal health record.[facility]
--- OUTSIDE RECORDS SUMMARY | 2024-11-28 12:07 | XMS_ITS | Encounter Summary ---
Author Organization [employer] Address [address] [facility] 7[address] [place] [address] Care Team Providers Care Manager Statistical Name Role Phone Unavailable Primary Care Provider Unavailabl e Reason for Visit * Reason Onset Date Comments rs no show appt 02/05/2024 Encounter Details Date Type Department Care Team ([facility] st Contact Info) Description 02/05/2024 Telephone [facility] [address] [place], [place] [phone] Yrn, Jeffrey [address] [place], [place] [phone] rs no show appt Social History Tobacco [...]
== END 2024-11-28 12:04 | disposition home or self-care (01) ==
LOC: HO.HSMS 10:53
PROVIDERS: PCP Internal Medicine; Visit Provider Nurse Practitioner Family
DX: R55 Syncope and collapse (principal); R00.2 Palpitations; G43.109 Migraine with aura, not intractable, without status migrainosus; G47.9 Sleep disorder, unspecified
CPT/HCPCS: 99214

== ENCOUNTER → 2024-11-28 10:52 | Outpatient (BNVA) | payer OTHER, SELFPAY | PROVIDERS: PCP Internal Medicine; Visit Provider Nurse Practitioner Family | DX: R55 Syncope and collapse (principal); R00.2 Palpitations; G43.109 Migraine with aura, not intractable, without status migrainosus; G47.9 Sleep disorder, unspecified; H53.9 Unspecified visual disturbance | CPT/HCPCS: 99212 ==

== ENCOUNTER 2024-12-15 14:56 | Outpatient (AMB) | payer OTHER, SELFPAY ==
[2024-12-15 15:04] VITALS: BP 96/60; PULSE 79; RESP 16; TEMP 36.8; BMI 22.8
--- NOTE | 2024-12-15 15:04 | MHC.PC.OV ---
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 Employee Communications Required: No Is last menstrual period known: Yes Last menstrual period: 11/15/24 Allergies [id number]-jjmr Allergy (Severe, Verified 12/15/24 15:50) throat swelling Penicillins (PENICILLINS) Allergy (Mild, Verified 12/15/24 15:50) RASH amoxicillin (From AUGMENTIN) Allergy (Unknown, Verified 12/15/24 15:50) RASH clavulanic acid (From AUGMENTIN) Allergy (Unknown, Verified 12/15/24 15:50) RASH Pork/Porcine Containing Products (PORK/PORCINE CONTAINING PRODUCTS) Adverse Reaction (Unknown, Verified 12/15/24 15:50) evangelical reasons Medication List - Last Reconciled 12/15/24 by Мария Rodriguez MD albuterol sulfate 90 mcg/actuation (Ventolin HFA) 1 inh inhalation QID PRN 3 months atogepant 60 mg PO DAILY 90 days blood-glucose meter (Advanced Glucose Meter) As directed clonazepam 1 mg PO BID PRN 30 days dihydroergotamine (Trudhesa) 1 actuation in each nostril x1, may repeat dose x1 after 1h intranasally once; (Max: 4 actuations/day, 6 actuations/wk). Do NOT take w/in 24 hrs of a TRIPTAN. PA APPROVED 07/22/24-01/18/25 28 days epinephrine 0.3 mg (0.3 mL) IM Q15M PRN 7 days magnesium oxide 400 mg PO BEDTIME 90 days norethindrone-ethin estradiol 1-35 mg-mcg 1 tab PO DAILY ondansetron 4 mg PO Q8H PRN propranolol 10 mg PO BID 90 days ubrogepant (Ubrelvy) 50 - 100 mg (0.5 - 1 x 100 mg) PO ONCE PRN 30 days zolpidem 10 mg PO BEDTIME 30 days Tobacco use date assessed: 12/15/24 Dental Screening Dental Screen Date: 12/15/24 Did you have a dental visit in the last 12 months?: No Did you have a dental problem in the last 6 months where you did not have access to dental care?: No Was dental information given to patient?: Patient has dentist [facility] Medical History (Updated 12/15/24 @ 15:53 by аМрия Rodriguez MD) POTS (postural orthostatic tachycardia syndrome) Environmental and seasonal allergies Vitamin D deficiency Family history of hyperthyroidism Chronic heartburn Fatigue Pseudoseizures Surgical History Hx of appendectomy Family History Father Epilepsy Hypertension Diabetes Mental health disorder CAD (coronary artery disease) B-cell non-Hodgkin lymphoma Status post coronary artery bypass graft Mother Hyperthyroidism Sister Hyperthyroidism Social History Housing: House Alcohol intake: never Patient Tobacco Use Status: Never used Tobacco e-Cigarette/Vaping Use: Never Used Current occupational status: employed Cognitive needs: No Hearing needs: No Vision needs: Yes Female Reproductive History Menstrual Date of last menstrual period: 11/15/24 Questionnaire PHQ-9 Over the last 2 weeks, how often have you been bothered by any of the following problems? 1. Little interest or pleasure in doing things: not at all 2. Feeling down, depressed, or hopeless: not at all 3. Trouble falling or staying asleep, or sleeping too much: several days 4. Feeling tired or having little energy: more than half the days 5. Poor appetite or overeating: several days 6. Feeling bad about yourself - or that you are a failure or have let yourself or your family down: not at all 7. Trouble concentrating on things, such as reading the newspaper or watching television: not at all 8. Moving or speaking so slowly that other people could have noticed. Or the opposite - being so fidgety or restless that you have been moving around a lot more than usual: not at all 9. Thoughts that you would be better off or of hurting yourself in some way: not at all Total score: 4 Depression Screening Interpretation: Negative Depression Screening Done: Yes Source: Developed by Drs. Coy Gabriel, Patricia B.Mahin Phelps and colleagues, with an educational nishi from [employer]. Thrive Questionnaire Date Thrive assessed: 05/22/24 I am a: Patient What is your living situation today?: I have a steady place to live Within the past 12 months, did the food you bought not last and you didn't have the money to get more?: I choose not to answer this question Within the past 12 months, did you worry whether your food would run out before you got money to buy more?: Never true Do you have trouble paying for medicines?: No Do you have trouble getting transportation to medical appointments?: No Do you have trouble paying your heating and electricity bill?: No Do you have trouble taking care of your child, family member or friend?: No Do you have trouble with day-to-day activities such as bathing, preparing meals, shopping, managing finances, etc.?: No Are you currently unemployed and looking for a job?: No Are you interested in more education?: Yes Please select the resources that you would like help with: None Currently or been in a relationship where the following occur: No concerns reported THRIVE Score: 0 AUDIT C Alcohol Use Questionnaire (AUDIT-C) 1. How often do you have a drink containing alcohol?: Never Total Score: 0 AXEL-7 AMB Questionnaire AXEL-7 Date AXEL - 7 assessed: 12/15/24 Feeling nervous, anxious, or on edge: 3 = Nearly every day Not being able to stop or control worryin = Nearly every day Worrying too much about different things: 3 = Nearly every day Trouble relaxin = Nearly every day Being so restless that it is hard to sit still: 2 = More than half the days Becoming easily annoyed or irritable: 2 = More than half the days Feeling afraid as if something awful might happen: 2 = More than half the days Total AXEL-7 score (0-4 normal; 5-9 mild; 10-14 moderate; 15-21 severe): 18 Source: Developed by Drs. Coy Gabriel, Mahin Bui and colleagues, with an educational nishi from [employer]. AXEL-7 Assessment Billing AXEL-7 Assessment Tool: AXEL-7 Assessment 63951 (Currently on clonazepam as needed, declines referral for counseling) Physical exam (Primary Care) Vital Signs: Last Vital Signs Temp 98.2 F 12/15/24 15:04 Pulse 79 12/15/24 15:04 Resp 16 12/15/24 15:04 BP 96/60 12/15/24 15:04 BMI result Body Mass Index 22.8 Tobacco/Smoking Status: Tobacco use Status Tobacco use date assessed 12/15/24 12/15/24 15:10 Patient Tobacco Use Status Never used Tobacco 12/15/24 15:10 e-Cigarette/Vaping Use Never Used 12/15/24 15:10 PHQ-9: PHQ-9 Score PHQ-9: Total score 4 12/15/24 15:12 Depression Screening Interpretation: Negative Thrive Assessment: Date of Thrive Assessment Date Thrive assessed 05/22/24 12/15/24 15:10 Currently or been in a relationship where the following occur: No concerns reported Office Procedures Flu Questionnaire Does the patient have a severe egg allergy?: No Does the patient have severe life threatening allergies?: No Does the patient have a fever or illness today?: No Has the patient ever had Guillain-[place] Syndrome?: No Has the patient ever had any past reaction to a flu shot?: No Immunizations Fluarix [id number] (PF) 45 mcg (15 mcg x 3)/0.5 mL IM syringe Performing Provider: Мария Rodriguez MD Performing Location: [facility] Administered by: Carol Lee CMA on 12/15/24 15:28 Dose Route Admin Location Dispensed Lot Number Expiration Date [facility] Test Design Engineer 0.5 mL IM Right Deltoid 0.5 mL [id number] 08/25/25 [id number] [employer] V[employer] Given Date VIS Provided VIS Publication Date 12/15/24 Single Vaccine 24 Eligibility Eligibility Date Funding Source Not [facility] Eligible 12/15/24 Private Coding Level of Care Code Est Pt Prev Care 18-39y(50404) Diagnoses Migraine with aura and without status migrainosus, not intractable G43.109 Intractability: not intractable Status migrainosus presence: without status migrainosus Chronic heartburn R12 Family history of hyperthyroidism Z83.49 Environmental and seasonal allergies J30.89 POTS (postural orthostatic tachycardia syndrome) G90.A Annual visit for general adult medical examination with abnormal findings Z00.01 Additional Codes AXEL-7 Assessment Billing - AXEL-7 Assessment Tool: AXEL-7 Assessment 59161 ([id number]) Assessment & Plan Assessment & Plan (1) Migraine with aura: Code(s): G43.109 - Migraine with aura, not intractable, without status migrainosus Category: Medical Qualifiers: Intractability: not intractable Status migrainosus presence: without status migrainosus Qualified Code(s): G43.109 - Migraine with aura, not intractable, without status migrainosus (2) Chronic heartburn: Code(s): R12 - Heartburn Category: Medical (3) Family history of hyperthyroidism: Code(s): Z83.49 - Family history of other endocrine, nutritional and metabolic diseases Category: Medical (4) Environmental and seasonal allergies: Code(s): J30.89 - Other allergic rhinitis Category: Medical (5) POTS (postural orthostatic tachycardia syndrome): Code(s): G90.A - Postural orthostatic tachycardia syndrome [POTS] Category: Medical (6) Annual visit for general adult medical examination with abnormal findings: Code(s): Z00.01 - Encounter for general adult medical examination with abnormal findings Orders: Orders Alanine Aminotransferase Today G43.109 - Migraine with aura, not intractable, without status migrainosus, J30.89 - Other allergic rhinitis, R12 - Heartburn, Z83.49 - Family history of other endocrine, nutritional and metabolic diseases TSH reflex Free T4 Today G43.109 - Migraine with aura, not intractable, without status migrainosus, J30.89 - Other allergic rhinitis, R12 - Heartburn, Z83.49 - Family history of other endocrine, nutritional and metabolic diseases Lipid Panel Today G43.109 - Migraine with aura, not intractable, without status migrainosus, J30.89 - Other allergic rhinitis, R12 - Heartburn, Z83.49 - Family history of other endocrine, nutritional and metabolic diseases Complete Blood Count Auto Diff Today G43.109 - Migraine with aura, not intractable, without status migrainosus, J30.89 - Other allergic rhinitis, R12 - Heartburn, Z83.49 - Family history of other endocrine, nutritional and metabolic diseases Influenza [id number] Immunization Today Z23 - Encounter for immunization Aspartate Amino Transferase Today G43.109 - Migraine with aura, not intractable, without status migrainosus, J30.89 - Other allergic rhinitis, R12 - Heartburn, Z83.49 - Family history of other endocrine, nutritional and metabolic diseases Basic Metabolic Panel Fasting Today G43.109 - Migraine with aura, not intractable, without status migrainosus, J30.89 - Other allergic rhinitis, R12 - Heartburn, Z83.49 - Family history of other endocrine, nutritional and metabolic diseases Vitamin D 25-OH Total Today G43.109 - Migraine with aura, not intractable, without status migrainosus, J30.89 - Other allergic rhinitis, R12 - Heartburn, Z83.49 - Family history of other endocrine, nutritional and metabolic diseases Vitamin B12 and Folate Today G43.109 - Migraine with aura, not intractable, without status migrainosus, J30.89 - Other allergic rhinitis, R12 - Heartburn, Z83.49 - Family history of other endocrine, nutritional and metabolic diseases Medications: Changed From albuterol sulfate 90 mcg/actuation (Ventolin HFA) 1 inh inhalation QID PRN 8.5 grams 1RF shortness of breath or wheezing To albuterol sulfate 90 mcg/actuation (Ventolin HFA) 1 inh inhalation QID PRN 3 inhalers 1RF shortness of breath or wheezing 3 months From norethindrone-ethin estradiol 1-35 mg-mcg 1 tab PO DAILY To norethindrone-ethin estradiol 1-35 mg-mcg Patient [place] the country [place] at least more than six-months 1 tab PO DAILY 360 tabs 0RF 12 months
--- OUTSIDE RECORDS SUMMARY | 2024-12-15 19:09 | XMS_ITS | Clinical Summary ---
Author Organization [facility] Address [address] [place] [id number] Phone Care Team Providers Care Tool Storage Attendant Name Role Phone Мария Rodriguez MD Primary [...] topic Medical Devices Not on file Insurance [facility] Care Teams Tool Storage Attendant Relationship Specialty Start Date End Date Мария Rodriguez MD [facility] [place] [place] [address] PCP - General Internal Medicine 03/01/21 Additional Source Comments The information contained in this document represents components of the legal health record. It is not the complete legal health record.[facility]
--- OUTSIDE RECORDS SUMMARY | 2024-12-15 19:09 | XMS_ITS | Encounter Summary ---
Author Organization [facility] Address [address] [facility] [address] [place] [address] Care Team Providers Care Salvage Grinder Name Role Phone Unavailable Primary Care Provider Unavailabl e Encounter Details Date Type Department Care Team (Latest Contact Info) Description 07/06/[address] [facility] CONVERSIONS Dental, Provider, DDS Social History [...]
--- OUTSIDE RECORDS SUMMARY | 2024-12-15 19:10 | XMS_ITS | Encounter Summary ---
Author Organization [employer] Address [address] [facility] [address] [place] [address] Care Team Providers Care Backshoe Person Name Role Phone Unavailable Primary Care Provider Unavailabl e Reason for Visit * Reason Onset Date Comments rs no show appt 02/05/2024 Encounter Details Date Type Department Care Team ([facility] st Contact Info) Description 02/05/2024 Telephone C [facility] [address] [place], [place] [phone] Yrn, Jeffrey [address] [place], [place] [phone] rs no show appt Social History Tobacco [...]
--- OUTSIDE RECORDS SUMMARY | 2024-12-15 19:10 | XMS_ITS | Clinical Summary ---
Author Organization [employer] Address [address] [facility] [address] [place] [address] Care Team Providers Care General Road Foreman Name Role Phone Unavailable Primary Care Provider Unavailabl e Allergies Active Allergy Reactions Criticality Noted Date Comments Amoxicillin-Pot Clavulanate 12/20/19 24 Penicillins 05/22/2024 Pork Allergy 05/22/2024 no pork- mandaeism reasons Medications clonazePAM (KlonoPIN) 1 MG tablet [...]
== END 2024-12-15 15:49 | disposition home or self-care (01) ==
LOC: HO.HMCC 14:56
PROVIDERS: PCP Internal Medicine; Visit Provider Internal Medicine
DX: Z23 Encounter for immunization (principal)

== ENCOUNTER → 2024-12-15 14:56 | Outpatient (BNVA) | payer OTHER, SELFPAY | PROVIDERS: PCP Internal Medicine; Visit Provider Internal Medicine | DX: Z00.01 Encounter for general adult medical examination with abnormal findings (principal); G90.A Postural orthostatic tachycardia syndrome [POTS]; F51.04 Psychophysiologic insomnia; G43.109 Migraine with aura, not intractable, without status migrainosus; J98.9 Respiratory disorder, unspecified; Z23 Encounter for immunization; Z83.49 Family history of other endocrine, nutritional and metabolic diseases; Z79.899 Other long term (current) drug therapy | CPT/HCPCS: 90471; 90656; 96127; 99395 ==

== ENCOUNTER 2024-12-16 10:51 | Outpatient (REF) | payer OTHER, SELFPAY ==
--- OUTSIDE RECORDS SUMMARY | 2024-12-16 13:16 | XMS_ITS | Clinical Summary ---
Author Organization [employer] Address [address] [facility] [address] [place] [address] Care Team Providers Care Review Analyst Name Role Phone Unavailable Primary Care Provider Unavailabl e Allergies Active Allergy Reactions Criticality Noted Date Comments Amoxicillin-Pot Clavulanate 12/20/19 24 Penicillins 05/22/2024 Pork Allergy 05/22/2024 no pork- catholic reasons Medications clonazePAM (KlonoPIN) 1 MG tablet [...]
--- OUTSIDE RECORDS SUMMARY | 2024-12-16 13:16 | XMS_ITS | Data Portability ---
Author Organization [facility] Address [address] [place] [address] Assessment No assessment recorded. Plan of Treatment Reminders Order Date Submit Date Provider Last Modified By Organization Details Last Modified Time Details Appointments None recorded. Lab rapid strep group A, throat 2022 023 [facility] 20995_ayla desai, [address] [place] [address] [place], [address], 3 16:45:29 urinalysis, dipstick 2022 023 tati _ayla desai, [address] [place] [address], [place], [address], 3 19:35:57 test, urine 2022 023 tati _ayla desai, [address] [place] [address], [address], 3 19:35:57 Referral None recorded. Procedures None recorded. Surgeries None recorded. Imaging None recorded. Medication Orders prednisone 20 mg tablet 2022 023 DONNY [id number], [address] [place], [address], 3 17:05:09 benzonatate 100 mg capsule 2022 023 [id number], [address] [place], [address], 3 17:45:17 fexofenadin e-pseudoeph edrine ER 180 mg-240 mg tablet,ext. release 24 hr 2022 023 DONNY [id number], [address] [facility] [place], [address], 3 16:26:20 prednisone 20 mg tablet 2022 023 [email or web address] [id number], [address] [facility] [place], [address], 3 16:25:57 Patient TargetsNo targets recorded. Patient Instructions Encounter Date Encounter Id Patient Instructions Last Modified By Organization Details Last Modified Time 04/24/2022 [id number] Sinusitis is an infection of the lining [...] care for yourself at home? Take an ecqu-hxz-zsoqrin pain medicine. Avoid Ibuprofen, Aleve and Aspirin if . If the doctor prescribed antibiotics, take them as directed. Do not stop taking them just because you feel better. You need to take the full course of antibiotics. Be careful when taking zfcc-hsc-awmomhl cold or influenza (flu) medicines and Tylenol [...] nose drops at a grocery store or drugsTamra-Tac[employer] Capital Partnerse. Or you can make your own at [...] worse. [email or web address] Not available 04/24/2022 19:33:59 08/14/2022 [id number] laryngitis: care instructions Not available 08/14/2022 17:05:07 upper respirator y infection (cold): care instructions Not available 08/14/2022 17:05:17 Reason for Referral None Reported. Results Created Date Observation Date Name Description Value Unit Range Abnormal Flag Note LastModifiedBy Organization Detail LastModifiedTime 04/24/1904/24/2022 pregn tegan test, urine Unknown Analyte Normal = Negati ve Not Available [address], [address], 04/24/2022 19:11:09 04/24/19 23 04/24/2022 pregn tegan test, urine Unknown Analyte negati ve Not Available [address], [address], 04/24/2022 19:11:09 04/24/19 23 04/24/2022 urina lysis , dipst ick Unknown Analyte Normal = light yellow Not Available [address], [address], 04/24/2022 19:10:12 04/24/19 23 04/24/2022 urina lysis , dipst ick Unknown Analyte Dark Yellow Not Available [facility] [address] [place] [address], [place], [address], 04/24/2022 19:10:12 04/24/19 23 04/24/2022 urina lysis , dipst ick Unknown Analyte Normal = clear Not Available [facility], [place], [address], 04/24/2022 19:10:12 04/24/19 23 04/24/2022 urina lysis , dipst ick Unknown Analyte Clear Not Available ayla [address], [place], [address], 04/24/2022 19:10:12 04/24/19 23 04/24/2022 urina lysis , dipst ick Unknown Analyte Normal = negati ve Not Available [facility], [place], [address], 04/24/2022 19:10:12 04/24/19 23 04/24/2022 urina lysis , dipst ick Unknown Analyte Negati ve Not Available [facility] [address] [place] [address], [place], [address], 04/24/2022 19:10:12 04/24/19 23 04/24/2022 urina lysis , dipst ick Unknown Analyte Normal = Negati ve Not Available [facility] [address] [place] [address], [place], [address], 04/24/2022 19:10:12 04/24/19 23 04/24/2022 urina lysis , dipst ick Unknown Analyte Negati ve Not Available [facility] [address] [place] [address], [place], [address], 04/24/2022 19:10:12 04/24/19 23 04/24/2022 urina lysis , dipst ick Unknown Analyte Normal = Negati ve Not Available jina mac [address], [place], [address], 04/24/2022 19:10:12 04/24/19 23 04/24/2022 urina lysis , dipst ick Unknown Analyte Trace Not Available [address], [place], [address], 04/24/2022 19:10:12 04/24/19 23 04/24/2022 urina lysis , dipst ick Unknown Analyte Normal = 1.010, 1.015, 1.020 Not Available [facility] [address], [place], [address], 04/24/2022 19:10:12 04/24/1904/24/2022 urina lysis , dipst ick Unknown Analyte 1.025 Not Available [address], [place], [address], 04/24/2022 19:10:12 04/24/1904/24/2022 urina lysis , dipst ick Unknown Analyte Normal = Negati ve Not Available jina mac [address], [place], [place], [address], 04/24/2022 19:10:12 04/24/1904/24/2022 urina lysis , dipst ick Unknown Analyte Trace- intact Not Available [facility] [address], [place], [place], [address], 04/24/2022 19:10:12 04/24/19 23 04/24/2022 urina lysis , dipst ick Unknown Analyte Normal = 6.5, 7.0, 7.5, 8.0 Not Available [address] [place] [address], [place], [address], 04/24/2022 19:10:12 04/24/19 23 04/24/2022 urina lysis , dipst ick Unknown Analyte 6.5 Not Available [facility] [address], [place], [address], 04/24/2022 19:10:12 04/24/19 23 04/24/2022 urina lysis , dipst ick Unknown Analyte Normal = Negati ve Not Available [facility] [address], [place], [address], 04/24/2022 19:10:12 04/24/19 23 04/24/2022 urina lysis , dipst ick Unknown Analyte Trace Not Available [address], [place], [address], 04/24/2022 19:10:12 04/24/19 23 04/24/2022 urina lysis , dipst ick Unknown Analyte Normal = 0.2, 1.0 Not Available [address], [place], [address], 04/24/2022 19:10:12 04/24/19 23 04/24/2022 urina lysis , dipst ick Unknown Analyte 1.0 E.U./d L Not Available [address], [place], [address], 04/24/2022 19:10:12 04/24/19 23 04/24/2022 urina lysis , dipst ick Unknown Analyte Normal = Negati ve Not Available [address], [place], [address], 04/24/2022 19:10:12 04/24/19 23 04/24/2022 urina lysis , dipst ick Unknown Analyte Negati ve Not Available [address], [place], [address], 04/24/2022 19:10:12 04/24/19 23 04/24/2022 urina lysis , dipst ick Unknown Analyte Normal = Negati ve Not Available [address] [place] [address], [place], [address], 04/24/2022 19:10:12 04/24/19 23 04/24/2022 urina lysis , dipst ick Unknown Analyte Negati ve Not Available [address] [place] [address], [place], [address], 04/24/2022 19:10:12 08/15/19 23 08/14/2022 rapid strep group A, throa t Unknown Analyte Normal = Negati ve Not Available [address] [place] [address], [place], [address], 08/14/2022 16:29:12 08/15/19 23 08/14/2022 rapid strep group A, throa t Unknown Analyte negati ve Not Available [address] [place] [address], [place], [address], 08/14/2022 16:29:12 Result Notes None recorded. Problems Name Problem SNOMED Code Status Onset Date Resolution Date Notes Provider Name and Address Organization Details Recorded Time Anxiety 51379732 Active 023 MIKO JORDAN null, [place] - [facility] 3 19:09:20 Depressive disorder 77897783 Active 023 MIKO JORDAN null, [place] - [facility] 3 19:09:28 Insomnia 321572716 Active 023 MIKO JORDAN null, [place] - [facility] 3 19:09:33 Migraine 72101886 Active 023 MIKO JORDAN null, [place] - [facility] 3 19:09:38 Problem Notes None recorded. Medical Equipment [...] Not Available Not Available No t Available fexofenadin e-pseudoeph edrine ER 180 mg-240 mg tablet,ext. release 24 hr Take 1 tablet every day by oral route in the evening for 10 days. 08/14 completed Not Available Not Available Not Available cholecalcif radha (vitamin D3) 1,250 mcg [...] Pulse oximetry Heart rate Body temperature Systolic And Diastolic Provider Name and Address Organization Details Last Updated DateTime 3 162.56 cm 25.7 kg/m2 80842.8 6 g 0 20 /min 99 % 99 % 76 /min 98.4 [degF] 132/80 mm[Hg] MIKO JORDAN [place] - [facility] 3 19:04:56 Date Recorded Body height Body mass index (BMI) Body weight Body temperature Respiratory rate Oxygen saturation Oxygen saturation in Arterial blood by Pulse oximetry Heart rate Systolic And Diastolic Provider Name and Address Organization Details Last Updated DateTime 3 162.56 cm 19.7 kg/m2 04720.1 2 g 98.2 [degF] 16 /min 97 % 97 % 81 /min 109/78 mm[Hg] ARIES ADAMS [place] - [facility] 3 16:28:32 Social History Question Answer Notes LastModified by [employer] Details LastModified Time Tobacco Smoking Status Never Smoker MIKO romero [place] - [facility] 04/24/2022 19:10:01 Have You Recently Traveled Abroad? No [email or web address] Information not available 04/24/2022 Sex: Unknown Functional Status Question Answer Note LastModified by [employer] Details LastModified Time Do you use any illicit or recreational drugs? No [email or web address] Information not available 04/24/2022 Do you or have you ever used any other forms of tobacco or nicotine? No [email or web address] Information not available 04/24/2022 What is your level of alcohol consumption? None [email or web address] Information not available 04/24/2022 Mental Status None recorded. Family History Relationship Description Onset Age of this Age Resolved Age Notes LastModified by Organization Details LastModified Time Father No current problems or disability [email or web address] Not available 04/24 19:09:50 Mother No current problems or disability [email or web address] Not available 04/24 19:09:50 Medical History Condition [...] Diagnosis SNOMED-CT Code Diagnosis ICD10 Code Diagnosis IMO Codes Diagnosis Note [id number] [facility] [address] [place] [address] 08/02/2017 14:11:03 08/02/2017 15:47:48 [id number] [facility] [address] [place] [address] 11/28/2017 14:03:54 11/28/2017 15:07:52 [id number] [facility] [address] [place] [address] 06/08/2018 20:09:49 06/08/2018 20:27:16 [id number] [facility] [address] [place] [address] 11/25/2018 13:37:21 11/25/2018 14:11:43 [id number] [facility] [address] [address] [place] [address] 04/13/2016 15:28:35 04/13/2016 15:58:09 [id number] [facility] [address] [address] [place] [address] 07/09/2019 14:03:54 07/09/2019 14:26:53 [id number] [facility] [address] [address] [place] [address] 06/14/2016 11:49:13 06/14/2016 13:04:06 [id number] [facility] [address] [address] [place] [address] 12/10/2018 18:36:46 12/10/2018 19:37:40 [id number] [facility] [address] [address] [place] [address] 11/26/2017 10:23:04 11/26/2017 11:27:01 [id number] [facility] [address] [address] [place] [address] 11/01/2016 14:26:42 11/01/2016 15:28:03 [id number] [facility] [address] [place] [address] 03/25/2021 15:54:29 03/25/2021 18:50:14 [id number] [facility] [address] [address] [place] [address] 04/06/2017 17:46:58 04/06/2017 18:35:42 [id number] [facility] [address] [address] [place] [address] 01/15/2019 08:20:12 01/15/2019 09:34:19 [id number] Ryne Irving NP [address] [address] [place] [address] 04/24/2022 18:50:06 04/24/2022 19:36:32 Acute sinusitis 83585696 J01.90 Mild dehydration 6813440 119 108 E86.0 [id number] Isabella Sepulveda MD [address] [address] [place] [address] 08/14/2022 15:22:24 08/14/2022 17:06:48 Acute laryngitis 6534694 J04.0 Please follow up with PCP or Urgent Care in 3-5 days if no improvemen t or if any new symptoms occur that are concerning . Upper resp iratory infection [id number] J06.9 Please follow up with PCP or [...] Recorded Advance Directives Directive None Recorded Payers Insurance Date Sequence Insurance Name Policy Number Policy Leiva Covered Member ID Leiva Member ID Guarantor Name 08/14/2022 1 [facility] [employer] - HEALTH NET PLAN (MEDICAID HMO) BRITTANY Mitchellid [id number] Juany Julian Notes Date Note Type Note Provider Name and Address Organization Details Recorded Time 3 text/html CongestionReported by Patientnasal congestion with post nasal drip x 3 days. denies any fever or fever with chills. no SOB or respiratory distress. Ryne rIving NP [address] [place], [address], [place] - [facility] 04/24/2022 19:36:41 3 text/html Sore throatReported by PatientSore ThroatFor associated symptoms, patient reportshoarseness,nasal congestion, andcoughing. For source of patient information, patient reportsinformation obtained from patient. For location, patient reportsthroat. For severity, patient reportsmoderate. For quality, patient reportshurts to swallow. For onset/timing, patient reports3 days. For context, patient reportsno sick contacts,no foreign travel, andnon-smoker. Isabella Sepulveda MD [address] [place], [address], [place] [facility] 08/14/2022 17:46:39 OBGyn Episode No OBEpisode recorded.
--- OUTSIDE RECORDS SUMMARY | 2024-12-16 13:16 | XMS_ITS | Encounter Summary ---
Author Organization [employer] Address [address] [facility] 7[address] [place] [address] Care Team Providers Care Home Health Care Case Manager Name Role Phone Unavailable Primary Care Provider Unavailabl e Reason for Visit * Reason Onset Date Comments rs no show appt 02/05/2024 Encounter Details Date Type Department Care Team ([facility] st Contact Info) Description 02/05/2024 Telephone C [facility] [address] [place], [place] [phone] Yrn, Jeffrey [address] [place], [place] [phone] rs no show appt Social History Tobacco [...]
--- OUTSIDE RECORDS SUMMARY | 2024-12-16 13:16 | XMS_ITS | Clinical Summary ---
Author Organization [facility] Address [address] [place] [address] Phone Care Team Providers Care Management Professionals Name Role Phone Мария Rodriguez MD Primary [...] topic Medical Devices Not on file Insurance [facility] Care Teams Management Professionals Relationship Specialty Start Date End Date Мария Rodriguez MD [facility] [place] [address] PCP - General Internal Medicine 03/01/21 Additional Source Comments The information contained in this document represents components of the legal health record. It is not the complete legal health record.[facility]
--- OUTSIDE RECORDS SUMMARY | 2024-12-16 13:16 | XMS_ITS | Encounter Summary ---
Author Organization [facility] Address [address] [facility] 7 [place] [address] Care Team Providers Care Retail Team Member Name Role Phone Unavailable Primary Care Provider Unavailabl e Encounter Details Date Type Department Care Team (Latest Contact Info) Description 07/06/2021 Abstract [facility] CONVERSIONS Dental, Provider, DDS Social [...]
[2024-12-16 13:48] LABS: MANUAL DIFF FLAG NO
[2024-12-16 13:57] LABS: Hematocrit 38.0 % (37.0-47.0); Hemoglobin 12.5 g/dl (12.0-16.0); Imm Gran Abs Auto 0.01 X10*3/uL (0.00-0.03); Imm Gran Pct Auto 0.1 % (0.0-0.4); Lymphocytes Absolute Auto 2.7 X10*3/uL (1.2-4.9); Mean Corpuscular HGB Conc 32.9 g/dl (31.0-35.0); Mean Corpuscular Hemoglobin 28.5 pg (27.0-33.0); Mean Corpuscular Volume 86.6 fL (80.0-98.0); NRBC Abs Auto 0.000 X10*3/uL (0.0-0.012); NRBC Pct Auto 0.0 /100WBC (0.0-0.2); Platelet Count 281 X10*3/uL (160-400); Red Blood Count 4.39 X10*6/uL (4.20-5.50); White Blood Count 7.3 X10*3/uL (4.8-10.8)
[2024-12-16 15:09] LABS: Folate 5.0 ng/mL (> or = 4.0); Vitamin B12 505 pg/mL (200-900)
[2024-12-16 17:42] LABS: Alanine Aminotransferase 14 U/L (0-31); Anion Gap 9 (12-20); Aspartate Amino Transferase 16 U/L (5-31); Blood Urea Nitrogen 13 mg/dL (9-16); Calcium 8.7 mg/dL (8.4-10.2); Carbon Dioxide 24 mmol/L (22-29); Chloride 110 mmol/L (96-108); Cholesterol 160 mg/dL (<200); Estimated Glomerular Filt Rate > 60; HDL Cholesterol 42 mg/dL (>40); Potassium 4.8 mmol/L (3.3-5.1); Sodium 138 mmol/L (135-145); Triglycerides 83 mg/dL (<150)
== END 2024-12-16 10:52 | disposition home or self-care (01) ==
LOC: HO.HMGCLDS 10:51
PROVIDERS: PCP Internal Medicine; Visit Provider Internal Medicine
DX: J30.89 Other allergic rhinitis (principal); R12 Heartburn; G43.109 Migraine with aura, not intractable, without status migrainosus; Z83.49 Family history of other endocrine, nutritional and metabolic diseases
CPT/HCPCS: 36415; 80048; 80061; 82306; 82607; 82746; 84443; 84450; 84460; 85025

== ENCOUNTER 2024-12-30 10:31 | Outpatient (REF) | payer OTHER, SELFPAY | END 2024-12-30 10:32 | disposition home or self-care (01) | LOC: HO.LAB 10:31 | PROVIDERS: PCP Internal Medicine; Visit Provider Physician Assistant | DX: R11.0 Nausea (principal); R10.9 Unspecified abdominal pain; N39.0 Urinary tract infection, site not specified; Z13.89 Encounter for screening for other disorder | CPT/HCPCS: 81003; 82948; 87086; 99212 ==

== ENCOUNTER 2024-12-30 10:31 | Outpatient (AMB) | payer OTHER, SELFPAY ==
--- NOTE | 2024-12-30 10:50 | AM.OFFWIN_ITS ---
Intake Vital Signs 12/30/24 10:51 Height 5 ft 3 in Weight 129 lb BMI 22.8 BP 94/62 Blood Pressure Location Rt brachial Position Sitting Pulse 91 Pulse Source Pulse Oximeter Temp 97.8 F Temp Source Oral Pulse Oximetry (%) 99 Oxygen Delivery Method Room Air Intake Visit Reasons: ep severe stomach pain nasuea Intake Note: Patient presents with c/o severe abdominal pain, nausea since yesterday. Patient Tobacco Use Status: Never used Tobacco Allergies [id number] Allergy (Severe, Verified 12/30/24 10:54) throat swelling Penicillins (PENICILLINS) Allergy (Mild, Verified 12/30/24 10:54) RASH amoxicillin (From AUGMENTIN) Allergy (Unknown, Verified 12/30/24 10:54) RASH clavulanic acid (From AUGMENTIN) Allergy (Unknown, Verified 12/30/24 10:54) RASH Pork/Porcine Containing Products (PORK/PORCINE CONTAINING PRODUCTS) Adverse Reaction (Unknown, Verified 12/30/24 10:54) confucianism reasons Do you need a note to return to daycare/school/sports/work: Yes HPI HPI Comments History of Present Illness Details History of Present Illness - The patient is a 29-year-old female pr esenting with abdominal pain. - The abdominal pain began yesterday and was initially thought to be related to diarrhea, but subsequent 2 bowel movements were normal. - The pain intensified, causing signific ant discomfort and was accompanied by nausea and headache. - The patient reported increased frequen cy of urination and a sensation of relief after urination, although the abd pain quickly returned. - is able to eat and drink - She experienced chills but no fever, a nd her body temperature was noted to be elevated by her [employer] wearable device. - There is a history of unintentional we ight loss over the past year, attributed to medication for migraines causing loss of appetite. - The patient denies alcohol consumption and has no history of diabetes. - Patient denies any chance of and states her 1st day of her last menstrual period was last week. - Surgical history includes append[place]. Physical Exam General: Cooperative, healthy appearing, comfortable, no acute distress and well developed Orientation: Patient oriented x3 Limitations: No limitations Head: Normal to inspection Ears: Hearing grossly normal bilaterally Nose: Normal External nose present Face and sinus: Normal facial exam Eyes: Appearance normal, both eyes and all related structures Neck: Normal visual inspection and Yes full ROM Respiratory: Normal respiratory effort and able to speak in complete sentences. GI: normoactive BS, soft, negative murphys, slight TTP epigastric area, no other TTP throughout abdomen,no guarding Skin: No rashes or lesions noted Neuro: Patient oriented x3, gait normal Extremities: Normal to inspection, moving all extremities normally Review of Systems - Gastrointestinal: Reports severe abdom inal pain, nausea, and increased frequency of urination. Denies vomiting or diarrhea. - Neurological: Reports headache. Denies dizziness or syncope. - Constitutional: Reports chills and uni ntentional weight loss. Denies fever. - Endocrine: Reports increased thirst. All systems reviewed and are unremarkable except as noted in [facility] History POTS (postural orthostatic tachycardia syndrome) Environmental and seasonal allergies Vitamin D deficiency Family history of hyperthyroidism Chronic heartburn Fatigue Pseudoseizures Surgical History Hx of appendectomy Family History Father Epilepsy Hypertension Diabetes Mental health disorder CAD (coronary artery disease) B-cell non-Hodgkin lymphoma Status post coronary artery bypass graft Mother Hyperthyroidism Sister Hyperthyroidism Social History Housing: House Alcohol intake: never Patient Tobacco Use Status: Never used Tobacco e-Cigarette/Vaping Use: Never Used Current occupational status: employed Cognitive needs: No Hearing needs: No Vision needs: Yes Physical Exam Vital Signs: Last Vital Signs Temp 97.8 F 12/30/24 10:51 Pulse 91 12/30/24 10:51 BP 94/62 12/30/24 10:51 Pulse Ox 99 12/30/24 10:51 Oxygen Delivery Method Room Air 12/30/24 10:51 BMI result Body Mass Index 22.8 Results AMB Urinalysis, Automated UA Leukoctes 0 Lorenza/uL Last Edit by Carmelita Dorantes CMA on 12/30/24 11:07 UA Nitrite Negative Last Edit by Carmelita Dorantes CMA on 12/30/24 11:07 UA Urobilinogen 0.2 mg/dL Last Edit by Carmelita Dorantes CMA on 12/30/24 11: 07 UA Protein 0 mg/dL Last Edit by Carmelita Dorantes CMA on 12/30/24 11:07 UA pH 6.0 Last Edit by Carmelita Dorantes CMA on 12/30/24 11:07 UA Blood 0 Josh/uL Last Edit by Carmelita Dorantes CMA on 12/30/24 11:07 UA Specific [place]et 1.015 Last Edit by Carmelita Dorantes CMA on 12/30/24 11 :07 UA Ketone Negative Last Edit by Carmelita Dorantes CMA on 12/30/24 11:07 UA Bilirubin 0 mg/dL Last Edit by Carmelita Dorantes CMA on 12/30/24 11:07 UA Glucose 0 mg/dL Last Edit by Carmelita Dorantes CMA on 12/30/24 11:07 AMB Random Glucose (hemocue) AMB Random Glucose (hemocue) 92 mg/dL Last Edit by Carmelita Dorantes CMA on 12/30/24 11:36 Results Reviewed Results Reviewed: Laboratory Last Values Urine pH (Auto) 6.0 12/30/24 11:06 Specific [place] (Auto) 1.015 12/30/24 11:06 Urine Protein (Auto) 0 mg/dL 12/30/24 11:06 Glucose (UA)(Auto) 0 mg/dL 12/30/24 11:06 Urine Ketones (Auto) Negative 12/30/24 11:06 Urine Blood (Auto) 0 Josh/uL 12/30/24 11:06 Urine Nitrite (Auto) Negative 12/30/24 11:06 Urine Bilirubin (Auto) 0 mg/dL 12/30/24 11:06 Urine Urobilinogen (Auto) 0.2 mg/dL 12/30/24 11:06 Leukocyte Esterase (Auto) 0 Lorenza/uL 12/30/24 11:06 Assessment & Plan Assessment & Plan (1) Abdominal pain in female: Code(s): R10.9 - Unspecified abdominal pain Plan: Assessment and Plan Viral Gastroenteritis - VSS, pt well appearing and with no alarming findings on the physical exam. - UA neg for leuks, neg nitrites, neg blood, neg protein, will send culture to be thorough. - The patient is likely experiencing a viral gastrointestinal infection, given the symptoms of abdominal pain and nausea. - Supportive care with hydration and symptomatic treatment is recommended. - Dicyclomine and ondansetron are prescribed for abdominal pain and nausea, respectively. - If symptoms worsen or if fever develops, emergency evaluation is recommended. - Increased thirst is noted, and blood glucose levels were checked, she is at 92 mg/dl. - The weight loss is attributed to migraine medication side effects. - Rest, hydrate, work note provided. (2) Nausea: Code(s): R11.0 - Nausea Plan: as above Orders: Orders AMB Random Glucose (hemocue) Today Z13.9 - Encounter for screening, unspecified AMB Urinalysis Automated Today Z13.9 - Encounter for screening, unspecified Urine Culture Today N39.0 - Urinary tract infection, site not specified Medications: New dicyclomine 10 mg PO TID 10 caps 0RF ondansetron 4 mg PO Q8H PRN 10 tabs 0RF nausea and vomiting Coding Level of Care Code Est Pt Level 3 (72490) Diagnoses Abdominal pain in female R10.9 Nausea R11.0
[2024-12-30 10:51] VITALS: BP 94/62; PULSE 91; TEMP 36.6; O2SAT 99; BMI 22.8
--- OUTSIDE RECORDS SUMMARY | 2024-12-30 12:20 | XMS_ITS | Encounter Summary ---
Author Organization [facility] Address [address] [facility] 7 [place] [address] Care Team Providers Care Waiter/Waitress Economy Class Name Role Phone Unavailable Primary Care Provider Unavailabl e Encounter Details Date Type Department Care Team (Latest Contact Info) Description 07/06/2021 Abstract [facility] CONVERSIONS Dental, Provider, DDS Social History [...]
--- OUTSIDE RECORDS SUMMARY | 2024-12-30 12:20 | XMS_ITS | Encounter Summary ---
Author Organization [employer] Address [address] [facility] 7t [place] [address] Care Team Providers Care Spinning Bath Person Name Role Phone Unavailable Primary Care Provider Unavailabl e Reason for Visit * Reason Onset Date Comments rs no show appt 02/05/2024 Encounter Details Date Type Department Care Team ([facility] st Contact Info) Description 02/05/2024 Telephone C [facility] [address] [place], [place] [phone] Yrn, Jeffrey [address] [place], [place] [phone] rs no show appt Social History Tobacco [...]
--- OUTSIDE RECORDS SUMMARY | 2024-12-30 12:20 | XMS_ITS | Clinical Summary ---
Author Organization [employer] Address [address] [facility] [address] [place] [address] Care Team Providers Care Lan Analyst Name Role Phone Unavailable Primary Care Provider Unavailabl e Allergies Active Allergy Reactions Criticality Noted Date Comments Amoxicillin-Pot Clavulanate 12/20/19 24 Penicillins 05/22/2024 Pork Allergy 05/22/2024 no pork- mu-ism reasons Medications clonazePAM (KlonoPIN) 1 MG tablet [...]
--- OUTSIDE RECORDS SUMMARY | 2024-12-30 12:20 | XMS_ITS | Data Portability ---
Author Organization [facility] Address [address] [place] [address] Assessment No assessment recorded. Plan of Treatment Reminders Order Date Submit Date Provider Last Modified By Organization Details Last Modified Time Details Appointments None recorded. Lab rapid strep group A, throat 2022 023 [facility]_ayla desai, [address] [place] [address] [place], [address], 3 16:45:29 urinalysis, dipstick 2022 023 tati _ayla desai, [address] [place] [address], [place], [address], 3 19:35:57 test, urine 2022 023 tati _ayla desai, [address] [place] [address], [address], 3 19:35:57 Referral None recorded. Procedures None recorded. Surgeries None recorded. Imaging None recorded. Medication Orders prednisone 20 mg tablet 2022 023 DONNY [id number], [address] [place], [address], 3 17:05:09 benzonatate 100 mg capsule 2022 023 [id number], [address] [place], [address], 3 17:45:17 fexofenadin e-pseudoeph edrine ER 180 mg-240 mg tablet,ext. release 24 hr 2022 023 DONNY [id number], [address] [facility] [place], [address], 3 16:26:20 prednisone 20 mg tablet 2022 023 [email or web address] [id number], [address] [facility] [place], [address], 3 16:25:57 Patient TargetsNo targets recorded. Patient Instructions Encounter Date Encounter Id Patient Instructions Last Modified By Organization Details Last Modified Time 04/24/2022 [id number] Sinusitis is an infection of the lining [...] care for yourself at home? Take an cfsf-jvs-zgaasna pain medicine. Avoid Ibuprofen, Aleve and Aspirin if . If the doctor prescribed antibiotics, take them as directed. Do not stop taking them just because you feel better. You need to take the full course of antibiotics. Be careful when taking cqll-roq-erxabnv cold or influenza (flu) medicines and Tylenol [...] nose drops at a grocery store or [employer]. Or you can make your own at [...] worse. [email or web address] Not available 04/24/2022 19:33:59 08/14/2022 [id number] laryngitis: care instructions Not available 08/14/2022 17:05:07 upper respirator y infection (cold): care instructions Not available 08/14/2022 17:05:17 Reason for Referral None Reported. Results Created Date Observation Date Name Description Value Unit Range Abnormal Flag Note LastModifiedBy Organization Detail LastModifiedTime 04/24/1904/24/2022 pregn tegan test, urine Unknown Analyte Normal = Negati ve Not Available [address], [address], 04/24/2022 19:11:09 04/24/19 23 04/24/2022 pregn tegan test, urine Unknown Analyte negati ve Not Available [address], [address], 04/24/2022 19:11:09 04/24/19 23 04/24/2022 urina lysis , dipst ick Unknown Analyte Normal = light yellow Not Available [address], [address], 04/24/2022 19:10:12 04/24/19 23 04/24/2022 urina lysis , dipst ick Unknown Analyte Dark Yellow Not Available [facility] [address] [place] [address], [place], [address], 04/24/2022 19:10:12 04/24/19 23 04/24/2022 urina lysis , dipst ick Unknown Analyte Normal = clear Not Available [facility], [place], [address], 04/24/2022 19:10:12 04/24/19 23 04/24/2022 urina lysis , dipst ick Unknown Analyte Clear Not Available ayla em[address], [place], [address], 04/24/2022 19:10:12 04/24/19 23 04/24/2022 urina lysis , dipst ick Unknown Analyte Normal = negati ve Not Available [facility], [place], [address], 04/24/2022 19:10:12 04/24/19 23 04/24/2022 urina lysis , dipst ick Unknown Analyte Negati ve Not Available [facility] [address] [place] [address], [place], [address], 04/24/2022 19:10:12 04/24/19 23 04/24/2022 urina lysis , dipst ick Unknown Analyte Normal = Negati ve Not Available [facility] [address] [place] [address], [place], [address], 04/24/2022 19:10:12 04/24/19 23 04/24/2022 urina lysis , dipst ick Unknown Analyte Negati ve Not Available [facility] [address] [place] [address], [place], [address], 04/24/2022 19:10:12 04/24/19 23 04/24/2022 urina lysis , dipst ick Unknown Analyte Normal = Negati ve Not Available jina mac [address], [place], [address], 04/24/2022 19:10:12 04/24/19 23 04/24/2022 urina lysis , dipst ick Unknown Analyte Trace Not Available [address], [place], [address], 04/24/2022 19:10:12 04/24/19 23 04/24/2022 urina lysis , dipst ick Unknown Analyte Normal = 1.010, 1.015, 1.020 Not Available [facility] [address], [place], [address], 04/24/2022 19:10:12 04/24/1904/24/2022 urina lysis , dipst ick Unknown Analyte 1.025 Not Available [address], [place], [address], 04/24/2022 19:10:12 04/24/1904/24/2022 urina lysis , dipst ick Unknown Analyte Normal = Negati ve Not Available jina mac [address], [place], [place], [address], 04/24/2022 19:10:12 04/24/1904/24/2022 urina lysis , dipst ick Unknown Analyte Trace- intact Not Available [facility] [address], [place], [place], [address], 04/24/2022 19:10:12 04/24/19 23 04/24/2022 urina lysis , dipst ick Unknown Analyte Normal = 6.5, 7.0, 7.5, 8.0 Not Available [address] [place] [address], [place], [address], 04/24/2022 19:10:12 04/24/19 23 04/24/2022 urina lysis , dipst ick Unknown Analyte 6.5 Not Available [facility] [address], [place], [address], 04/24/2022 19:10:12 04/24/19 23 04/24/2022 urina lysis , dipst ick Unknown Analyte Normal = Negati ve Not Available [facility] [address], [place], [address], 04/24/2022 19:10:12 04/24/19 23 04/24/2022 urina lysis , dipst ick Unknown Analyte Trace Not Available [address], [place], [address], 04/24/2022 19:10:12 04/24/19 23 04/24/2022 urina lysis , dipst ick Unknown Analyte Normal = 0.2, 1.0 Not Available [address], [place], [address], 04/24/2022 19:10:12 04/24/19 23 04/24/2022 urina lysis , dipst ick Unknown Analyte 1.0 E.U./d L Not Available [address], [place], [address], 04/24/2022 19:10:12 04/24/19 23 04/24/2022 urina lysis , dipst ick Unknown Analyte Normal = Negati ve Not Available [address], [place], [address], 04/24/2022 19:10:12 04/24/19 23 04/24/2022 urina lysis , dipst ick Unknown Analyte Negati ve Not Available [address], [place], [address], 04/24/2022 19:10:12 04/24/19 23 04/24/2022 urina lysis , dipst ick Unknown Analyte Normal = Negati ve Not Available [address] [place] [address], [place], [address], 04/24/2022 19:10:12 04/24/19 23 04/24/2022 urina lysis , dipst ick Unknown Analyte Negati ve Not Available [address] [place] [address], [place], [address], 04/24/2022 19:10:12 08/15/19 23 08/14/2022 rapid strep group A, throa t Unknown Analyte Normal = Negati ve Not Available [address] [place] [address], [place], [address], 08/14/2022 16:29:12 08/15/19 23 08/14/2022 rapid strep group A, throa t Unknown Analyte negati ve Not Available [address] [place] [address], [place], [address], 08/14/2022 16:29:12 Result Notes None recorded. Problems Name Problem SNOMED Code Status Onset Date Resolution Date Notes Provider Name and Address Organization Details Recorded Time Anxiety 65789008 Active 023 MIKO JORDAN null, [place] - [facility] 3 19:09:20 Depressive disorder 87462903 Active 023 MIKO JORDAN null, [place] - [facility] 3 19:09:28 Insomnia 652891184 Active 023 MIKO JORDAN null, PA - [facility] 3 19:09:33 Migraine 32286614 Active 023 MIKO JORDAN null, PA - [...] Updated DateTime 3 162.56 cm 25.7 kg/m2 21144.8 6 g 0 20 /min 99 % 99 % 76 /min 98.4 [degF] 132/80 mm[Hg] MIKO JORDAN PA - [facility] 3 19:04:56 Date Recorded Body height Body mass index (BMI) Body weight Body temperature Respiratory rate Oxygen saturation Oxygen saturation in Arterial blood by Pulse oximetry Heart rate Systolic And Diastolic Provider Name and Address Organization Details Last Updated DateTime 3 162.56 cm 19.7 kg/m2 37053.1 2 g 98.2 [degF] 16 /min 97 % 97 % 81 /min 109/78 mm[Hg] ARIES ADAMS [place] - [facility] 3 16:28:32 Social History Question Answer Notes LastModified by Vurb Details LastModified Time Tobacco Smoking Status Never Smoker MIKO romero [place] - [facility] 04/24/2022 19:10:01 Have You Recently Traveled Abroad? No Information not available 04/24/2022 Sex: Unknown Functional Status Question Answer Note LastModified by Vurb Details LastModified Time Do you use any illicit or recreational drugs? No Information not available 04/24/2022 Do you or have you ever used any other forms of tobacco or nicotine? No Information not available 04/24/2022 What is your level of alcohol consumption? None [email or web address] Information not available 04/24/2022 Mental Status None recorded. Family History Relationship Description Onset Age of this Age Resolved Age Notes LastModified by Organization Details LastModified Time Father No current problems or disability [email or web address] Not available 04/24 19:09:50 Mother No current problems or disability [email or web address] Not available 04/24 19:09:50 Medical History Condition [...] ICD10 Code Diagnosis IMO Codes Diagnosis Note [id number] [facility] [address] [address] [place] [address] 08/02/2017 14:11:03 08/02/2017 15:47:48 [id number] [facility] [address] [address] [place] [address] 11/28/2017 14:03:54 11/28/2017 15:07:52 [id number] [address] [address] [address] [address] [place] [address] 06/08/2018 20:09:49 06/08/2018 20:27:16 [id number] [facility] [address] [address] [place] [address] 11/25/2018 13:37:21 11/25/2018 14:11:43 [id number] [facility] [address] [address] [place] [address] 04/13/2016 15:28:35 04/13/2016 15:58:09 [id number] [facility] [address] [address] [place] [address] 07/09/2019 14:03:54 07/09/2019 14:26:53 [id number] [address] [address] [address] [place] [address] 06/14/2016 11:49:13 06/14/2016 13:04:06 [id number] [address] [address] [address] [address] [place] [address] 12/10/2018 18:36:46 12/10/2018 19:37:40 [id number] [address] [address] [place] [address] 11/26/2017 10:23:04 11/26/2017 11:27:01 [id number] [address] [address] [address] [address] [place] [address] 11/01/2016 14:26:42 11/01/2016 15:28:03 [id number] [address] [address] [address] [place] [address] 03/25/2021 15:54:29 03/25/2021 18:50:14 [id number] [address] [address] [address] [address] [place] [address] 04/06/2017 17:46:58 04/06/2017 18:35:42 [id number] [address] [address] [address] [place] [address] 01/15/2019 08:20:12 01/15/2019 09:34:19 [id number] Ryne Irving NP [address] [address] [place] [address] 04/24/2022 18:50:06 04/24/2022 19:36:32 Acute sinusitis 80699654 J01.90 Mild dehydration 4754816 119 108 E86.0 [id number] Isabella Sepulveda MD [address] [address] [place] [address] 08/14/2022 15:22:24 08/14/2022 17:06:48 Acute laryngitis 5278313 J04.0 Please follow up with PCP or Urgent Care in 3-5 days if no improvemen t or if any new symptoms occur that are concerning . Upper resp iratory infection 68152796 J06.9 Please follow up with PCP or [...] HEALTH NET PLAN (MEDICAID HMO) BRITTANY Mitchellid [id number] Juayn Julian Notes Date Note Type Note Provider Name and Address Organization Details Recorded Time 3 text/html CongestionReported by Patientnasal congestion with post nasal drip x 3 days. denies any fever or fever with chills. no SOB or respiratory distress. Ryne Irving NP [address] [place], [address], [place] - [facility] 04/24/2022 19:36:41 3 text/html Sore throatReported by PatientSore ThroatFor associated symptoms, patient reportshoarseness,nasal congestion, andcoughing. For source of patient information, patient reportsinformation obtained from patient. For location, patient reportsthroat. For severity, patient reportsmoderate. For quality, patient reportshurts to swallow. For onset/timing, patient reports3 days. For context, patient reportsno sick contacts,no foreign travel, andnon-smoker. Isabella Sepulveda MD [address] [place], [address], [place] [facility] 08/14/2022 17:46:39 OBGyn Episode No OBEpisode recorded.
--- OUTSIDE RECORDS SUMMARY | 2024-12-30 12:20 | XMS_ITS | Clinical Summary ---
Author Organization [facility] Address [address] [place] [address] Phone Care Team Providers Care Cardiovascular Technologist Name Role Phone Мария Rodriguez MD Primary [...] topic Medical Devices Not on file Insurance [facility] [place] [address] Care Teams Cardiovascular Technologist Relationship Specialty Start Date End Date Мария Rodriguez MD [facility] [place] [address] PCP - General Internal Medicine 03/01/21 Additional Source Comments The information contained in this document represents components of the legal health record. It is not the complete legal health record.[facility]
== END 2024-12-30 11:38 | disposition home or self-care (01) ==
PROVIDERS: PCP Internal Medicine; Visit Provider Physician Assistant
DX: R10.9 Unspecified abdominal pain (principal); R11.0 Nausea; Z13.9 Encounter for screening, unspecified